=== PATIENT | male | born 1945 | race Caucasian/White ===

== ENCOUNTER 2022-12-30 14:49 | Outpatient (AMB) | payer MEDICARE, SELFPAY ==
[2022-12-30 15:01] VITALS: BP 120/78; PULSE 60; O2SAT 93; BMI 42.0
--- NOTE | 2022-12-30 15:01 | A.OFFPC_ITS ---
Vital Signs 12/30/22 15:01 Height 5 ft 11 in Weight 301 lb 8 oz BMI 42.0 BP 120/78 Pulse 60 Pulse Source Pulse Oximeter Pulse Oximetry (%) 93 Intake Visit Reasons: New patient-High BP Intake Note: Patient is here as a new patient, would like to talk about congestion. He has a history of high blood pressure. Allergies topical bacitricin Allergy (Mild, Uncoded 12/30/22 15:05) rash Tobacco use date assessed: 12/30/22 Fall risk assessment: 1 Fall in past year Last assessed Fall Risk: 12/30/22 Dental Screening Dental Screen Date: 12/30/22 Did you have a dental visit in the last 12 months?: Yes Did you have a dental problem in the last 6 months where you did not have access to dental care?: No Was dental information given to patient?: Patient has dentist HPI New patient-High BP HPI Details New patient Prior PCP:? Dr Weiss in [facility] Last office visit/CPE: Almost a year Acute issue(s): Prostate CA. Neg Bone Scan & CT. Has new local Urologist at [facility].Dr Farr Has oncologist. Radiation. NAsal congestion and discharge PMHx: Prostate CA, HTN, Gout, Arthritis, Renal cell CA, HLD. SurgHx: B/L Knee replacements, B/L Carpal Tn. GB, Ing hernia, R ankle fusion, R kidney partial resection, L kidney ablation FHx: Sister: Brain Tumor, Mom: Leukemia. Brother: DM, Asthma. SocHx: Nonsmoker, EtOH 3 drinks a week., No Drugs PFSH Medical History (Updated 12/30/22 @ 15:59 by Harris Flynn) FH: cholecystectomy Arthritis of right ankle Prostate cancer High blood pressure Surgical History (Updated 12/30/22 @ 15:59 by Harris Flynn) History of bilateral knee replacement History of carpal tunnel surgery History of ankle surgery Family History (Updated 12/30/22 @ 15:31 by Radha Norris CMA) Mother Cardiovascular disease Cancer Father High blood pressure Social History (Updated 12/30/22 @ 15:27 by Radha Norris CMA) Household Members: Spouse Housing Other:: cottage Are you a primary health care aide to a significant other at home: Yes Do you presently have visiting nurse or other home services: No 75 years or older and lives alone: No Alcohol intake: current Patient Tobacco Use Status: Never used Tobacco e-Cigarette/Vaping Use: Never Used Special nikkie needs: Yes Special nikkie accommodation details: [employer] service: No Current occupational status: retired Cognitive needs: No Hearing needs: Yes Vision needs: Yes (patient wears glasses) Questionnaire PHQ-9 Over the last 2 weeks, how often have you been bothered by any of the following problems? 1. Little interest or pleasure in doing things: not at all 2. Feeling down, depressed, or hopeless: several days 3. Trouble falling or staying asleep, or sleeping too much: not at all 4. Feeling tired or having little energy: not at all 5. Poor appetite or overeating: not at all 6. Feeling bad about yourself - or that you are a failure or have let yourself or your family down: not at all 7. Trouble concentrating on things, such as reading the newspaper or watching television: not at all 8. Moving or speaking so slowly that other people could have noticed. Or the opposite - being so fidgety or restless that you have been moving around a lot more than usual: not at all 9. Thoughts that you would be better off or of hurting yourself in some way: not at all Total score: 1 Source: Developed by Drs. Yusuf Perez, Kylah Wright, Tyler Paulson and colleagues, with an educational mamadou from [employer]. Thrive Questionnaire Date Thrive assessed: 12/30/22 I am a: Patient What is your living situation today?: I have a steady place to live Within the past 12 months, did the food you bought not last and you didn't have the money to get more?: Never true Within the past 12 months, did you worry whether your food would run out before you got money to buy more?: Never true Do you have trouble paying for medicines?: No Do you have trouble getting transportation to medical appointments?: No Do you have trouble paying your heating and electricity bill?: No Do you have trouble taking care of your child, family member or friend?: No Do you have trouble with day-to-day activities such as bathing, preparing meals, shopping, managing finances, etc.?: No Are you currently unemployed and looking for a job?: No Are you interested in more education?: No AUDIT C Alcohol Use Questionnaire (AUDIT-C) 1. How often do you have a drink containing alcohol?: 2-3 times a week 2. How many drinks containing alcohol do you have on a typical day when you are drinking?: 1 or 2 3. How often do you have six or more drinks on one occasion?: Never Total Score: 3 TRACE-7 AMB Questionnaire TRACE-7 Date TRACE - 7 assessed: 12/30/22 Feeling nervous, anxious, or on edge: 0 = Not at all Not being able to stop or control worryin = Several days Worrying too much about different things: 1 = Several days Trouble relaxin = Several days Being so restless that it is hard to sit still: 0 = Not at all Becoming easily annoyed or irritable: 0 = Not at all Feeling afraid as if something awful might happen: 0 = Not at all Total TRACE-7 score (0-4 normal; 5-9 mild; 10-14 moderate; 15-21 severe): 3 Source: Developed by Drs. Yusuf Perez, Kylah Wright, Tyler Paulson and colleagues, with an educational mamadou from [employer]. Review of Systems Const Denies chills, Denies fatigue, Denies fever(s), Denies headache(s) and Denies weakness ENT Denies dizziness and Denies headache(s) Card Denies chest pain, Denies lightheadedness, Denies dyspnea and Denies other (Palpitations) Resp Denies cough, Denies dyspnea, Denies wheezing and Denies other ( shortness of breath) Musc Denies numbness and Denies tingling Neuro Denies dizziness, Denies headache(s), Denies numbness, Denies tingling, Denies paresthesias and Denies weakness Psych Denies anxiety and Denies depression Endo Denies fatigue Aller/Immun Denies wheezing Physical exam (Primary Care) Vital Signs: Last Vital Signs Pulse 60 12/30/22 15:01 BP 120/78 12/30/22 15:01 Pulse Ox 93 12/30/22 15:01 BMI result Body Mass Index 42.0 Tobacco/Smoking Status: Tobacco use Status Tobacco use date assessed 12/30/22 12/30/22 15:32 Patient Tobacco Use Status Never used Tobacco 12/30/22 15:32 e-Cigarette/Vaping Use Never Used 12/30/22 15:32 PHQ-9: PHQ-9 Score PHQ-9: Total score 1 12/30/22 15:37 Thrive Assessment: Date of Thrive Assessment Date Thrive assessed 12/30/22 12/30/22 15:38 Const General: no acute distress and well developed Orientation/consciousness: patient oriented x3 HENMT Head: Yes normocephalic and Yes atraumatic Eyes General: appearance normal, both eyes and all related structures Pupils: Equal, round and reactive pupils present EOM: EOMs intact bilaterally Resp Effort & Inspection: normal respiratory effort Auscultation: clear to auscultation bilaterally Cardio Rate: regular rate Rhythm: regular rhythm Heart sounds: S1 normal heart sound present, S2 normal heart sound present, no gallops, no murmurs and no rubs Neuro General: patient oriented x3 and gait normal Cranial nerves: Yes Equal, round and reactive pupils present Psych Affect: normal affect Assessment and Plan Assessment & Plan (1) Abnormal heart rhythm: Code(s): I49.9 - Cardiac arrhythmia, unspecified Plan: EKG: ?Mild?sinus?bradycardia?with?PVCs. ?Inferior?infarct - age?undetermined,?no?ST-T-wave?changes No?symptoms Referred?to?cardiology (2) Gout: Code(s): M10.9 - Gout, unspecified Plan: Stable Continue?colchicine Check?uric?acid?level (3) Hyperlipidemia: Code(s): E78.5 - Hyperlipidemia, unspecified Plan: Check?lab (4) Rhinitis: Code(s): J31.0 - Chronic rhinitis Plan: Unclear?cause; probable?irritant?or?allergy Trial?Flonase Trial?cetirizine Humidified?air Nasal?saline Recommended?hypoallergenic?pillow?case?and?mattress?covers?and?change?bedding?fr equently (5) Arthritis: Code(s): M19.90 - Unspecified osteoarthritis, unspecified site Plan: Reviewed?renal?function?and?this?is?within?normal?limits Could?use?some?NSAIDs?sparingly Topicals?advised. 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 Referred to Cardiology Orders: Orders Complete Blood Count Auto Diff Today Z00.00 - Encounter for general adult medical examination without abnormal findings Microalbumin, Random (w Creat) Today I10 - Essential (primary) hypertension TSH reflex Free T4 Today Z00.00 - Encounter for general adult medical examination without abnormal findings Comprehensive [place]. Panel Fast Today Z00.00 - Encounter for general adult medical examination without abnormal findings Lipid Panel Today Z00.00 - Encounter for general adult medical examination without abnormal findings Prostate Specific Antigen Scr Today Z12.5 - Encounter for screening for malignant neoplasm of prostate UA and rflx microscopic Today Z00.00 - Encounter for general adult medical examination without abnormal findings AMB EKG-In Office Today I49.9 - Cardiac arrhythmia, unspecified Uric Acid Today M10.9 - Gout, unspecified Referrals Cardiology Referral I49.9 - Cardiac arrhythmia, unspecified, R94.31 - Abnormal electrocardiogram [ECG] [EKG] Medications: New fluticasone propionate 50 mcg/actuation (Flonase Allergy Relief) administer into each nostril 1 spray intranasal Q12H 30 days 16 grams 2RF cetirizine (All Day Allergy (cetirizine)) 10 mg PO DAILY 90 days PRN 90 tabs 2RF allergy symptoms Coding Level of Care Code New Pt Level 4 (77058) Diagnoses Abnormal heart rhythm I49.9 Gout M10.9 Hyperlipidemia E78.5 Rhinitis J31.0 Arthritis M19.90 Abnormal EKG R94.31
== END 2022-12-30 16:46 | disposition home or self-care (01) ==
PROVIDERS: PCP Family Medicine; Visit Provider Family Medicine
DX: I49.9 Cardiac arrhythmia, unspecified (principal); M10.9 Gout, unspecified; E78.5 Hyperlipidemia, unspecified; C61 Malignant neoplasm of prostate; J31.0 Chronic rhinitis; M19.90 Unspecified osteoarthritis, unspecified site; R94.31 Abnormal electrocardiogram [ECG] [EKG]; I10 Essential (primary) hypertension
CPT/HCPCS: 93000; 99204

== ENCOUNTER 2023-01-01 08:11 | Outpatient (REF) | payer MEDICARE, SELFPAY ==
[2023-01-01 11:38] LABS: MANUAL DIFF FLAG NO
[2023-01-01 11:50] LABS: Appearance Urine Clear; Color Urine Yellow; Glucose Urine UA Negative (Negative); Leukocyte Esterase Urine Negative (Negative); Nitrite Urine Negative (Negative); PH 5.5 (5.0-9.0); Specific Gravity - Urine 1.015 (1.005-1.025); Urine Blood Negative (Negative); Urine Ketones Negative (Negative); Urine Protein Negative (Neg-Trace)
[2023-01-01 12:07] LABS: Basophils Percent Auto 0.4 % (0-2); Eosinophils Absolute Auto 0.1 X10*3/uL (0.0-0.4); Eosinophils Percent Auto 2.3 % (0-4); Hematocrit 45.4 % (42.0-52.0); Hemoglobin 14.5 g/dl (14.0-18.0); Imm Gran Abs Auto 0.02 X10*3/uL (0.00-0.03); Imm Gran Pct Auto 0.4 % (0.0-0.4); Lymphocytes Absolute Auto 1.1 X10*3/uL (1.2-4.9); Lymphocytes Percent Auto 22.4 % (20-40); Mean Corpuscular HGB Conc 31.9 g/dl (31.0-36.0); Mean Corpuscular Hemoglobin 25.9 pg (27.0-33.0); Mean Corpuscular Volume 81.2 fL (80.0-98.0); Mean Platelet Volume 11.4 fL (9.4-12.4); Monocytes Absolute Auto 0.6 X10*3/uL (0.1-1.2); Monocytes Percent Auto 12.4 % (2-11); Neutrophils Percent Auto 62.1 % (45-73); Platelet Count 181 X10*3/uL (160-400); Red Blood Count 5.59 X10*6/uL (4.60-5.80); Red Cell Distribution Width 17.2 % (11.0-16.0); White Blood Count 4.8 X10*3/uL (4.8-10.8)
[2023-01-01 13:07] LABS: Prostate Specific Antigen Scr 1.21 ng/mL (<0.05-4.0)
[2023-01-01 13:09] LABS: Alanine Aminotransferase < 5 U/L (0-40); Albumin Level 3.8 g/dL (3.5-5.0); Alkaline Phosphatase 52 U/L (39-117); Anion Gap 12 (12-20); Aspartate Amino Transferase 12 U/L (5-37); Bilirubin Total 0.9 mg/dL (0.0-1.0); Blood Urea Nitrogen 32 mg/dL (9-16); Calcium 9.2 mg/dL (8.4-10.2); Carbon Dioxide 29 mmol/L (22-29); Chloride 105 mmol/L (96-108); Cholesterol 155 mg/dL (<200); Estimated Glomerular Filt Rate > 60; Glucose Fasting 96 mg/dL (60-99); HDL Cholesterol 53 mg/dL (>40); LDL Cholesterol Calculated 90 mg/dL (<100); Potassium 4.3 mmol/L (3.3-5.1); Sodium 142 mmol/L (135-145); TSH reflex Free T4 1.45 uIU/mL (0.32-4.0); Total Protein 6.4 g/dL (6.5-8.0); Triglycerides 61 mg/dL (<150); Uric Acid 6.3 mg/dL (3.4-7.0)
[2023-01-01 13:12] LABS: Creatinine Urine 98.84 mg/dL; Microalbum/Creatinine Ratio Ur 53.6 ug/mg cr (<30)
== END 2023-01-01 08:12 | disposition home or self-care (01) ==
LOC: HO.WFDLDS 08:11
PROVIDERS: Visit Provider Family Medicine
DX: Z00.00 Encounter for general adult medical examination without abnormal findings (principal); I10 Essential (primary) hypertension; M10.9 Gout, unspecified; Z12.5 Encounter for screening for malignant neoplasm of prostate
CPT/HCPCS: 36415; 80053; 80061; 81003; 82043; 82570; 84153; 84443; 84550; 85025

== ENCOUNTER 2023-04-13 10:46 | Outpatient (AMB) | payer MEDICARE, SELFPAY ==
[2023-04-13 10:59] VITALS: BP 150/70; PULSE 65; BMI 41.5
--- NOTE | 2023-04-13 10:59 | MHC.OFFVIS ---
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 Intake Note: NPV w/ EKG Last Trimmer Required: No Accompanied by: Self / Same As Patient Allergies topical bacitricin Allergy (Mild, Uncoded 04/13/23 11:00) rash Medication List - Last Reconciled 04/13/23 by Elliot Ambrosio MD abiraterone 1,000 mg PO DAILY amlodipine 5 mg PO DAILY 90 days ascorbic acid (vitamin C) 2 grams PO Q8H aspirin (Adult Aspirin Regimen) 81 mg PO DAILY cetirizine (All Day Allergy (cetirizine)) 10 mg PO DAILY PRN 90 days cholecalciferol (vitamin D3) 50 mcg PO DAILY colchicine 0.6 mg PO DAILY finasteride 5 mg PO DAILY fluticasone propionate 50 mcg/actuation (Flonase Allergy Relief) 1 spray intranasal Q12H 30 days potassium citrate ER 20 mEq PO TID prednisone 5 mg PO DAILY saw palmetto 160 mg PO BID tamsulosin 0.4 mg PO DAILY HPI HPI Comments History of Present Illness Details Karmen is here for consultation regarding an abnormal EKG. Patient himself denies any history of coronary disease or myocardial infarction or cardiomyopathy or in fact any other cardiac issues. He does not walk much because of musculoskeletal issues. Otherwise, he states he is living in [place], but because of his 's health, he moved locally as his daughter lives nearby. Within limits of her activity, he has not noticed any clear-cut anginal-type symptoms. A vague shoulder pain in the left side. The could also be muscular however. Some shortness of breath at times but again he is also overweight. [facility] Medical History FH: cholecystectomy Arthritis of right ankle Prostate cancer High blood pressure Surgical History History of bilateral knee replacement History of carpal tunnel surgery History of ankle surgery Family History Mother Cardiovascular disease Cancer Father High blood pressure Social History Household Members: Spouse Housing Other:: nelda Are you a primary day care center director to a significant other at home: Yes Do you presently have visiting nurse or other home services: No 75 years or older and lives alone: No Alcohol intake: current Patient Tobacco Use Status: Never used Tobacco e-Cigarette/Vaping Use: Never Used Special nikkie needs: Yes Special nikkie accommodation details: [employer] service: No Current occupational status: retired Cognitive needs: No Hearing needs: Yes Vision needs: Yes (patient wears glasses) Review of Systems Const Denies chills, Denies daytime sleepiness, Denies fatigue, Denies fever(s), Denies frequent falls, Denies night sweats, Denies snoring, Denies weakness, Denies weight gain and Denies weight loss Eyes Denies loss of vision ENT Denies dizziness and Denies hearing loss Card Denies chest pain, Denies chest pain with activity, Denies syncope, Denies rapid heart rate, Denies edema, Denies claudication, Denies leg edema, Denies lightheadedness, Denies palpitations, Denies dyspnea on exertion and Denies orthopnea Resp Denies cough, Denies excessive phlegm production, Denies dyspnea on exertion, Denies snoring and Denies wheezing GI Denies abdominal pain, Denies hematochezia, Denies change in bowel habits, Denies change in stool character, Denies heartburn, Denies nausea and Denies vomiting Denies hematuria, Denies dysuria and Denies urinary frequency Musc Denies arthralgias, Denies muscle weakness, Denies numbness and Denies tingling Skin/Breast Denies nail changes and Denies rash Neuro Denies Abnormal speech present, Denies dizziness, Denies syncope, Denies frequent falls, Denies loss of vision, Denies memory loss, Denies numbness, Denies tingling and Denies weakness Psych Denies depression and Denies memory loss Endo Denies fatigue and Denies palpitations Aller/Immun Denies wheezing Physical Exam Vital Signs: Last Vital Signs Pulse 65 04/13/23 10:59 BP 150/70 H 04/13/23 10:59 BMI result Body Mass Index 41.5 Const General: comfortable and no acute distress Orientation/consciousness: patient oriented x3 HEENT Other: Unremarkable Head: Yes normal to inspection Neck Neck: Yes normal visual inspection Chest Chest palpation & inspection: normal inspection of the chest Resp Auscultation: clear to auscultation bilaterally Cardio Palpation: normal PMI Heart sounds: S1 normal heart sound present, S2 normal heart sound present, no gallops, Murmur heart sound present systolic II/ and at the right sternal border and no rubs GI Palpation (GI): Soft to palpation Back/Spine/Pelvis Other: unremarkable Skin General skin exam: no rashes or lesions noted Neuro General: patient oriented x3 Speech: No Abnormal speech present Extrem General: Yes normal to inspection Psych Mental Status: mental status grossly normal Office Procedures EKG Details: EKG with sinus rhythm at 65/Min; borderline PA prolongation to 212 milliseconds; right bundle-branch block; PVCs; [place]. 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 We will get an echocardiogram for cardiac function assessment. If any significant cardiomyopathy/wall motion abnormalities, possibly consider cardiac catheterization. If not, stress testing. He also has aortic stenotic murmur and hence need to ensure there is nothing hemodynamically significant. (2) PVC (premature ventricular contraction): Code(s): I49.3 - Ventricular premature depolarization Plan: Obtain Holter for assessing PVC burden. Plan Follow-up after testing. Orders: Orders CA echo transthoracic complete Today I49.3 - Ventricular premature depolarization, R94.31 - Abnormal electrocardiogram [ECG] [EKG] ECG 3 day holter monitor Today I49.3 - Ventricular premature depolarization Coding Level of Care Code New Pt Level 4 (81670) Diagnoses Abnormal electrocardiography R94.31 PVC (premature ventricular contraction) I49.3 CPT Codes EKG - CPT: [id number], Complete ([id number])
== END 2023-04-13 11:21 | disposition home or self-care (01) ==
PROVIDERS: PCP Family Medicine; Visit Provider Internal Medicine
DX: R94.31 Abnormal electrocardiogram [ECG] [EKG] (principal); I49.3 Ventricular premature depolarization
CPT/HCPCS: 93010; 99204

== ENCOUNTER → 2023-04-13 10:46 | Outpatient (BNVA) | payer MEDICARE, SELFPAY | PROVIDERS: PCP Family Medicine; Visit Provider Internal Medicine | DX: R94.31 Abnormal electrocardiogram [ECG] [EKG] (principal); I49.3 Ventricular premature depolarization | CPT/HCPCS: 93005; 99202 ==

== ENCOUNTER 2023-04-16 10:46 | Outpatient (AMB) | payer MEDICARE, SELFPAY ==
[2023-04-16 11:03] VITALS: BP 124/78; PULSE 61; BMI 38.4
--- NOTE | 2023-04-16 11:03 | A.OFFPC_ITS ---
Vital Signs 04/16/23 11:03 Height 6 ft 2 in Weight 299 lb 4 oz BMI 38.4 BP 124/78 Blood Pressure Location Lt brachial Position Sitting Pulse 61 Pulse Source Pulse Oximeter Intake Visit Reasons: CPE Intake Note: Patient is here for his physical today. Allergies topical bacitricin Allergy (Mild, Uncoded 04/16/23 11:05) rash Tobacco use date assessed: 04/16/23 Fall risk assessment: No Falls in past year Last assessed Fall Risk: 04/16/23 HPI CPE HPI Details Presents?for?extended?exam Reviewed?labs?with?patient. PSA?is?1.21?and?previously?around?0.9,?per?patient.??He?has?a?history? of?prostate?cancer?and?is?followed?by??[facility] Microalbumin/creatinine?ratio?is?high He?notes?that?his?blood?pressures?at?home?have?been?high?and?he?says?that??Aretha chamorro?had?considered?increasing?his?amlodipine. His?other?labs?are?okay He?has?significant?right?ankle?arthritis?and?uses?an?orthotic?brace.??Significan t?pain?and?walking?with?limp?and?uses?cane.??Uses?a?walker?at?home?to?take?p ressure?off?his?ankle. He?would?like?a?referral?to?Orthopedics?to?consider?steroid?injection?therapy. 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 ?Hebert?is?planning?an?echocardiogram?and?Holter?monitor?test?as?well?as ?possible?cardiac?catheterization. No?other?complaints?today [facility] Medical History FH: cholecystectomy Arthritis of right ankle Prostate cancer High blood pressure Surgical History History of bilateral knee replacement History of carpal tunnel surgery History of ankle surgery Family History Mother Cardiovascular disease Cancer Father High blood pressure Social History Household Members: Spouse Housing Other:: nelda Are you a primary residential child care counselor to a significant other at home: Yes Do you presently have visiting nurse or other home services: No 75 years or older and lives alone: No Alcohol intake: current Patient Tobacco Use Status: Never used Tobacco e-Cigarette/Vaping Use: Never Used Special nikkie needs: Yes Special nikkie accommodation details: [employer] service: No Current occupational status: retired Cognitive needs: No Hearing needs: Yes Vision needs: Yes (patient wears glasses) Questionnaire PHQ-9 Over the last 2 weeks, how often have you been bothered by any of the following problems? 1. Little interest or pleasure in doing things: not at all 2. Feeling down, depressed, or hopeless: not at all 3. Trouble falling or staying asleep, or sleeping too much: not at all 4. Feeling tired or having little energy: not at all 5. Poor appetite or overeating: not at all 6. Feeling bad about yourself - or that you are a failure or have let yourself or your family down: not at all 7. Trouble concentrating on things, such as reading the newspaper or watching television: not at all 8. Moving or speaking so slowly that other people could have noticed. Or the opposite - being so fidgety or restless that you have been moving around a lot more than usual: not at all 9. Thoughts that you would be better off or of hurting yourself in some way: not at all Total score: 0 Source: Developed by Drs. Yusuf Perez, Kylah Wright, Tyler Paulson and colleagues, with an educational mamadou from [employer]. Thrive Questionnaire Date Thrive assessed: 04/16/23 I am a: Patient What is your living situation today?: I have a steady place to live Within the past 12 months, did the food you bought not last and you didn't have the money to get more?: Never true Within the past 12 months, did you worry whether your food would run out before you got money to buy more?: Never true Do you have trouble paying for medicines?: No Do you have trouble getting transportation to medical appointments?: No Do you have trouble paying your heating and electricity bill?: No Do you have trouble taking care of your child, family member or friend?: Yes Do you have trouble with day-to-day activities such as bathing, preparing meals, shopping, managing finances, etc.?: No Are you currently unemployed and looking for a job?: No Are you interested in more education?: No THRIVE Score: 0 AUDIT C Alcohol Use Questionnaire (AUDIT-C) 1. How often do you have a drink containing alcohol?: Monthly or less 2. How many drinks containing alcohol do you have on a typical day when you are drinking?: 1 or 2 3. How often do you have six or more drinks on one occasion?: Never Total Score: 1 TRACE-7 AMB Questionnaire TRACE-7 Date TRACE - 7 assessed: 04/16/23 Feeling nervous, anxious, or on edge: 0 = Not at all Not being able to stop or control worryin = Not at all Worrying too much about different things: 0 = Not at all Trouble relaxin = Not at all Being so restless that it is hard to sit still: 0 = Not at all Becoming easily annoyed or irritable: 0 = Not at all Feeling afraid as if something awful might happen: 0 = Not at all Total TRACE-7 score (0-4 normal; 5-9 mild; 10-14 moderate; 15-21 severe): 0 Source: Developed by Drs. Yusuf Perez, Kylah Wright, Tyler Paulson and colleagues, with an educational mamadou from [employer]. Review of Systems Const Denies chills, Denies fatigue, Denies fever(s), Denies headache(s) and Denies weakness Eyes Denies change in vision ENT Denies dizziness, Denies headache(s), Denies hearing loss, Denies nasal congestion, Denies sinus pain, Denies sinus pressure and Denies sore throat Card Denies chest pain, Denies lightheadedness, Denies dyspnea and Denies other (palpitations) Resp Denies cough, Denies dyspnea and Denies wheezing GI Denies abdominal pain, Denies melena, Denies hematochezia, Denies change in bowel habits, Denies dyspepsia and Denies nausea Denies hematuria and Denies dysuria Musc Details: Right?ankle?pain,?stiffness?and?swelling.?? Denies abnormal gait, Denies myalgias, Reports arthralgias, Denies numbness and Denies tingling Skin/Breast Denies rash, Denies unusual bruising and Denies wounds Neuro Denies abnormal gait, Denies dizziness, Denies headache(s), Denies memory loss, Denies numbness, Denies Sensory deficit (Neuro), Denies tingling and Denies weakness Psych Denies anxiety, Denies depression and Denies memory loss Endo Denies cold intolerance, Denies fatigue, Denies heat intolerance, Denies polydipsia and Denies polyuria Dilan/Lymph Denies easy bleeding and Denies easy bruising Aller/Immun Denies wheezing Physical exam (Primary Care) Vital Signs: Last Vital Signs Pulse 61 04/16/23 11:03 BP 124/78 04/16/23 11:03 BMI result Body Mass Index 38.4 Tobacco/Smoking Status: Tobacco use Status Tobacco use date assessed 04/16/23 04/16/23 11:06 Patient Tobacco Use Status Never used Tobacco 04/16/23 11:05 e-Cigarette/Vaping Use Never Used 04/16/23 11:05 PHQ-9: PHQ-9 Score PHQ-9: Total score 0 04/16/23 11:10 Thrive Assessment: Date of Thrive Assessment Date Thrive assessed 04/16/23 04/16/23 11:10 Const General: no acute distress, well developed, alert and awake Nutritional Appearance: well nourished Orientation/consciousness: patient oriented x3 HENMT Head: Yes normocephalic and Yes atraumatic Ears: hearing grossly normal bilaterally and TM's normal bilaterally General nose exam: Normal external nose present and Normal nares present Mouth: Normal oral and palatal mucosa present and moist mucous membranes Teeth and gingiva: dentition normal Throat: Yes posterior oropharynx normal Eyes Pupils: Equal, round and reactive pupils present and Pupil accommodation reflex normal EOM: EOMs intact bilaterally Neck Neck: Yes normal visual inspection, Yes no lymphadenopathy and Yes trachea midline Thyroid: Thyroid normal Carotids: no bruits Lymphatic: no lymphadenopathy noted Chest Chest palpation & inspection: normal inspection of the chest Resp Effort & Inspection: normal respiratory effort Auscultation: clear to auscultation bilaterally Cardio Rate: regular rate Rhythm: regular rhythm Heart sounds: S1 normal heart sound present, S2 normal heart sound present, no gallops, Murmur heart sound present (Faint,?1/6?systolic?murmur?over?aortic?region) and no rubs Bruits: no abdominal aortic bruits and no carotid bruits GI Palpation (GI): No Abdominal aortic bruit present, Soft to palpation, nontender, No hepatosplenomegaly present and No Rebound tenderness present Auscultation: normal bowel sounds General: Yes no CVA tenderness Back/Spine/Pelvis Back: no CVA tenderness Cervical Spine: cervical ROM normal and No Cervical spine tenderness Thoracic/Lumbar Spine: thoraco-lumbar ROM normal, No pain with thoraco-lumbar ROM, No thoracic spinal tenderness and No lumbar spinal tenderness Skin Lesions: no lesions Rashes: no rashes Trauma: no lacerations or abrasions Wounds: no wounds Nails: normal Neuro General: patient oriented x3, gait normal and CN's II-XI intact bilaterally Cranial nerves: Yes Equal, round and reactive pupils present Cognition (Neuro): normal cognition Gait exam (Neuro): Normal gait present Motor exam (neuro): 5/5 motor strength present throughout Sensory Exam: No Sensory deficit (Neuro) Deep tendon reflexes (DTR's): Right patellar reflex intensity grade: 2+ and Left patellar reflex intensity grade: 2+ Extrem Other: Right?ankle?pain,?stiffness?and?swelling.??No?redness?or?warmth. General: Yes normal to inspection and No edema Psych Appearance: grossly normal Affect: normal affect Attitude: cooperative Thought process: Normal thought process present Assessment and Plan Assessment & Plan (1) High blood pressure: Code(s): I10 - Essential (primary) hypertension Plan: Will?increase?his?amlodipine?as?he?notes?his?blood?pressures?have?been?high?at?h ome. 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 Increase?amlodipine?from?5?mg?daily?to?10?mg?daily He?will?keep?a?log?of?his?blood?pressures. He?has?follow-up?appointments?with?cardiology. (2) Arthritis: Code(s): M19.90 - Unspecified osteoarthritis, unspecified site Plan: Significant?right?ankle?arthritis. 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 Now?followed?by?cardiology.??He?has?workup?pending LDL?cholesterol?is?above?70. ?He?will?discuss?cholesterol?control?with?his?toll settlement clerk?at?upcoming?appointme nt. (4) PVC (premature ventricular contraction): Code(s): I49.3 - Ventricular premature depolarization Plan: Has?Holter?monitor?scheduled?and?will?follow-up?with?Cardiology (5) Prostate cancer: Code(s): C61 - Malignant neoplasm of prostate Plan: Followed?by? Follow-up?with?urology?as?recommended (6) Adult general medical exam: Code(s): Z00.00 - Encounter for general adult medical examination without abnormal fin dings Plan: Encouraged?healthy?diet?with?active?lifestyle?and?plenty?of?exercise?as?tolerate d Orders: Referrals Orthopedics Referral M19.90 - Unspecified osteoarthritis, unspecified site, M25.571 - Pain in right ankle and joints of right foot Medications: Changed From amlodipine 5 mg PO DAILY 90 days 90 tabs 3RF To amlodipine 10 mg (2 x 5 mg) PO DAILY 180 tabs 3RF 90 days Coding Level of Care Code Est Pt Level 4 (05877) Diagnoses High blood pressure I10 Arthritis M19.90 Abnormal electrocardiography R94.31 PVC (premature ventricular contraction) I49.3 Prostate cancer C61 Adult general medical exam Z00.00
== END 2023-04-16 11:44 | disposition home or self-care (01) ==
PROVIDERS: PCP Family Medicine; Visit Provider Family Medicine
DX: Z00.00 Encounter for general adult medical examination without abnormal findings (principal); I10 Essential (primary) hypertension; R94.31 Abnormal electrocardiogram [ECG] [EKG]; C61 Malignant neoplasm of prostate; M19.90 Unspecified osteoarthritis, unspecified site; I49.3 Ventricular premature depolarization
CPT/HCPCS: 99214; 99397

== ENCOUNTER → 2023-05-05 12:48 | Outpatient (REF) | payer MEDICARE, SELFPAY ==
--- NOTE | 2023-05-05 12:51 | CA_ITS ---
Transthoracic Echocardiogram Patient (Last, First, Middle): Karmen Jackson V Gender: Male Date of : 1945 Age: 77 Procedure Date: 05/05/2023 Procedure Type: Transthoracic Echocardiogram Location: OP Height: 200.66 cm Weight: 133.36 kg BSA: 2.68 m2 Heart Rate: bpm BP: 159 / 82 mmHg Casting Molder: ERIC Referring MD: Elliot Ambrosio MD Insulator Apprentice: Kishor Snow MD Symptoms: R94.31 - Abnormal electrocardiogram [ECG] [EKG] Study Quality: Fair ECG Rhythm: Sinus with extra beats Conclusions: - 1. Normal LV systolic function with impaired relaxation filling pattern 2. Cardiac valvular Dopplers within normal limits 3. Normal RV systolic pressure 4. Mildly dilated ascending aorta at 4.3 cm 5. No pericardial effusion Findings Left Ventricle Normal left ventricular size, thickness, and systolic function. The visually estimated ejection fraction is between 55-60%. Spectral Doppler is indicative of an impaired relaxation filling pattern. E/E prime ratio is between 8 and 15 consistent with indeterminate filling pressures. Right Ventricle Normal right ventricular cavity size and systolic function. Atria Mild biatrial enlargement. Interatrial shunt cannot be excluded. Aortic Valve There is mild calcification of the aortic valve. There is mild thickening of the aortic valve. There is no aortic valve stenosis. There is no aortic valve regurgitation. Mitral Valve There is mild anterior and posterior mitral leaflet thickening. There is mild mitral annular calcification. There is trace mitral valve regurgitation. There is no mitral valve stenosis. Pulmonic Valve The pulmonic valve is likely normal. Tricuspid Valve Normal tricuspid valve structure. There is trace tricuspid valve regurgitation. The right ventricular systolic pressure is normal. The right ventricular systolic pressure is 21 mmHg. Normal right atrial pressure. There is no evidence of pulmonary hypertension. Great Vessels The pulmonary artery was not well visualized. There is mild dilatation of the ascending aorta measuring 4.30 cm. Small plaque is seen in the sino tubular ridge. Venous The inferior vena cava is normal in size and collapses greater than 50% with inspiration. Pericardium/Pleural There is no evidence of pericardial effusion. Prior Study Comparison No prior study available for comparison. Measurements 2D Linear Measurements IVSd: 0.98 0.6-0.9/0.6-1.0 cm LVIDd: 5.38 3.9-5.3/4.2-5.9 cm LVIDd Index: 2.01 2.4-3.2/2.2-3.1 cm/m2 LVIDs: 4.16 2.0-3.6 cm LVPWd: 1.08 0.7-1.1 cm LA Diam: 4.20 2.7-3.8/3.0-4.0 cm LAIDs Index: 1.57 1.5-2.3 cm/m2 LV Mass: 266.87 67-162/88-224 g LV Mass Index: 99.58 43-95/49-115 g/m2 LVOT Diam: 2.50 3.0+(-)1.3 cm 2D Systolic Function EF 4C: 57.30 >55% EF 2C: 60.00 >55% EF BiP: 58.60 >55% Mitral Valve MV Pk E: 0.65 MV PK A: 0.80 MV Decel Time: 223.00 E/A: 0.80 E'Lateral: 5.77 E'Medial: 3.05 E/E' Med: 21.30 E/E' Lat: 11.20 PHT: 65.00 MVA PHT: 3.38 Decel Attala: 2.92 Aortic Valve AoV Pk Gabe: 1.78 AoV Mn Gabe: 1.28 AoV VTI: 0.38 AoV Pk Grad: 13.00 Aov Mn Grad: 7.00 PATRICIA Cont.VTI: 2.83 LVOT LVOT Pk Gabe: 0.98 LVOT Mn Gabe: 0.67 LVOT VTI: 0.22 LVOT Pk Grad: 4.00 LVOT Mn Grad: 2.00 LVOT Diam: 2.50 LVOT Area: 4.91 Diastolic Function MV Pk E: 0.65 MV Pk A: 0.80 E/A: 0.80 E'Medial: 3.05 E/E' Med: 21.30 E' Laterial: 5.77 E/E' Lat: 11.20 Right Ventricle TAPSE (mm): 26.50 TVS' Gabe: 14.50 Tricuspid Valve TR Pk Gabe: 2.14 TR Pk Grad: 18.00 RA Press: 3.00 RVSP: 21.00 Great Vessels Aorta Sinus of Valsalva: 3.73 2.0-3.[address] Ridge: 2.77 1.7-3.4 cm Ao Asc: 4.30 2.1-3.4 cm Updated in Other Vendor System with Status of Final Kishor Snow MD electronically signed on 05/06/2023 12:22:20 PM with status of Final
--- NOTE | 2023-05-05 12:51 | HM_ITS ---
* Total monitoring time 3 days. * Underlying rhythm is sinus with an average ventricular rate of 65/Min. Range 45 to 91/Min. * Frequent ventricular ectopy with a burden of 29%. Evidence of couplets, triplets, bigeminy, trigeminy. Multiple morphologies. Frequent runs noted. Longest 13 beats. Monomorphic. * No significant pauses or AV blocks. * Shoulder pain in patient diary correlates with PVCs; could be incidental. MTDD
== END ==
LOC: HO.CARD 12:48
PROVIDERS: PCP Family Medicine; Visit Provider Internal Medicine
DX: I49.3 Ventricular premature depolarization (principal); R94.31 Abnormal electrocardiogram [ECG] [EKG]
CPT/HCPCS: 93242; 93306

== ENCOUNTER → 2023-05-05 12:51 | Outpatient (BNV) | payer MEDICARE, SELFPAY | PROVIDERS: PCP Family Medicine; Visit Provider Internal Medicine Cardiovascular Disease | DX: I49.3 Ventricular premature depolarization (principal) | CPT/HCPCS: 93244; 93306 ==

== ENCOUNTER 2023-06-11 10:26 | Outpatient (AMB) | payer MEDICARE, SELFPAY ==
--- NOTE | 2023-06-11 10:53 | A.OFFPC_ITS ---
Vital Signs 06/11/23 10:54 Height 6 ft 2 in Weight 299 lb BMI 38.4 BP 140/80 H Blood Pressure Location Lt brachial Position Sitting Respiration 14 Pulse 60 Pulse Source Pulse Oximeter Temp 97.6 F Temp Source Temporal Artery Scan Pulse Oximetry (%) 99 Oxygen Delivery Method Room Air Intake Visit Reasons: follow up htn Intake Note: Patient wants to make sure that he is taking correct dosage for Amlodipine. Inspector Technician Required: No Accompanied by: Self / Same As Patient Allergies topical bacitricin Allergy (Mild, Uncoded 06/11/23 10:59) rash Tobacco use date assessed: 04/16/23 Fall risk assessment: No Falls in past year Last assessed Fall Risk: 06/11/23 Dental Screening Dental Screen Date: 06/11/23 Did you have a dental visit in the last 12 months?: Yes Did you have a dental problem in the last 6 months where you did not have access to dental care?: No Was dental information given to patient?: Patient has dentist HPI follow up htn HPI Details 77 y/o male presents to f/u hypertension . Hx of inferior infarct and goal less than 130/80. Had increased his amlodipine from 5mg to 10mg daily as he had noted BPs were consistently elevated at home. Blood pressure today controlled upon relaxation today. He notes his systolic pressure at home continues to fluctuate but lowest SBPs still in 120s, not lower and frequently 140s. He denies any swelling of his feet/ankles. HPI Comments History of Present Illness Details Documentation assistance for Richmond Avelar MD, was provided by Harris Flynn,? Electrical Accessories Assembler on 06/11/2023 11:56 AM DONNA. Marni, Dr. Avelar, have read, observed, and verified documentation. [facility] Medical History FH: cholecystectomy Arthritis of right ankle Prostate cancer High blood pressure Surgical History History of bilateral knee replacement History of carpal tunnel surgery History of ankle surgery Family History Mother Cardiovascular disease Cancer Father High blood pressure Social History Household Members: Spouse Housing: Other Housing Other:: nelda Are you a primary medical care evaluation specialist to a significant other at home: Yes Do you presently have visiting nurse or other home services: No 75 years or older and lives alone: No Alcohol intake: current Patient Tobacco Use Status: Never used Tobacco e-Cigarette/Vaping Use: Never Used Special nikkie needs: Yes Special nikkie accommodation details: Orthodox service: No Current occupational status: retired Cognitive needs: No Hearing needs: Yes Vision needs: Yes (patient wears glasses) Questionnaire Thrive Questionnaire Date Thrive assessed: 04/16/23 TRACE-7 AMB Questionnaire TRACE-7 Date TRACE - 7 assessed: 04/16/23 Source: Developed by Drs. Yusuf Perez, Kylah Wright, Tyler Paulson and colleagues, with an educational mamadou from [employer]. Review of Systems Const Denies chills, Denies fatigue, Denies fever(s), Denies headache(s) and Denies weakness ENT Denies dizziness and Denies headache(s) Card Denies dyspnea Resp Denies cough, Denies dyspnea, Denies wheezing and Denies other (shortness of breath) Musc Denies numbness and Denies tingling Neuro Denies dizziness, Denies headache(s), Denies numbness, Denies tingling and Denies weakness Psych Denies anxiety and Denies depression Endo Denies fatigue Aller/Immun Denies wheezing Physical exam (Primary Care) Vital Signs: Last Vital Signs Temp 97.6 F 06/11/23 10:54 Pulse 60 06/11/23 10:54 Resp 14 06/11/23 10:54 BP 140/80 H 06/11/23 10:54 Pulse Ox 99 06/11/23 10:54 Oxygen Delivery Method Room Air 06/11/23 10:54 BMI result Body Mass Index 38.4 Tobacco/Smoking Status: Tobacco use Status Tobacco use date assessed 04/16/23 06/11/23 11:02 Patient Tobacco Use Status Never used Tobacco 06/11/23 11:02 e-Cigarette/Vaping Use Never Used 06/11/23 11:02 Thrive Assessment: Date of Thrive Assessment Date Thrive assessed 04/16/23 06/11/23 11:02 Const General: well developed; No acute distress Nutritional Appearance: well nourished Orientation/consciousness: patient oriented x3 HENMT Head: Yes normocephalic and Yes atraumatic Eyes General: appearance normal, both eyes and all related structures Pupils: Equal, round and reactive pupils present EOM: EOMs intact bilaterally Resp Effort & Inspection: normal respiratory effort Neuro General: patient oriented x3 and gait normal Cranial nerves: Yes Equal, round and reactive pupils present Psych Affect: normal affect Assessment and Plan Assessment & Plan (1) High blood pressure: Code(s): I10 - Essential (primary) hypertension Plan: Blood?pressures?are?still?elevated?at?homeBPs at home are still elevated above goal of < 130/80 add lisinopril and continued?amlodipine. He?has?ongoing?workup?with?Cardiology?and?a?follow-up?appoi ntment?with?cardiology?in?June Coding Level of Care Code Est Pt Level 3 (34324) Diagnoses High blood pressure I10
[2023-06-11 10:54] VITALS: BP 140/80; PULSE 60; RESP 14; TEMP 36.4; O2SAT 99; BMI 38.4
== END 2023-06-11 12:03 | disposition home or self-care (01) ==
PROVIDERS: PCP Family Medicine; Visit Provider Family Medicine
DX: I10 Essential (primary) hypertension (principal)
CPT/HCPCS: 99213

== ENCOUNTER → 2023-06-21 08:34 | Outpatient (REF) | payer MEDICARE, SELFPAY ==
--- NOTE | ~2023-06-21 | NM_ITS ---
Lexiscan Myocardial perfusion study Indication: Abnormal EKG with inferior infarct, PVCs, right bundle branch block, assess for ischemia Technique: The patient was brought in for a Lexiscan perfusion study on 06/21/2023 and was injected 0.4 mg of Lexiscan intravenously. Within a minute of this injection 45 mCi of sestamibi was given intravenously. Images were obtained using the SPECT gamma camera interlaced with the gating device. Images were obtained in supine position. Resting perfusion study was performed on 06/23/2023. Patient was administered 45 mCi of sestamibi intravenously at rest. Images were then obtained in supine position. Images were processed with the software and compared side to side in short axis, horizontal long axis and vertical long axis views. Total DLP 212mGy-cm. Findings: Raw acquisition reviewed. The stress perfusion study showed diminished tracer uptake along the inferior wall. With CT attenuation correction, there is significant improvement suggestive of components of diaphragmatic attenuation artifact. The gated study shows diminished LV systolic function with calculated LVEF of 35%. LV cavity is dilated in size. The gated study shows diminished inferior wall thickening/contractility. Resting study shows diminished tracer uptake along the inferior wall. With CT attenuation correction, there is improvement suggestive of components of diaphragmatic attenuation artifact. Gating at rest shows inferior akinesis. The findings are consistent with fixed inferior perfusion defect. No reversible defects. NM/IL cardiolite stress test Impression: 1. Myocardial perfusion imaging study shows probable prior inferior infarct. Cannot exclude diaphragmatic attenuation artifact components. 2. Gated LVEF is 35% during stress and 41% during rest. Correlate with echocardiogram. 3. Transient ischemic dilatation not present. EKG component of the test reported separately.
--- NOTE | 2023-06-21 08:38 | CA_ITS ---
Acquisition Time: 2023-06-21 08:48:46 Total Exercise Time: 00:02:00 Test Indications: RBBB, PVCS Medications: SEE H Protocol: LEXISCAN Max HR: 084 BPM 59% of Pred: 142 BPM Max BP: 140/060 mmHG Max Work Load: 1.0 METS Pharmacoloigcal stress test with Lexiscan injection while sitting and marching in place, without anginal symptoms, with isolated PVCs and ventricular cuplet, with normtoensive response, with nondiagnoisitic EKGs. Aminophylline 75mg IVP given to reverse Lexiscan. Nuclear images pending.Test reviewed with Dr. Snow. Referred By: Elliot Ambrosio Overread By: Santa Fam
== END ==
LOC: HO.CARD 08:34
PROVIDERS: PCP Family Medicine; Visit Provider Internal Medicine
DX: R07.2 Precordial pain (principal); I49.3 Ventricular premature depolarization; I20.9 Angina pectoris, unspecified
CPT/HCPCS: 78452; 93017; A9500; J0280; J2785

== ENCOUNTER → 2023-06-21 08:38 | Outpatient (BNV) | payer MEDICARE, SELFPAY | PROVIDERS: PCP Family Medicine; Visit Provider Nurse Practitioner | DX: I21.9 Acute myocardial infarction, unspecified (principal) | CPT/HCPCS: 78452; 93016; 93018 ==

== ENCOUNTER → 2023-07-22 23:59 | Outpatient (BNV) | payer MEDICARE, SELFPAY | PROVIDERS: PCP Family Medicine; Visit Provider Internal Medicine Cardiovascular Disease | DX: R93.1 Abnormal findings on diagnostic imaging of heart and coronary circulation (principal) | CPT/HCPCS: 93458; 99152 ==

== ENCOUNTER 2023-08-05 08:52 | Outpatient (AMB) | payer MEDICARE, SELFPAY ==
[2023-08-05 09:29] VITALS: BP 140/62; PULSE 60; BMI 38.5
--- NOTE | 2023-08-05 09:29 | MHC.OFFVIS ---
Vital Signs 08/05/23 09:29 Height 6 ft 2 in Weight 299 lb 13.259 oz BMI 38.5 BP 140/62 H Blood Pressure Location Lt brachial Position Sitting Pulse 60 Pulse Source Pulse Oximeter Intake Visit Reasons: Follow up post cardiac cath Incident Response Manager Required: No Allergies topical bacitricin Allergy (Mild, Uncoded 08/05/23 09:31) rash Medication List - Last Reconciled 08/05/23 by Naida Lockett [employer]LECT[employer]ALE [employer] abiraterone 1,000 mg PO DAILY amlodipine 10 mg (2 x 5 mg) PO DAILY 90 days aspirin (Adult Aspirin Regimen) 81 mg PO DAILY cetirizine (All Day Allergy (cetirizine)) 10 mg PO DAILY PRN 90 days cholecalciferol (vitamin D3) 50 mcg PO DAILY colchicine 0.6 mg PO DAILY PRN doxycycline hyclate 100 mg PO BID finasteride 5 mg PO DAILY fluticasone propionate 50 mcg/actuation (Flonase Allergy Relief) 1 spray intranasal Q12H 30 days potassium citrate ER 20 mEq PO TID prednisone 5 mg PO DAILY rosuvastatin (Crestor) 10 mg PO DAILY tamsulosin 0.4 mg PO DAILY HPI HPI Follow up post cardiac cath: Details: Karmen is a 77-year-old male with past medical history of hypertension, hyperlipidemia, obesity who is undergoing cardiac evaluation for abnormal EKG. He recently underwent a nuclear stress test, echocardiogram, cardiac catheterization and Holter monitor and now presents for follow-up. Today he reports he has been feeling well with no concerning symptoms. Denies any chest discomfort at rest or with activity. No heart palpitations, lightheadedness, presyncope, syncope, falls. Mild shortness of breath with exertion which is not new. No shortness of breath at rest, PND, orthopnea or edema. He ambulates with a cane due to an old fracture of the right ankle. Tolerates normal ADLs without symptoms. Takes all meds as directed. [facility] Medical History FH: cholecystectomy Arthritis of right ankle Prostate cancer High blood pressure Surgical History (Updated 08/06/23 @ 07:47 by CARLOS SouzaC) History of cardiac cath History of bilateral knee replacement History of carpal tunnel surgery History of ankle surgery Family History Mother Cardiovascular disease Cancer Father High blood pressure Social History Household Members: Spouse Housing: Other Housing Other:: nelda Are you a primary director of critical care to a significant other at home: Yes Do you presently have visiting nurse or other home services: No 75 years or older and lives alone: No Alcohol intake: current Patient Tobacco Use Status: Never used Tobacco e-Cigarette/Vaping Use: Never Used Special nikkie needs: Yes Special nikkie accommodation details: [employer] service: No Current occupational status: retired Cognitive needs: No Hearing needs: Yes Vision needs: Yes (patient wears glasses) Review of Systems Const All systems reviewed & are unremarkable except as noted in HPI and below ENT Denies dizziness Card Denies chest pain, Denies chest pain at rest, Denies chest pain with activity, Denies rapid heart rate, Denies pedal edema, Denies edema, Denies leg edema, Denies lightheadedness, Denies palpitations, Denies dyspnea, Reports dyspnea on exertion and Denies orthopnea Resp Denies cough, Denies dyspnea and Reports dyspnea on exertion GI Denies hematochezia and Denies change in stool character Musc Denies abnormal gait, Denies limited range of motion, Denies muscle cramps, Denies muscle weakness, Denies numbness, Denies radiating pain into limb, Denies stiffness and Denies tingling Neuro Denies abnormal gait, Denies dizziness, Denies numbness and Denies tingling Endo Denies palpitations Physical Exam Vital Signs: Last Vital Signs Pulse 60 08/05/23 09:29 BP 140/62 H 08/05/23 09:29 BMI result Body Mass Index 38.5 Const General: cooperative, healthy appearing, comfortable and no acute distress Orientation/consciousness: patient oriented x3 Neck Neck: Yes normal visual inspection Resp Effort & Inspection: normal respiratory effort Auscultation: clear to auscultation bilaterally, no crackles, no rales, no rhonchi and no wheezes Cardio Jugular venous distension: no JVD Rate: regular rate Rhythm: regular rhythm Heart sounds: S1 normal heart sound present, S2 normal heart sound present, no murmurs and no rubs Neuro General: patient oriented x3 Extrem Other: Right radial catheterization site well healed, easily palpable radial pulse, right hand assessment normal General: Yes normal to inspection and No no pedal edema Psych Appearance: grossly normal Mental Status: mental status grossly normal Speech and movement: Normal speech and movement present Assessment & Plan Assessment & Plan (1) Abnormal electrocardiography: Code(s): R94.31 - Abnormal electrocardiogram [ECG] [EKG] Category: Medical Plan: Cardiac evaluation for EKG showing inferior infarct and PVCs. No prior known history of CAD or AR. he underwent an echocardiogram on 05/05/2023 showing EF 55-60%, normal valves, no regional wall motion abnormality. Nuclear stress test was done on 06/23/2023 showing probable inferior infarct, can not exclude diaphragm attenuation artifact. A Holter monitor was done on 05/05/2023 showing sinus rhythm with average heart rate 65, heart rate range 41 to 91, frequent PVCs, 29% with short runs, longest 13 beats. He then underwent cardiac catheterization on 07/22/2023 showing no significant coronary artery disease. At this time he has no anginal symptoms. Denies any heart palpitations. Case reviewed with Dr. Ambrosio. Will order a cardiac MRI to evaluate for scar, abnormal cardiac muscle findings. Instructed on reduction in stimulants, caffeine. Continue activity as tolerated. Continue aspirin and statin. Emergency care if ever needed for concerning symptoms. Cardiology follow-up in 3 months, sooner if needed. (2) Abnormal nuclear stress test: Code(s): R94.39 - Abnormal result of other cardiovascular function study Category: Medical Plan: As above (3) PVC (premature ventricular contraction): Code(s): I49.3 - Ventricular premature depolarization Category: Medical Plan: As above (4) History of cardiac cath: Comment: 07/22/2023, left main normal, lad less than 30% stenosis, left circumflex and RCA minimal luminal irregularities Code(s): Z98.890 - Other specified postprocedural states Category: Surgical Plan: Right radial catheterization site well healed Plan Time spent on chart review, documentation, interview assessment Orders: Orders cardiac morph fnct w con 08/05/23 I49.3 - Ventricular premature depolarization, R94.31 - Abnormal electrocardiogram [ECG] [EKG], R94.39 - Abnormal result of other cardiovascular function study Basic Metabolic Panel 08/05/23 I49.3 - Ventricular premature depolarization Coding Level of Care Code Est Pt Level 4 (45715) Diagnoses Abnormal electrocardiography R94.31 Abnormal nuclear stress test R94.39 PVC (premature ventricular contraction) I49.3 History of cardiac cath Z98.890 Time Spent (min) 36
== END 2023-08-05 10:04 | disposition home or self-care (01) ==
PROVIDERS: PCP Family Medicine; Visit Provider Nurse Practitioner Family
DX: R94.31 Abnormal electrocardiogram [ECG] [EKG] (principal); R94.39 Abnormal result of other cardiovascular function study; I49.3 Ventricular premature depolarization; Z98.890 Other specified postprocedural states
CPT/HCPCS: 99214

== ENCOUNTER → 2023-08-05 08:52 | Outpatient (BNVA) | payer MEDICARE, SELFPAY | PROVIDERS: PCP Family Medicine; Visit Provider Nurse Practitioner Family | DX: R94.31 Abnormal electrocardiogram [ECG] [EKG] (principal); R94.39 Abnormal result of other cardiovascular function study; I49.3 Ventricular premature depolarization; Z98.890 Other specified postprocedural states | CPT/HCPCS: 99212 ==

== ENCOUNTER 2023-09-03 10:34 | Outpatient (AMB) | payer MEDICARE, SELFPAY ==
--- NOTE | 2023-09-03 11:31 | MHC.PC.OV ---
Vital Signs 09/03/23 11:32 Height 6 ft 2 in Weight 296 lb 4 oz BMI 38.0 BP 128/80 Blood Pressure Location Lt brachial Position Sitting Pulse 53 Pulse Source Pulse Oximeter Pulse Oximetry (%) 97 Oxygen Delivery Method Room Air Intake Visit Reasons: follow up htn Intake Note: Patient is following up on hypertension. He would like to talk about hyperflexing his left wrist a couple of weeks ago. Patient states he was supposed to get another blood pressure med, Lisinopril? Allergies topical bacitricin Allergy (Mild, Uncoded 09/03/23 11:34) rash Medication List - Last Reconciled 09/03/23 by Richmond Avelar MD abiraterone 1,000 mg PO DAILY amlodipine 10 mg (2 x 5 mg) PO DAILY 90 days aspirin (Adult Aspirin Regimen) 81 mg PO DAILY cetirizine (All Day Allergy (cetirizine)) 10 mg PO DAILY PRN 90 days cholecalciferol (vitamin D3) 50 mcg PO DAILY colchicine 0.6 mg PO DAILY PRN doxycycline hyclate 100 mg PO BID finasteride 5 mg PO DAILY fluticasone propionate 50 mcg/actuation (Flonase Allergy Relief) 1 spray intranasal Q12H 30 days potassium citrate ER 20 mEq PO TID prednisone 5 mg PO DAILY rosuvastatin (Crestor) 10 mg PO DAILY tamsulosin 0.4 mg PO DAILY Tobacco use date assessed: 09/03/23 Fall risk assessment: No Falls in past year Last assessed Fall Risk: 09/03/23 Dental Screening Dental Screen Date: 06/11/23 HPI follow up htn HPI Details 78 y/o male presents to f/u hypertension. Blood pressure today 128/80. He is on amlodipine 10mg daily. His blood pressure log indicates it has been higher at home. Pt reports L hand pain. He states he felt like he hyperflexed it. [facility] Medical History (Updated 09/03/23 @ 12:20 by Richmond Avelar MD) FH: cholecystectomy Arthritis of right ankle Prostate cancer High blood pressure Surgical History (Updated 08/06/23 @ 07:47 by IZABELLA Souza) History of cardiac cath History of bilateral knee replacement History of carpal tunnel surgery History of ankle surgery Family History Mother Cardiovascular disease Cancer Father High blood pressure Social History Household Members: Spouse Housing: Other Housing Other:: cottage Are you a primary foster care case manager to a significant other at home: Yes Do you presently have visiting nurse or other home services: No 75 years or older and lives alone: No Alcohol intake: current Patient Tobacco Use Status: Never used Tobacco e-Cigarette/Vaping Use: Never Used Special nikkie needs: Yes Special nikkie accommodation details: [employer] service: No Current occupational status: retired Cognitive needs: No Hearing needs: Yes Vision needs: Yes (patient wears glasses) Questionnaire Thrive Questionnaire Date Thrive assessed: 04/16/23 TRACE-7 AMB Questionnaire TRACE-7 Date TRACE - 7 assessed: 04/16/23 Source: Developed by Drs. Yusuf Perez, Kylah Wright, Tyler Paulson and colleagues, with an educational mamadou from [employer]. Review of Systems Const Denies chills, Denies fatigue, Denies fever(s), Denies headache(s) and Denies weakness ENT Denies dizziness and Denies headache(s) Card Denies dyspnea Resp Denies cough, Denies dyspnea, Denies wheezing and Denies other (shortness of breath) Musc Denies numbness and Denies tingling Neuro Denies dizziness, Denies headache(s), Denies numbness, Denies tingling and Denies weakness Psych Denies anxiety and Denies depression Endo Denies fatigue Aller/Immun Denies wheezing Physical exam (Primary Care) Vital Signs: Last Vital Signs Pulse 53 09/03/23 11:32 BP 128/80 09/03/23 11:32 Pulse Ox 97 09/03/23 11:32 Oxygen Delivery Method Room Air 09/03/23 11:32 BMI result Body Mass Index 38.0 Tobacco/Smoking Status: Tobacco use Status Tobacco use date assessed 09/03/23 09/03/23 11:40 Patient Tobacco Use Status Never used Tobacco 09/03/23 11:40 e-Cigarette/Vaping Use Never Used 09/03/23 11:40 Thrive Assessment: Date of Thrive Assessment Date Thrive assessed 04/16/23 09/03/23 11:40 Const General: well developed; No acute distress Nutritional Appearance: well nourished Orientation/consciousness: patient oriented x3 HENMT Head: Yes normocephalic and Yes atraumatic Eyes General: appearance normal, both eyes and all related structures Pupils: Equal, round and reactive pupils present EOM: EOMs intact bilaterally Resp Effort & Inspection: normal respiratory effort Neuro General: patient oriented x3 and gait normal Cranial nerves: Yes Equal, round and reactive pupils present Extrem Other: L hand pain at the first MCP joint Psych Affect: normal affect Assessment and Plan Assessment & Plan (1) High blood pressure: Code(s): I10 - Essential (primary) hypertension Plan: Blood?pressure?today?looks?okay?but?his?blood?pressures?have?been?high?and?his?log?shows?blood?pressures?consistently?high?at?home Start?lisinopril Continue?amlodipine (2) History of cardiac cath: Comment: 07/22/2023, left main normal, lad less than 30% stenosis, left circumflex and RCA minimal luminal irregularities Code(s): Z98.890 - Other specified postprocedural states Plan: Follow-up?with?Cardiology (3) Sprain of MCP joint of hand: Code(s): S63.659A - Sprain of metacarpophalangeal joint of unspecified finger, initial encounter Plan: Likely?strain?of?left?2nd?MCP?joint?but?concern?for?fracture?due?to?hyperextension And?significant?pain?and?swelling Check?x-ray Ice?and?NSAIDs Elevate?hand (4) Left hand pain: Code(s): M79.642 - Pain in left hand Plan: As?above Orders: Orders XR hand LT min 3V Today M79.642 - Pain in left hand Medications: New lisinopril 10 mg PO DAILY 90 days 90 tabs 3RF Coding Level of Care Code Est Pt Level 3 (78937) Diagnoses High blood pressure I10 History of cardiac cath Z98.890 Sprain of MCP joint of hand S63.659A Left hand pain M79.642
[2023-09-03 11:32] VITALS: BP 128/80; PULSE 53; O2SAT 97; BMI 38.0
== END 2023-09-03 12:22 | disposition home or self-care (01) ==
PROVIDERS: PCP Family Medicine; Visit Provider Family Medicine
DX: I10 Essential (primary) hypertension (principal); Z98.890 Other specified postprocedural states; S63.651A Sprain of metacarpophalangeal joint of left index finger, initial encounter; M79.642 Pain in left hand
CPT/HCPCS: 99214

== ENCOUNTER 2023-09-03 13:47 | Outpatient (REF) | payer MEDICARE, SELFPAY ==
--- NOTE | ~2023-09-03 | XR_ITS ---
EXAMINATION: XR HAND, LEFT CLINICAL INFORMATION: Patient states swelling and pain in left hand from hyperextending 2 weeks ago. COMPARISON: None available. TECHNIQUE: PA, lateral, and oblique views of the left hand. FINDINGS: Radiopaque marker placed by technologist to indicate the area of concern as indicated by the patient between the tips of the second and third digits. Abundant amorphous calcifications in the soft tissues along the radial aspect of the second metacarpophalangeal joint. Degenerative changes with hypertrophic change in the IP joint of the thumb with amorphous calcifications in the adjacent soft tissues. Moderate degenerative changes with joint space narrowing and hypertrophic change in multiple IP joints, most notable in the second and third digits. Ulnar-minus variance. Narrowing of the radiocarpal space with degenerative changes and subchondral sclerosis. Faint amorphous calcifications along the radial aspect of the scaphoid. Mild degenerative changes in the first carpometacarpal joint. XR/XR hand LT min 3V IMPRESSION: Degenerative changes in multiple joints with areas of soft tissue calcification as detailed above. This study was presented today September 08, 2023 for interpretation. Stat results provided at this time as requested by referring provider.
== END 2023-09-03 13:48 | disposition home or self-care (01) ==
LOC: HO.XRAY 13:47
PROVIDERS: PCP Family Medicine; Visit Provider Family Medicine
DX: M79.642 Pain in left hand (principal)
CPT/HCPCS: 73130

== ENCOUNTER 2023-11-23 09:27 | Outpatient (AMB) | payer MEDICARE, SELFPAY ==
--- NOTE | 2023-11-23 09:40 | A.OFFPC_ITS ---
Vital Signs 11/23/23 09:45 Height 5 ft 11 in Weight 297 lb 8 oz BMI 41.5 BP 143/68 H Blood Pressure Location Lt brachial Position Sitting Respiration 18 Pulse 54 Pulse Source Pulse Oximeter Temp 96.6 F L Temp Source Temporal Artery Scan Pulse Oximetry (%) 94 Oxygen Delivery Method Room Air Intake Visit Reasons: 3 month F/U hypertension Intake Note: foloow up for HTN Allergies topical bacitricin Allergy (Mild, Uncoded 09/03/23 11:34) rash Tobacco use date assessed: 09/03/23 Dental Screening Dental Screen Date: 06/11/23 HPI 3 month F/U hypertension HPI Details 78 y/o male presents to f/u hypertension . Had sent script for lisinopril. Pt had complaints of L hand pain/swelling last office visit 09/03/23. Blood pressure today 143/68, 54p. He is on lisinopril 10mg, amlodipine 10mg daily. He notes morning blood pressure in the 140s systolic range. Pt states afternoon blood pressures drop down to normal range. He feels he sleeps well. Denies any symptoms of sleep apnea. L hand x-ray showed some arthritis. Has complaints of L buttock pain that radiates down to back of his leg. He notes symptoms when sitting down. Hx of prostate cancer and pt states he is concerned about ? bone cancer. Pt notes post nasal drip. He notes flonase and cetirizine do not help. HPI Comments History of Present Illness Details Documentation assistance for Richmond Avelar MD, was provided by Harris Flynn,? Appliance Painter And Refinisher on 11/23/2023 at 10:10 AM EST. I, Dr. Avelar, have read, observed, and verified documentation. [facility] Medical History (Updated 11/23/23 @ 10:24 by Richmond Avelar MD) FH: cholecystectomy Arthritis of right ankle Prostate cancer High blood pressure Surgical History (Updated 08/06/23 @ 07:47 by Naida Lockett NP-Uday) History of cardiac cath History of bilateral knee replacement History of carpal tunnel surgery History of ankle surgery Family History Mother Cardiovascular disease Cancer Father High blood pressure Social History Household Members: Spouse Housing: Other Housing Other:: cottage Are you a primary resident caregiver to a significant other at home: Yes Do you presently have visiting nurse or other home services: No 75 years or older and lives alone: No Alcohol intake: current Patient Tobacco Use Status: Never used Tobacco e-Cigarette/Vaping Use: Never Used Special nikkie needs: Yes Special nikkie accommodation details: [employer] service: No Current occupational status: retired Cognitive needs: No Hearing needs: Yes Vision needs: Yes (patient wears glasses) Questionnaire Thrive Questionnaire Date Thrive assessed: 04/16/23 TRACE-7 AMB Questionnaire TRACE-7 Date TRACE - 7 assessed: 04/16/23 Source: Developed by Drs. Yusuf Perez, Kylah Wright, Tyler Paulson and colleagues, with an educational mamadou from [employer]. Review of Systems Const Denies chills, Denies fatigue, Denies fever(s), Denies headache(s) and Denies weakness ENT Denies dizziness, Denies headache(s) and Reports post nasal drip Card Denies dyspnea Resp Denies cough, Denies dyspnea, Denies wheezing and Denies other (shortness of breath) Musc Denies numbness and Denies tingling Neuro Denies dizziness, Denies headache(s), Denies numbness, Denies tingling and Denies weakness Psych Denies anxiety and Denies depression Endo Denies fatigue Aller/Immun Denies wheezing Physical exam (Primary Care) Vital Signs: Last Vital Signs Temp 96.6 F L 11/23/23 09:45 Pulse 54 11/23/23 09:45 Resp 18 11/23/23 09:45 BP 143/68 H 11/23/23 09:45 Pulse Ox 94 11/23/23 09:45 Oxygen Delivery Method Room Air 11/23/23 09:45 BMI result Body Mass Index 41.5 Tobacco/Smoking Status: Tobacco use Status Tobacco use date assessed 09/03/23 11/23/23 09:41 Patient Tobacco Use Status Never used Tobacco 11/23/23 09:41 e-Cigarette/Vaping Use Never Used 11/23/23 09:41 Thrive Assessment: Date of Thrive Assessment Date Thrive assessed 04/16/23 11/23/23 09:41 Const General: well developed; No acute distress Nutritional Appearance: well nourished Orientation/consciousness: patient oriented x3 [facility] Head: Yes normocephalic and Yes atraumatic Eyes General: appearance normal, both eyes and all related structures Pupils: Equal, round and reactive pupils present EOM: EOMs intact bilaterally Resp Effort & Inspection: normal respiratory effort Auscultation: clear to auscultation bilaterally Cardio Rate: regular rate Rhythm: regular rhythm Heart sounds: S1 normal heart sound present, S2 normal heart sound present, no gallops, no murmurs and no rubs Neuro General: patient oriented x3 and gait normal Cranial nerves: Yes Equal, round and reactive pupils present Psych Affect: normal affect Assessment and Plan Assessment & Plan (1) High blood pressure: Code(s): I10 - Essential (primary) hypertension Plan: Patient?says?his?blood?pressures?are?still?high?in?the?mornings?and?then?come?do w n?in?the?afternoon.??He?takes?both?of?his?blood?pressure?medications?in?the?morn ing. Will?have?him?try?taking?lisinopril?at?night?and?continue?amlodipine?in?the?morn ing He?will?let?me?know?if?blood?pressures?are?still?too?high (2) Left hand pain: Code(s): M79.642 - Pain in left hand Plan: This?has?resolved X-ray?shows?arthritic?changes (3) Pelvic pain: Code(s): R10.2 - Pelvic and perineal pain Plan: Pain?at?left?buttock?and?over?ischial?tuberosity?region History?of?prostate?cancer Will?rule?out?any?bony?neoplasm Region?of?pain?extends?down?left?hamstring?however?and?more? likely?this?is?a?recurrent?muscle?strain Start?physical?therapy Will?follow-up?in?a?month. Will?call?patient?if?action?is?required?based?on?x-ray?results. (4) Post-nasal drip: Code(s): R09.82 - Postnasal drip Plan: Trial?Azelastine He?has?already?tried?a?nasal?steroid Referred?to?ENT?and? if?not?improving?with?the?above?medication?he?will?keep?this?appointment Orders: Orders PT Evaluation and Treatment Today M79.18 - Myalgia, other site, S76.312A - Strain of muscle, fascia and tendon of the posterior muscle group at thigh level, left thigh, initial encounter XR pelvis min 3V Today R10.2 - Pelvic and perineal pain Referrals Ear/Nose/Throat Referral R09.82 - Postnasal drip Medications: New azelastine administer into each nostril 1 spray intranasal BID 30 days 30 mL 2RF Coding Level of Care Code Est Pt Level 4 (01052) Diagnoses High blood pressure I10 Left hand pain M79.642 Pelvic pain R10.2 Post-nasal drip R09.82
[2023-11-23 09:45] VITALS: BP 143/68; PULSE 54; RESP 18; TEMP 35.9; O2SAT 94; BMI 41.5
== END 2023-11-23 10:23 | disposition home or self-care (01) ==
PROVIDERS: PCP Family Medicine; Visit Provider Family Medicine
DX: I10 Essential (primary) hypertension (principal); M79.642 Pain in left hand; R10.2 Pelvic and perineal pain; R09.82 Postnasal drip
CPT/HCPCS: 99214

== ENCOUNTER 2023-12-21 09:27 | Outpatient (AMB) | payer MEDICARE, SELFPAY ==
--- NOTE | 2023-12-21 09:30 | A.OFFPC_ITS ---
Vital Signs 12/21/23 09:33 12/21/23 10:27 Height 5 ft 11 in Weight 299 lb 2 oz BMI 41.7 BP 132/76 138/72 Blood Pressure Location Lt brachial Lt brachial Position Sitting Sitting Pulse 43 L Pulse Source Pulse Oximeter Pulse Oximetry (%) 97 Oxygen Delivery Method Room Air Intake Visit Reasons: f/u buttock pain Intake Note: Patient is here to follow up on Buttock pain and Hamstring pain. Public Address Systems Mechanic Required: No Radio Division Officer: Not Required per policy Accompanied by: Self / Same As Patient Allergies topical bacitricin Allergy (Mild, Uncoded 12/21/23 09:32) rash Tobacco use date assessed: 12/21/23 Fall risk assessment: No Falls in past year Last assessed Fall Risk: 12/21/23 Dental Screening Dental Screen Date: 06/11/23 HPI f/u buttock pain HPI Details 78 y/o male presents to f/u L buttock an d hamstring pain. Checking x-ray. Does have hx of prostate cancer. Started him on PT as it seemed most consistent with recurrent buttock and hamstring pain. Had an x-ray at [facility]. I do not see results yet. Pt notes they had called him and told him they had seen degenerative changes of the hips. Pt notes L buttock pain has been improving. Pain worsens when he sits. Has an appt. with physical therapy today. Blood pressure today 132/76, 43p. [facility] Medical History (Updated 12/21/23 @ 10:08 by Harris Flynn) FH: cholecystectomy Arthritis of right ankle Prostate cancer High blood pressure Surgical History History of cardiac cath History of bilateral knee replacement History of carpal tunnel surgery History of ankle surgery Family History Mother Cardiovascular disease Cancer Father High blood pressure Social History Household Members: Spouse Housing: Other Housing Other:: cottage Are you a primary pet care attendant to a significant other at home: Yes Do you presently have visiting nurse or other home services: No 75 years or older and lives alone: No Alcohol intake: current Patient Tobacco Use Status: Never used Tobacco e-Cigarette/Vaping Use: Never Used Second Hand Smoke Exposure: No Special nikkie needs: Yes Special nikkie accommodation details: [facility] service: No Current occupational status: retired Cognitive needs: No Hearing needs: Yes Vision needs: Yes (patient wears glasses) Questionnaire Thrive Questionnaire Date Thrive assessed: 04/16/23 TRACE-7 AMB Questionnaire TRACE-7 Date TRACE - 7 assessed: 04/16/23 Source: Developed by Drs. Yusuf Perez, Kylah Wright, Tyler Paulson and colleagues, with an educational mamadou from [employer]. Review of Systems Const Denies chills, Denies fatigue, Denies fever(s), Denies headache(s) and Denies weakness ENT Denies dizziness and Denies headache(s) Card Denies dyspnea Resp Denies cough, Denies dyspnea, Denies wheezing and Denies other (shortness of breath) Musc Denies numbness and Denies tingling Neuro Denies dizziness, Denies headache(s), Denies numbness, Denies tingling and Denies weakness Psych Denies anxiety and Denies depression Endo Denies fatigue Aller/Immun Denies wheezing Physical exam (Primary Care) Vital Signs: Last Vital Signs Pulse 43 L 12/21/23 09:33 BP 132/76 12/21/23 09:33 Pulse Ox 97 12/21/23 09:33 Oxygen Delivery Method Room Air 12/21/23 09:33 BMI result Body Mass Index 41.7 Tobacco/Smoking Status: Tobacco use Status Tobacco use date assessed 12/21/23 12/21/23 09:40 Patient Tobacco Use Status Never used Tobacco 12/21/23 09:31 e-Cigarette/Vaping Use Never Used 12/21/23 09:31 Thrive Assessment: Date of Thrive Assessment Date Thrive assessed 04/16/23 12/21/23 09:31 Const General: well developed; No acute distress Nutritional Appearance: well nourished Orientation/consciousness: patient oriented x3 HENMT Head: Yes normocephalic and Yes atraumatic Eyes General: appearance normal, both eyes and all related structures Pupils: Equal, round and reactive pupils present EOM: EOMs intact bilaterally Resp Effort & Inspection: normal respiratory effort Auscultation: clear to auscultation bilaterally Cardio Rate: bradycardic Rhythm: regular rhythm Heart sounds: S1 normal heart sound present, S2 normal heart sound present, no gallops, no murmurs and no rubs Neuro General: patient oriented x3 and gait normal Cranial nerves: Yes Equal, round and reactive pupils present Psych Affect: normal affect Coding Level of Care Code Est Pt Level 3 (80086) Diagnoses High blood pressure I10 Bradycardia R00.1 Pain in left buttock M79.18 Strain of left hamstring S76.312A Parotid swelling R60.9 Assessment & Plan Assessment & Plan (1) High blood pressure: Code(s): I10 - Essential (primary) hypertension Category: Medical Plan: Blood?pressure?in?office?is?okay?but?patient?says?blood?pressures?at?home?are?ge tting?quite?high?at?times. Notes?systolic?blood?pressure?up?to?170?today. Will?increase?lisinopril (2) Bradycardia: Code(s): R00.1 - Bradycardia, unspecified Category: Medical Plan: History?of?abnormal?EKG?with?1st?AV?block?and?PVCs.??History?of?abnormal?nuclear ?stress?test?but?cardia c?catheterization?did?not?show?magda?coronary?artery?disease. He?has?an?upcoming?cardiac?MRI. 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 (3) Pain in left buttock: Code(s): M79.18 - Myalgia, other site Category: Medical Plan: X-ray?o f?pelvis?from?[facility]?shows?no?focal?lytic?lesions?but?degenerative?changes?melissa ateral?SI?joints?and?lumbar?spine?with?osteophytes.??Bilateral?hips?are?unremark able. Pain?seems?to?be?improving.??He?barnes s?upcoming?physical?therapy?and?I?encouraged?him?to?follow?through?on?this. Can?also?use?ice/heat (4) Strain of left hamstring: Code(s): S76.312A - Strain of muscle, fascia and tendon of the posterior muscle group at thigh level, left thigh, initial encounter Category: Medical Plan: As?above (5) Parotid swelling: Code(s): R60.9 - Edema, unspecified Category: Medical Plan: Likely?sialolith?but?can?not?rule?out?abnormal?lymph?node. Advised?warm?compresses,?increased?hydration?and?sour?candies. If?not?improving?or?worsens,?will?check?ultrasound. Orders: Orders AMB EKG-In Office Today R00.1 - Bradycardia, unspecified Medications: Changed From lisinopril 10 mg PO DAILY 90 days 90 tabs 3RF To lisinopril 20 mg PO DAILY 90 days 90 tabs 3RF
[2023-12-21 09:33] VITALS: BP 132/76; PULSE 43; O2SAT 97; BMI 41.7
[2023-12-21 10:27] VITALS: BP 138/72
== END 2023-12-21 10:32 | disposition home or self-care (01) ==
PROVIDERS: PCP Family Medicine; Visit Provider Family Medicine
DX: I10 Essential (primary) hypertension (principal); R00.1 Bradycardia, unspecified; M79.18 Myalgia, other site; S76.312A Strain of muscle, fascia and tendon of the posterior muscle group at thigh level, left thigh, initial encounter; R60.9 Edema, unspecified

== ENCOUNTER → 2023-12-21 09:27 | Outpatient (BNVA) | payer MEDICARE, SELFPAY | PROVIDERS: PCP Family Medicine; Visit Provider Family Medicine | DX: I10 Essential (primary) hypertension (principal); R00.1 Bradycardia, unspecified; M79.18 Myalgia, other site; R60.9 Edema, unspecified; S76.312A Strain of muscle, fascia and tendon of the posterior muscle group at thigh level, left thigh, initial encounter | CPT/HCPCS: 99212 ==

== ENCOUNTER 2024-02-03 09:38 | Outpatient (AMB) | payer MEDICARE, SELFPAY ==
--- NOTE | 2024-02-03 10:12 | A.OFFPC_ITS ---
Vital Signs 02/03/24 10:15 Height 5 ft 11 in Weight 303 lb 8 oz BMI 42.3 BP 130/60 Blood Pressure Location Rt brachial Position Sitting Respiration 16 Pulse 37 L Pulse Source Pulse Oximeter Temp 98.3 F Temp Source Oral Pulse Oximetry (%) 96 Oxygen Delivery Method Room Air Intake Visit Reasons: f/u bradycardia, htn, chronic conditions Intake Note: f/u HTN and bradycardia,chronic conditions Allergies topical bacitricin Allergy (Mild, Uncoded 02/03/24 10:12) rash Medication List - Last Reconciled 02/03/24 by Richmond Avelar MD abiraterone 1,000 mg PO DAILY amlodipine 10 mg (2 x 5 mg) PO DAILY 90 days aspirin (Adult Aspirin Regimen) 81 mg PO DAILY cetirizine 10 mg PO DAILY PRN cholecalciferol (vitamin D3) 50 mcg PO DAILY colchicine 0.6 mg PO DAILY PRN finasteride 5 mg PO DAILY fluticasone propionate 50 mcg/actuation (Flonase Allergy Relief) 1 spray intranasal Q12H 30 days lisinopril 20 mg PO DAILY 90 days potassium citrate ER 20 mEq PO TID prednisone 5 mg PO DAILY rosuvastatin 10 mg PO DAILY 90 days tamsulosin 0.4 mg PO DAILY Tobacco use date assessed: 12/21/23 Dental Screening Dental Screen Date: 06/11/23 HPI f/u bradycardia, htn, chronic conditions HPI Details 78 y/o male presents to f/u bradycardia, HTN, chronic conditions. Had increased lisinopril from 10mg daily to 20mg daily and continued amlodipine in evening. Had a cardiac MRI in late december for mild bradycardia. Cardiac MRI 01/12/24 shows LVEF 46%. LV size within normal limits. Wall thickness normal. RVEF 44%. Has an appt. with Cardiology today. Blood pressure today 130/60, 37p. He is on amlodipine 10mg, lisinopril 20mg daily. Denies any dizziness. Notes some dyspnea in the morning. Notes ongoing parotid gland swelling. X-ray [facility] pelvis from [facility] showed no focal lytic lesions but degenerative changes bilateral SI joints and lumbar spine with osteophytes. Notes pelvic pain seems to be improving with physical therapy. HPI Comments History of Present Illness Details Documentation assistance for Richmond Avelar MD, was provided by Harris Flynn, Scrubber Operator on 02/03/2024 at 10:46 AM EST. Grider, Dr. Avelar, have read, observed, and verified documentation. [facility] Medical History (Updated 02/03/24 @ 10:49 by Harris Flynn) FH: cholecystectomy Arthritis of right ankle Prostate cancer High blood pressure Surgical History History of cardiac cath History of bilateral knee replacement History of carpal tunnel surgery History of ankle surgery Family History Mother Cardiovascular disease Cancer Father High blood pressure Social History Household Members: Spouse Housing: Other Housing Other:: nelda Are you a primary child care provider to a significant other at home: Yes Do you presently have visiting nurse or other home services: No 75 years or older and lives alone: No Alcohol intake: current Patient Tobacco Use Status: Never used Tobacco e-Cigarette/Vaping Use: Never Used Second Hand Smoke Exposure: No Special nikkie needs: Yes Special nikkie accommodation details: [employer] service: No Current occupational status: retired Cognitive needs: No Hearing needs: Yes Vision needs: Yes (patient wears glasses) Questionnaire PHQ-9 Over the last 2 weeks, how often have you been bothered by any of the following problems? 1. Little interest or pleasure in doing things: not at all 2. Feeling down, depressed, or hopeless: not at all 3. Trouble falling or staying asleep, or sleeping too much: not at all 4. Feeling tired or having little energy: not at all 5. Poor appetite or overeating: not at all 6. Feeling bad about yourself - or that you are a failure or have let yourself or your family down: not at all 7. Trouble concentrating on things, such as reading the newspaper or watching television: not at all 8. Moving or speaking so slowly that other people could have noticed. Or the opposite - being so fidgety or restless that you have been moving around a lot more than usual: not at all 9. Thoughts that you would be better off or of hurting yourself in some way: not at all Total score: 0 Source: Developed by Drs. Yusuf Perez, Kylah Wright, Tyler Paulson and colleagues, with an educational mamadou from [employer]. Thrive Questionnaire Date Thrive assessed: 01/28/24 I am a: Patient What is your living situation today?: I have a steady place to live Within the past 12 months, did the food you bought not last and you didn't have the money to get more?: Never true Within the past 12 months, did you worry whether your food would run out before you got money to buy more?: Never true Do you have trouble paying for medicines?: No Do you have trouble getting transportation to medical appointments?: No Do you have trouble paying your heating and electricity bill?: No Do you have trouble taking care of your child, family member or friend?: I choose not to answer this question Do you have trouble with day-to-day activities such as bathing, preparing meals, shopping, managing finances, etc.?: No Are you currently unemployed and looking for a job?: No Are you interested in more education?: No Please select the resources that you would like help with: None Currently or been in a relationship where the following occur: No concerns reported THRIVE Score: 0 AUDIT C Alcohol Use Questionnaire (AUDIT-C) 1. How often do you have a drink containing alcohol?: 2-4 times a month 2. How many drinks containing alcohol do you have on a typical day when you are drinking?: 1 or 2 3. How often do you have six or more drinks on one occasion?: Never Total Score: 2 TRACE-7 AMB Questionnaire TRACE-7 Date TRACE - 7 assessed: 04/16/23 Feeling nervous, anxious, or on edge: 1 = Several days Not being able to stop or control worryin = Several days Worrying too much about different things: 1 = Several days Trouble relaxin = Several days Being so restless that it is hard to sit still: 0 = Not at all Becoming easily annoyed or irritable: 1 = Several days Feeling afraid as if something awful might happen: 0 = Not at all Total TRACE-7 score (0-4 normal; 5-9 mild; 10-14 moderate; 15-21 severe): 5 Source: Developed by Kylah Quispe Kurt Kroenke and colleagues, with an educational mamadou from [employer]. Review of Systems Const Denies chills, Denies fatigue, Denies fever(s), Denies headache(s) and Denies weakness ENT Denies dizziness and Denies headache(s) Card Denies dyspnea Resp Denies cough, Denies dyspnea, Denies wheezing and Denies other (shortness of breath) Musc Denies numbness and Denies tingling Neuro Denies dizziness, Denies headache(s), Denies numbness, Denies tingling and Denies weakness Psych Denies anxiety and Denies depression Endo Denies fatigue Aller/Immun Denies wheezing Physical exam (Primary Care) Vital Signs: Last Vital Signs Temp 98.3 F 02/03/24 10:15 Pulse 37 L 02/03/24 10:15 Resp 16 02/03/24 10:15 BP 130/60 02/03/24 10:15 Pulse Ox 96 02/03/24 10:15 Oxygen Delivery Method Room Air 02/03/24 10:15 BMI result Body Mass Index 42.3 Tobacco/Smoking Status: Tobacco use Status Tobacco use date assessed 12/21/23 02/03/24 10:18 Patient Tobacco Use Status Never used Tobacco 02/03/24 10:18 e-Cigarette/Vaping Use Never Used 02/03/24 10:18 PHQ-9: PHQ-9 Score PHQ-9: Total score 0 02/03/24 10:36 Thrive Assessment: Date of Thrive Assessment Date Thrive assessed 01/28/24 02/03/24 10:18 Currently or been in a relationship where the following occur: No concerns reported Const General: well developed; No acute distress Nutritional Appearance: well nourished and obese morbidly obese Orientation/consciousness: patient oriented x3 [facility] Head: Yes normocephalic and Yes atraumatic Eyes General: appearance normal, both eyes and all related structures Pupils: Equal, round and reactive pupils present EOM: EOMs intact bilaterally Resp Effort & Inspection: normal respiratory effort Auscultation: clear to auscultation bilaterally Cardio Rate: bradycardic Rhythm: regular rhythm Heart sounds: S1 normal heart sound present, S2 normal heart sound present, no gallops, no murmurs and no rubs Neuro General: patient oriented x3 and gait normal Cranial nerves: Yes Equal, round and reactive pupils present Psych Affect: normal affect Coding Level of Care Code Est Pt Level 4 (34028) Diagnoses Bradycardia R00.1 High blood pressure I10 Hyperlipidemia E78.5 Abnormal electrocardiography R94.31 Parotid swelling R60.9 Sleep apnea G47.30 Pelvic pain R10.2 Assessment & Plan Assessment & Plan (1) Bradycardia: Code(s): R00.1 - Bradycardia, unspecified Category: Medical Plan: Significant?bradycardia?and?mildly?symptomatic?as?patient?notes?that?he?is?fatig ued,?particularly?in?the?morning. His?cardiac?MRI?showed?a?decreased?EF?(46%) but?otherwise?unremarkable. His?Lexiscan showed?a?lower?EF?which?may?represent?that?he?has?improved?since?then?or?may?be? due?to?large?body?habitus?decreasing?the?accuracy?of?this?test Blood?pressure?currently?is?about?at?his?goal?of?less?than?130/80?however?he?not es?high?blood?pressure?in?the?mornings-see?below Encouraged?good?blood?pressure?control Encouraged?lipid?and?blood?sugar?control He?has?an?upcoming?appointment?with?cardiology?and?I?will?follow?along?regarding ?plan. (2) High blood pressure: Code(s): I10 - Essential (primary) hypertension Category: Medical Plan: Blood?pressure?appears?fairly?w ell?controlled?in?the?office?today?however?he?has?very?high?blood?pressures?in?t he?morning Also?large?body?habitus?and?likely?sleep?apnea I?am?referring?him?to?sleep?medicine?as?this?may?be?a?contribu ting?factor?to?his?above?cardiac?issues. (3) Hyperlipidemia: Code(s): E78.5 - Hyperlipidemia, unspecified Category: Medical Plan: Patient?was?started?on?rosuvastatin.??His?last?LDL?cholesterol?was?90.??Recommen ding?goal?of?less?than?70. Rechecking?this?and?hopefully?he?is?already?at?goal (4) Abnormal electrocardiography: Code(s): R94.31 - Abnormal electrocardiogram [ECG] [EKG] Category: Medical Plan: As?above (5) Parotid swelling: Code(s): R60.9 - Edema, unspecified Category: Medical Plan: Ongoing?parotid?swelling?at?right?parotid?gland Checking?ultrasound CBC?was?negative?recently?at?outside?lab.??Rechecking?this?as?well (6) Sleep apnea: Code(s): G47.30 - Sleep apnea, unspecified Category: Medical Plan: Referred?to?Sleep?Medicine (7) Pelvic pain: Code(s): R10.2 - Pelvic and perineal pain Category: Medical Plan: Right?buttock?and?pelvic?pain?and?this?has?improved?with?physical?therapy X- ray?was?unremarkable?except?for?some?degenerative?changes?particularly?at?bilate ral?SI?joints. Continue?exercises?learned?in?physical?therapy Orders: Orders Lipid Panel Today E78.5 - Hyperlipidemia, unspecified, Z00.00 - Encounter for general adult medical examination without abnormal findings US soft tiss head and/or neck Today R60.9 - Edema, unspecified Comprehensive [place]. Panel Fast Today E78.5 - Hyperlipidemia, unspecified, Z00.00 - Encounter for general adult medical examination without abnormal findings Complete Blood Count Auto Diff Today R60.9 - Edema, unspecified, Z00.00 - Encounter for general adult medical examination without abnormal findings Referrals Sleep Medicine Referral G47.30 - Sleep apnea, unspecified, I10 - Essential (primary) hypertension, R00.1 - Bradycardia, unspecified, R94.31 - Abnormal electrocardiogram [ECG] [EKG], R94.39 - Abnormal result of other cardiovascular function study
[2024-02-03 10:15] VITALS: BP 130/60; PULSE 37; RESP 16; TEMP 36.8; O2SAT 96; BMI 42.3
== END 2024-02-03 11:14 | disposition home or self-care (01) ==
PROVIDERS: PCP Family Medicine; Visit Provider Family Medicine
DX: R00.1 Bradycardia, unspecified (principal); I10 Essential (primary) hypertension; E78.5 Hyperlipidemia, unspecified; R94.31 Abnormal electrocardiogram [ECG] [EKG]; R60.9 Edema, unspecified; G47.30 Sleep apnea, unspecified; R10.2 Pelvic and perineal pain

== ENCOUNTER → 2024-02-03 09:38 | Outpatient (BNVA) | payer MEDICARE, SELFPAY | PROVIDERS: PCP Family Medicine; Visit Provider Family Medicine | DX: R94.31 Abnormal electrocardiogram [ECG] [EKG] (principal); I49.3 Ventricular premature depolarization; Z98.890 Other specified postprocedural states; R00.1 Bradycardia, unspecified; E78.5 Hyperlipidemia, unspecified; R60.9 Edema, unspecified; G47.30 Sleep apnea, unspecified; R10.2 Pelvic and perineal pain | CPT/HCPCS: 93005; 99212 ==

== ENCOUNTER 2024-02-03 14:23 | Outpatient (AMB) | payer MEDICARE, SELFPAY ==
[2024-02-03 15:06] VITALS: BP 134/52; PULSE 63; BMI 42.4
--- NOTE | 2024-02-03 15:06 | MHC.OFFVIS ---
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 Allergies topical bacitricin Allergy (Mild, Uncoded 02/03/24 15:08) rash Medication List - Last Reconciled 02/03/24 by Naida Lockett, SHABNAM-C abiraterone 1,000 mg PO DAILY amlodipine 10 mg (2 x 5 mg) PO DAILY 90 days aspirin (Adult Aspirin Regimen) 81 mg PO DAILY cetirizine 10 mg PO DAILY PRN cholecalciferol (vitamin D3) 50 mcg PO DAILY colchicine 0.6 mg PO DAILY PRN finasteride 5 mg PO DAILY fluticasone propionate 50 mcg/actuation (Flonase Allergy Relief) 1 spray intranasal Q12H 30 days lisinopril 20 mg PO DAILY 90 days potassium citrate ER 20 mEq PO TID prednisone 5 mg PO DAILY rosuvastatin 10 mg PO DAILY 90 days tamsulosin 0.4 mg PO DAILY HPI HPI F?U after testing: Details: Karmen is a 78-year-old male with past medical history of hypertension, hyperlipidemia, obesity with newer finding of frequent PVCs, nonobstructive coronary artery disease who recently had a cardiac MRI and now presents for follow-up. Today he reports he continues to feel well with no concerning symptoms. Denies any chest discomfort at rest or with activity. No heart palpitations, lightheadedness, presyncope, syncope, falls. Mild shortness of breath with exertion which is not new. No shortness of breath at rest, PND, orthopnea or edema. He ambulates with a cane due to an old fracture of the right ankle. Tolerates normal ADLs without symptoms. Takes all meds as directed. [facility] Medical History FH: cholecystectomy Arthritis of right ankle Prostate cancer High blood pressure Surgical History History of cardiac cath History of bilateral knee replacement History of carpal tunnel surgery History of ankle surgery Family History Mother Cardiovascular disease Cancer Father High blood pressure Social History Household Members: Spouse Housing: Other Housing Other:: nelda Are you a primary respiratory care practitioner to a significant other at home: Yes Do you presently have visiting nurse or other home services: No 75 years or older and lives alone: No Alcohol intake: current Patient Tobacco Use Status: Never used Tobacco e-Cigarette/Vaping Use: Never Used Second Hand Smoke Exposure: No Special nikkie needs: Yes Special nikkie accommodation details: [employer] service: No Current occupational status: retired Cognitive needs: No Hearing needs: Yes Vision needs: Yes (patient wears glasses) Review of Systems Const All systems reviewed & are unremarkable except as noted in HPI and below ENT Denies dizziness Card Denies chest pain, Denies chest pain at rest, Denies chest pain with activity, Denies rapid heart rate, Denies pedal edema, Denies edema, Denies leg edema, Denies lightheadedness, Denies palpitations, Denies dyspnea, Denies dyspnea on exertion and Denies orthopnea Resp Denies cough, Denies dyspnea and Denies dyspnea on exertion GI Denies hematochezia and Denies change in stool character Musc Denies abnormal gait, Denies limited range of motion, Denies muscle cramps, Denies muscle weakness, Denies numbness, Denies radiating pain into limb, Denies stiffness and Denies tingling Neuro Denies abnormal gait, Denies dizziness, Denies numbness and Denies tingling Endo Denies palpitations Physical Exam Vital Signs: Last Vital Signs Pulse 63 02/03/24 15:06 BP 134/52 L 02/03/24 15:06 BMI result Body Mass Index 42.4 Const General: cooperative, healthy appearing, comfortable and no acute distress Orientation/consciousness: patient oriented x3 Neck Neck: Yes normal visual inspection Resp Effort & Inspection: normal respiratory effort Auscultation: clear to auscultation bilaterally, no crackles, no rales, no rhonchi and no wheezes Cardio Jugular venous distension: no JVD Rate: regular rate Rhythm: regular rhythm Heart sounds: S1 normal heart sound present, S2 normal heart sound present, no murmurs and no rubs Neuro General: patient oriented x3 Extrem Other: Right radial catheterization site well healed, easily palpable radial pulse, right hand assessment normal General: Yes normal to inspection and No no pedal edema Psych Appearance: grossly normal Mental Status: mental status grossly normal Speech and movement: Normal speech and movement present Office Procedures EKG Details: Today, read by me, sinus rhythm with first-degree AV block, right bundle branch block, frequent PVCs in bigeminy pattern, inferior infarct, rate 63, QTC 446 milliseconds [id number], Complete Assessment & Plan Assessment & Plan (1) Abnormal electrocardiography: Code(s): R94.31 - Abnormal electrocardiogram [ECG] [EKG] Category: Medical Plan: Recent Cardiac evaluation for EKG showing inferior infarct and PVCs. No prior known history of CAD or [place]. he underwent an echocardiogram on 05/05/2023 showing EF 55-60%, normal valves, no regional wall motion abnormality. Nuclear stress test was done on 06/23/2023 showing probable inferior infarct, can not exclude diaphragm attenuation artifact. A Holter monitor was done on 05/05/2023 showing sinus rhythm with average heart rate 65, heart rate range 41 to 91, frequent PVCs, 29% with short runs, longest 13 beats. He then underwent cardiac catheterization on 07/22/2023 showing mild nonobstructive LAD stenosis. Due to his very frequent PVCs he underwent a cardiac MRI at [facility] which showed EF 46%, left atrial dilation, no definite late gadolinium enhancement, ascending aorta 44 mm in diameter. Test results reviewed with him in detail. His frequent PVCs may now be starting to drop his ejection fraction. Will update an echocardiogram and compare to the last done in April. EKG done today shows sinus rhythm with first-degree AV block, ventricular bigeminy, rate 63. When using a sat monitor his pulse only shows the sinus beats and gives a heart rate in the 30s which is a false reading. Case discussed with Dr. Ambrosio. Will start him on metoprolol to help suppress PVCs. Will send metoprolol tartrate 25 mg b.i.d. to his pharmacy. Reason for this medication discussed with him. Will arrange for an office EKG in 1 week. Plan to call him with echo results. Reviewed the ongoing reduction in caffeinated beverages, stimulants. Cardiology follow-up 3 months, sooner if needed. Emergency care if ever needed for concerning symptoms. (2) PVC (premature ventricular contraction): Code(s): I49.3 - Ventricular premature depolarization Category: Medical Plan: Frequent PVCs as above. Not related to his coronary artery disease or cardiac scar or abnormal muscle tissue. Unknown if he has sleep apnea. Based on PCP note he has been referred to sleep medicine already. (3) History of cardiac cath: Comment: 07/22/2023, left main normal, lad less than 30% stenosis, left circumflex and RCA minimal luminal irregularities Code(s): Z98.890 - Other specified postprocedural states Category: Surgical Plan: As above Plan Time spent on chart review, documentation, interview assessment Orders: Orders CA echo transthoracic complete 02/03/24 I49.3 - Ventricular premature depolarization, R94.31 - Abnormal electrocardiogram [ECG] [EKG] Medications: New metoprolol tartrate 25 mg PO BID 60 tabs 3RF Coding Level of Care Code Est Pt Level 4 (08369) Complex EM visit Add On G2211 Diagnoses Abnormal electrocardiography R94.31 PVC (premature ventricular contraction) I49.3 History of cardiac cath Z98.890 CPT Codes EKG - CPT: [id number], Complete ([id number]) Time Spent (min) 32
== END 2024-02-03 15:49 | disposition home or self-care (01) ==
PROVIDERS: PCP Family Medicine; Visit Provider Nurse Practitioner Family
DX: R94.31 Abnormal electrocardiogram [ECG] [EKG] (principal); I49.3 Ventricular premature depolarization; Z98.890 Other specified postprocedural states
CPT/HCPCS: 93010; 99214; G2211

== ENCOUNTER 2024-02-07 09:43 | Outpatient (REF) | payer MEDICARE, SELFPAY ==
[2024-02-07 11:28] LABS: MANUAL DIFF FLAG NO
[2024-02-07 11:57] LABS: Basophils Percent Auto 0.3 % (0-2); Eosinophils Absolute Auto 0.2 X10*3/uL (0.0-0.4); Eosinophils Percent Auto 3.4 % (0-4); Hematocrit 41.2 % (42.0-52.0); Hemoglobin 12.9 g/dl (14.0-18.0); Imm Gran Abs Auto 0.02 X10*3/uL (0.00-0.03); Imm Gran Pct Auto 0.3 % (0.0-0.4); Lymphocytes Absolute Auto 1.1 X10*3/uL (1.2-4.9); Lymphocytes Percent Auto 18.1 % (20-40); Mean Corpuscular HGB Conc 31.3 g/dl (31.0-36.0); Mean Corpuscular Hemoglobin 26.7 pg (27.0-33.0); Mean Corpuscular Volume 85.1 fL (80.0-98.0); Monocytes Absolute Auto 0.8 X10*3/uL (0.1-1.2); Monocytes Percent Auto 13.3 % (2-11); Neutrophils Absolute Auto 3.8 x10*3/uL (2.0-8.3); Neutrophils Percent Auto 64.6 % (45-73); Platelet Count 175 X10*3/uL (160-400); Red Blood Count 4.84 X10*6/uL (4.60-5.80); Red Cell Distribution Width 16.2 % (11.0-16.0); White Blood Count 5.9 X10*3/uL (4.8-10.8)
[2024-02-07 12:28] LABS: Alanine Aminotransferase < 6 U/L (0-40); Albumin Level 3.5 g/dL (3.5-5.0); Alkaline Phosphatase 48 U/L (39-117); Anion Gap 12 (12-20); Aspartate Amino Transferase 17 U/L (5-37); Bilirubin Total 0.7 mg/dL (0.0-1.0); Blood Urea Nitrogen 28 mg/dL (9-16); Calcium 8.9 mg/dL (8.4-10.2); Carbon Dioxide 30 mmol/L (22-29); Chloride 108 mmol/L (96-108); Cholesterol 117 mg/dL (<200); Estimated Glomerular Filt Rate 54; Glucose Fasting 96 mg/dL (60-99); HDL Cholesterol 51 mg/dL (>40); LDL Cholesterol Calculated 54 mg/dL (<100); Potassium 4.5 mmol/L (3.3-5.1); Sodium 145 mmol/L (135-145); Triglycerides 64 mg/dL (<150)
== END 2024-02-07 09:44 | disposition home or self-care (01) ==
LOC: HO.WFDLDS 09:43
PROVIDERS: Visit Provider Family Medicine
DX: Z00.00 Encounter for general adult medical examination without abnormal findings (principal); E78.5 Hyperlipidemia, unspecified; R60.9 Edema, unspecified
CPT/HCPCS: 36415; 80053; 80061; 85025

== ENCOUNTER 2024-02-09 08:46 | Outpatient (AMB) | payer MEDICARE, SELFPAY ==
[2024-02-09 08:54] VITALS: BP 142/80; PULSE 54; O2SAT 97; BMI 42.3
--- NOTE | 2024-02-09 08:54 | A.OFFVIS_ITS ---
Vital Signs 02/09/24 08:54 Height 5 ft 11 in Weight 303 lb BMI 42.3 BP 142/80 H Blood Pressure Location Rt brachial Position Sitting Pulse 54 Pulse Source Pulse Oximeter Pulse Oximetry (%) 97 Oxygen Delivery Method Room Air Intake Visit Reasons: INP-GONZALEZ Waiter/Waitress First Class Required: No Accompanied by: Self / Same As Patient Allergies topical bacitricin Allergy (Mild, Uncoded 02/03/24 15:08) rash Medication List - Last Reconciled 02/09/24 by DASH Rodriguez abiraterone 1,000 mg PO DAILY amlodipine 10 mg (2 x 5 mg) PO DAILY 90 days aspirin (Adult Aspirin Regimen) 81 mg PO DAILY cetirizine 10 mg PO DAILY PRN cholecalciferol (vitamin D3) 50 mcg PO DAILY colchicine 0.6 mg PO DAILY PRN finasteride 5 mg PO DAILY fluticasone propionate 50 mcg/actuation (Flonase Allergy Relief) 1 spray intranasal Q12H 30 days lisinopril 20 mg PO DAILY 90 days metoprolol tartrate 25 mg PO BID potassium citrate ER 20 mEq PO TID prednisone 5 mg PO DAILY rosuvastatin 10 mg PO DAILY 90 days tamsulosin 0.4 mg PO DAILY Do you need a note to return to daycare/school/sports/work: No HPI Comments Details: 78-yr-old male presents for new in-person patient visit for sleep consultation to [facility] for possible sleep apnea in setting of fatigue, morning fatigue, bradycardia, hypertension, reduced LV EF 46% on cardiac MRI. Pt notes he was recently started on metoprolol in hopes of improving his EF. He has noticed decreased BP, lower HR, but denies lightheadedness. He notes h/o sleep issues, gasping arousals at times, nocturia, and that when he had his knee replacement, he was tried on PAP tx but did not tolerate it. Sleep history questionnaire: Have you ever been diagnosed with a sleep disorder? No Have you ever had a sleep study in the past? No Have you ever been treated for a sleep disorder? states when he had his knee replacement, he was tried on PAP tx but did not tolerate it. Do you take medications/supplements for a sleep disorder? No Current sleep symptom questionnaire: Pt reports daytime sleepiness, fatigue, falls asleep within 30 seconds when he goes to bed- he attributes to his joints and life issues- is in rehab. Pt reports snoring, nocturnal gasping. Patient reports he has been having episo mackenzie of waking up gasping every few days. Pt reports nocturnal dry mouth. Pt reports nocturia- 3-5 x's per night and easily goes back to sleep. Pt reports nocturnal leg cramps- in the ankles, restless leg symptoms of urge to move, restlessness which starts around evening time. Pt reports ruminating thoughts at times- r/t his 's care at rehab. Pt denies family h/o similar sleep s/s. Sleep hygiene questionnaire: Occupation status: Retired Usual bedtime is at 8:30-9pm Usual time to fall asleep w/in 30 seconds Usual wake-up time 5am Usual out of bed time is at 7:30am Naps: Does not take naps Sleep environment: comfortable, quiet Electronic use in bedroom: TV Exercise: walking, housework Caffeine or other stimulants: drinking more tea than coffee- Usually 1 cup of tea or coffee per day. But sttaes can drink a pepsi later w/o difficulty sleeping. [facility] Medical History (Updated 02/09/24 @ 09:54 by DASH Rodriguez) FH: cholecystectomy Arthritis of right ankle Prostate cancer High blood pressure Surgical History History of cardiac cath History of bilateral knee replacement History of carpal tunnel surgery History of ankle surgery Family History Mother Cardiovascular disease Cancer Father High blood pressure Social History Household Members: Spouse Housing: Other Housing Other:: nelda Are you a primary home care liaison to a significant other at home: Yes Do you presently have visiting nurse or other home services: No 75 years or older and lives alone: No Alcohol intake: current Patient Tobacco Use Status: Never used Tobacco e-Cigarette/Vaping Use: Never Used Second Hand Smoke Exposure: No Special nikkie needs: Yes Special nikkie accommodation details: [facility] service: No Current occupational status: retired Cognitive needs: No Hearing needs: Yes Vision needs: Yes (patient wears glasses) Physical Exam Vital Signs: Last Vital Signs Pulse 54 02/09/24 08:54 BP 142/80 H 02/09/24 08:54 Pulse Ox 97 02/09/24 08:54 Oxygen Delivery Method Room Air 02/09/24 08:54 BMI result Body Mass Index 42.3 Const General: no acute distress Nutritional Appearance: obese Orientation/consciousness: patient oriented x3 Limitations: ambulation with walker HEENT Other: Mallampati stage 4 Resp Effort & Inspection: normal respiratory effort and able to speak in complete sentences Cardio Rate: bradycardic Rhythm: regular rhythm Neuro General: patient oriented x3 and moves all extremities Psych Mental Status: mental status grossly normal Speech and movement: Clear speech present Attitude: cooperative Assessment & Plan Assessment & Plan (1) Snoring: Code(s): R06.83 - Snoring Category: Medical (2) Hypersomnia: Code(s): G47.10 - Hypersomnia, unspecified Category: Medical (3) Abnormal electrocardiography: Code(s): R94.31 - Abnormal electrocardiogram [ECG] [EKG] Category: Medical (4) Abnormal nuclear stress test: Code(s): R94.39 - Abnormal result of other cardiovascular function study Category: Medical (5) Nocturia: Code(s): R35.1 - Nocturia Category: Medical Plan Pt is advised to undergo in-lab PSG sleep study to assess for sleep apnea and PLMS however pt cannot commit to this at this time d/t his 's health status, thus pt advised to undergo HST to assess for sleep apnea. Upon review of sleep study results, will f/u with pt to discuss results and appropriate treatment options. Reviewed that Metoprolol may induce bradycardia, HR today is 54. Pt does monitor BP at home. Monitor for HR low HR < 50, lightheadeness. Monitor RLS clinically for now, as s/s are not overly bothersome. Though did reviewed simple strategies to improve RLS s/s- weighted blanket, OTC topical tx's, movement. Pt seen in c/w Dr Bambi Main Will follow-up upon review of above and patient to follow-up in clinic in 6 months or sooner prn. Orders: Orders RT home sleep study Today G47.10 - Hypersomnia, unspecified, R06.83 - Snoring, R35.1 - Nocturia, R94.31 - Abnormal electrocardiogram [ECG] [EKG], R94.39 - Abnormal result of other cardiovascular function study Coding Level of Care Code New Pt Level 4 (09690) Diagnoses Snoring R06.83 Hypersomnia G47.10 Abnormal electrocardiography R94.31 Abnormal nuclear stress test R94.39 Nocturia R35.1
== END 2024-02-09 09:45 | disposition home or self-care (01) ==
PROVIDERS: PCP Family Medicine; Visit Provider Nurse Practitioner Family
DX: R06.83 Snoring (principal); G47.10 Hypersomnia, unspecified; R94.31 Abnormal electrocardiogram [ECG] [EKG]; R94.39 Abnormal result of other cardiovascular function study; R35.1 Nocturia
CPT/HCPCS: 99204

== ENCOUNTER → 2024-02-09 08:46 | Outpatient (BNVA) | payer MEDICARE, SELFPAY | PROVIDERS: PCP Family Medicine; Visit Provider Nurse Practitioner Family | DX: R06.83 Snoring (principal); G47.10 Hypersomnia, unspecified; R94.31 Abnormal electrocardiogram [ECG] [EKG]; R94.39 Abnormal result of other cardiovascular function study; R35.1 Nocturia | CPT/HCPCS: 99202 ==

== ENCOUNTER 2024-02-11 09:00 | Outpatient (RCR) | payer MEDICARE, SELFPAY ==
[2023-12-21 12:59] VITALS: BP 132/64; PULSE 60; O2SAT 95
--- NOTE | 2023-12-21 15:37 | MHC.PT.EP ---
[facility] [place] Office [place] Office [place] Office [address] Josue Talbert [address] [phone] F: [phone] F: [phone] F: [phone] F: [phone] Physical Therapy Plan of Care Date of Evaluation: 12/21/23 Date of Surgery: Diagnosis: M79.18 Myalgia other site, S76. 312A S76. 312A Strain of muscle, fascia, and tendon of the posterior muscle group, at thigh level, left thigh, initial encounter, pain in left buttock, strain of left hamstring signed by Richmond Avelar date of script 11/23/23 Assessment: Pt is a RHD 78 y/o male with PMH significant for R fused ankle, hx bradycardia, hx HTN, current active prostate CA (on oral medication and injection every 4 weeks ) and obesity. Pt exhibits tightness of the L>R hamstring, obesity, global deconditioning and report of radiating pain down the L glute/HS region (+) TTP ischial tuberosity. Pt expresses L>R sided back pain at height L3-L5. Pt would benefit from a gentle lumbar/hip stabilization program with monitoring vital signs *hx bradycardia awaiting cardaic open MRI in January. Pt ambulating with std cane (wearing hinged ankle brace due to history of fusion). Pt will benefit from PT, pt agreeable to booking PT once a week x 4-6 weeks to address impairments, implement HEP, and patient education/selfcare. He was educated re: goal of centralization, stopping any activity which causes worsening or radiating pain. He was educated re: body mechanics for bending and reaching (golfer's lift, extending one leg behind the other to ease back pain). Pt Pt reports stressors at home impacting mental health- became tearful telling story of ill who is in a shelter has Parkinson>bone infection, was previously living home with him in October 2023 (was previously assisting her in personal care/movement). Pt attributes potential onset of back pain/LE sx with helping her prior to her hospitalization>rehab transition. Post initial evaluation he was educated re: gentle HS stretching, use of MHP to ease back pain with appropriate layering, LBTR for gentle mobility, posterior pelvic tilts, encouragement to DC use of wallet when sitting, and education to ease transition into standing. Pt expressed positive response post education/evaluation intake. Frequency and Duration: The patient will be seen 1-2x/week x 4 weeks Short Term Goals: 1. Sit for greater than five minutes without radiating sx in the proximal L hip. 2. Pt will demonstrate core/pelvic tilt strength to neutral to 4/5. 3. Pt will demonstrate L HS length by 25%. V Belt Curer Goals: 1. Pt will demonstrate strength hip abductors to L 4/5 completed bilaterally. 2. Pt will demonstrate strength hip extensors to L 4+/5 completed bilaterally. 3. Pt will demonstrate bridge with good symmetry. 4. Ascend/descend 6 inch step with good dynamic balance. 5. Drive/sit >20 minutes without presence of radiating L gluteal sx. 6. I HEP/self care/body mechanics. Treatment Plan: Modalities to reduce pain, spasms and effusion. Manual therapy to restore motion and function. Therapeutic exercise to improve strength and flexibility. Neuromuscular re-education for posture and balance. Therapeutic activities to return to functional activities of daily living. Electronically signed by: Kennedi Fong, PT, DPT Please sign and return to therapist. Thank you for your referral.
== END 2024-04-18 08:27 | disposition home or self-care (01) ==
LOC: HO.PTWFD 09:00
PROVIDERS: PCP Family Medicine; Visit Provider Family Medicine
DX: M79.18 Myalgia, other site (principal); S76.312D Strain of muscle, fascia and tendon of the posterior muscle group at thigh level, left thigh, subsequent encounter
CPT/HCPCS: 97110; 97140; 97163; 97535

== ENCOUNTER → 2024-02-14 14:18 | Outpatient (BNVA) | payer MEDICARE, SELFPAY | PROVIDERS: PCP Family Medicine; Visit Provider Nurse Practitioner Family ==

== ENCOUNTER → 2024-02-29 13:30 | Outpatient (REF) | payer MEDICARE, SELFPAY ==
--- NOTE | 2024-02-29 13:33 | CA_ITS ---
Transthoracic Echocardiogram Patient (Last, First, Middle): Karmen Jackson V Gender: Male Date of : 1945 Age: 78 Procedure Date: 02/29/2024 Procedure Type: Transthoracic Echocardiogram Location: OP Height: 180. cm Weight: 135.63 kg BSA: 2.50 m2 Heart Rate: 39 bpm BP: 130 / 65 mmHg Orthotic Practitioner: MELANIE Chow MD: Naida Lockett SEAL DELIVERY VEHICLE TEAM TECHNICIAN-C Geophysical Engineer: Kishor Snow MD Symptoms: I49.3 - Ventricular premature depolarization Study Quality: Fair ECG Rhythm: Sinus with extra beats Conclusions: - 1. Normal LV ejection fraction 55-60% with mild LVH with impaired relaxation filling pattern 2. At least mildly dilated left atrium 3. Calcific aortic valve changes noted with increased gradient suggestive of early mild aortic stenosis 4. Moderately dilated ascending aorta at 4.6 cm 5. Normal RV systolic pressure 6. No gross pericardial effusion Findings Left Ventricle Normal left ventricular size and systolic function. There is mildly increased left ventricular wall thickness. The visually estimated ejection fraction is between 55-60%. Spectral Doppler is indicative of an impaired relaxation filling pattern. E/E prime ratio is between 8 and 15 consistent with indeterminate filling pressures. Right Ventricle Normal right ventricular cavity size and systolic function. Atria The left atrium is mildly dilated. Interatrial shunt cannot be excluded. The right atrium is likely dilated. Aortic Valve There is mild calcification of the aortic valve. There is moderate thickening of the aortic valve. There is no aortic valve stenosis. The peak aortic velocity is 1.81 m/s with a calculated peak gradient of 13 mmHg. The mean gradient is 8 mmHg. There is no aortic valve regurgitation. Mitral Valve There is mild anterior and posterior mitral leaflet thickening. There is trace mitral valve regurgitation. There is no mitral valve stenosis. Tricuspid Valve Likely normal tricuspid valve structure and function. There is trace tricuspid valve regurgitation. The right ventricular systolic pressure is normal. The right ventricular systolic pressure is 21 mmHg. Normal right atrial pressure. There is no evidence of pulmonary hypertension. Great Vessels The pulmonary artery was not well visualized. There is moderate dilatation of the ascending aorta measuring 4.60 cm. Small plaque is seen in the sino tubular ridge. Venous The inferior vena cava is normal in size and collapses greater than 50% with inspiration. Pericardium/Pleural There is no evidence of pericardial effusion. Prior Study Comparison Changes noted compared to prior study dated: 05/05/2023. ascending aorta as further dilated at 4.6 cm. Consider chest CTA Measurements 2D Linear Measurements IVSd: 1.42 0.6-0.9/0.6-1.0 cm LVIDd: 5.25 3.9-5.3/4.2-5.9 cm LVIDd Index: 2.10 2.4-3.2/2.2-3.1 cm/m2 LVIDs: 4.01 2.0-3.6 cm LVPWd: 1.29 0.7-1.1 cm LA Diam: 5.20 2.7-3.8/3.0-4.0 cm LAIDs Index: 2.08 1.5-2.3 cm/m2 LV Mass: 374.04 67-162/88-224 g LV Mass Index: 149.62 43-95/49-115 g/m2 LVOT Diam: 2.40 3.0+(-)1.3 cm 2D Systolic Function EF 4C: 54.60 >55% EF 2C: 55.60 >55% EF BiP: 55.00 >55% Mitral Valve MV Pk E: 0.80 MV PK A: 0.74 MV Decel Time: 222.00 E/A: 1.10 E'Lateral: 6.20 E'Medial: 4.14 E/E' Med: 19.30 E/E' Lat: 12.90 PHT: 65.00 MVA PHT: 3.38 Decel Vermillion: 3.60 Aortic Valve AoV Pk Gabe: 1.81 AoV Mn Gabe: 1.32 AoV VTI: 0.47 AoV Pk Grad: 13.00 Aov Mn Grad: 8.00 PATRICIA Cont.VTI: 2.61 LVOT LVOT Pk Gabe: 1.07 LVOT Mn Gabe: 0.77 LVOT VTI: 0.27 LVOT Pk Grad: 5.00 LVOT Mn Grad: 3.00 LVOT Diam: 2.40 LVOT Area: 4.52 Diastolic Function MV Pk E: 0.80 MV Pk A: 0.74 E/A: 1.10 E'Medial: 4.14 E/E' Med: 19.30 E' Laterial: 6.20 E/E' Lat: 12.90 Right Ventricle TAPSE (mm): 25.30 Tricuspid Valve TR Pk Gabe: 2.15 TR Pk Grad: 18.00 RA Press: 3.00 RVSP: 21.00 Great Vessels Aorta Sinus of Valsalva: 3.70 2.0-3.5 cm Ao Asc: 4.60 2.1-3.4 cm Ao Arch: 3.40 Pulmonary Valve PV Pk Gabe: 1.38 Peak PV Grad: 8.00 Updated in Other Vendor System with Status of Final Kishor Snow MD electronically signed on 03/01/2024 5:29:01 PM with status of Final
--- OUTSIDE RECORDS SUMMARY | 2024-03-01 21:40 | XMS_ITS ---
Author Name [facility] Organization [facility] Results Test Name/Text Value Interpretation Date Range Source eGFR 56mL/min Below low normal [id number] - [facility] eGFR Afri-Amer 60mL/min Normal [id number] - [facility] Creatinine 1.24mg/dL Normal [id number] 0.7 - 1.3 [facility] H BUN 30mg/dL Above high normal [id number] 7 - 21 [facility]
== END ==
LOC: HO.CARD 13:30
PROVIDERS: Absent Provider Family Medicine; PCP Family Medicine; Visit Provider Nurse Practitioner Family
DX: R00.1 Bradycardia, unspecified (principal); I49.3 Ventricular premature depolarization; R94.31 Abnormal electrocardiogram [ECG] [EKG]; R60.9 Edema, unspecified
CPT/HCPCS: 76536; 93242; 93306

== ENCOUNTER → 2024-02-29 13:33 | Outpatient (BNV) | payer MEDICARE, SELFPAY | PROVIDERS: Absent Provider Family Medicine; PCP Family Medicine; Visit Provider Internal Medicine Cardiovascular Disease | DX: I35.0 Nonrheumatic aortic (valve) stenosis (principal) | CPT/HCPCS: 93306 ==

== ENCOUNTER → 2024-04-20 15:18 | Outpatient (REF) | payer MEDICARE, SELFPAY ==
--- OUTSIDE RECORDS SUMMARY | 2024-04-20 19:06 | XMS_ITS | Encounter Summary ---
Author Organization [facility] Address [address] [place] [address] Care Team Providers Care Mining Engineering Technologist Name Role Phone Bill Weiss MD Primary Care Provider [phone] Encounter Details Date Type Department Care Team (Late st Contact Info) Description 03/12/2020 Lab Requisition [place] COVID-[address] [id number] Yusuf Carson MD [address] [place], [place] [id number] Encounter for laboratory testing for COVID-19 virus Social History Tobacco Use Types Packs/Day Years Used Date Smoking Tobacco: Never Assessed Sex and Gender Information Value Date Recorded Sex Assigned at Not on file Gender Identity Not on file Sexual Orientation Not on file COVID-19 Exposure Response Date Recorded In the last month, have you been in contact with someone who was confirmed or suspected to have Coronavirus / COVID-19? No / Unsure 03/11/2020 3:19 PM EST documented as of this encounter Plan of Treatment Not on file documented as of this encounter Procedures Procedure Name Priority Date/Time Associated Diagnosis Comments COVID-19 RT-PCR ([facility]) Routine 03/12/2020 10:04 AM EST Encounter for laboratory testing for COVID-19 virus [ICD-10-CM] documented in this encounter Results * COVID-19 RT-PCR ([facility]) (03/12/2020 10:04 AM EST) COVID-19 RT-PCR SARS-COV-2 NOT DETECTED Not Detected 03/13/2020 9:22 AM EST [facility] Comment: ADDITIONAL INFORMATION The [facility] COVID-19 RT-PCR Assay is Real-Time Reverse Maintenance Of Way Foreman Polymerase Chain Reaction (tank charger-PCR) for the in vitro qualitative detection of three SARS-Cov-2 target sequences unique to the coronavirus disease 2019 (COVID-19). This is an Emergency Use Authorization (EUA) in vitro diagnostic (IVD) test that has been modified to include the [employer] automated liquid handler. Its analytical performance characteristics have been determined by the paper twister tender and verified by [facility] in a manner consistent with CLIA requirements. This test may be used for clinical purposes and should not be regarded as purely investigational or for research use only. This laboratory is certified under the Clinical Laboratory Improvement Amendments of 1988 (CLIA) as qualified to perform high complexity clinical testing. Reference interval for this testing is SARS-CoV-2 Not Detected. Fact sheets for this Emergency Use Authorization assay can be found at the following links: For Healthcare Providers: https://www.fda.gov/media/303904/download For Patients: https://www.fda.gov/media/854861/download TEST LIMITATIONS Positive results are indicative of the presence of SARS-CoV-2 RNA; clinical correlation with patient history and other diagnostic information is necessary to determine patient infection status. Positive results do not rule out bacterial infection or co-infection with other viruses. The agent detected may not be the definite cause of disease. Negative results do not exclude SARS-CoV-2 infection and should not be used as the sole basis for patient management decisions. Negative results must be combined with clinical observations, patient history, and epidemiological information. Improper sample collection, transport or storage may impede the ability of the assay to detect target sequences. Inconclusive specimens are not repeated, and recollection and submission of a new sample is recommended. The performance of the TaqPath COVID-19 Combo Kit was established using nasopharyngeal swab, nasopharyngeal aspirate, and bronchoalveolar lavage (BAL) specimens. The limit of detection for the assay was determined to be 0.75copies/uL in the specimens of nasopharyngeal swab. Other specimen types may be need for further validation before testing on this system. For further details refer to the Secret TaqPath COVID-19 Combo Kit EUA submission (https://www.[employer].gov/media/254383/download). ----- Test performed by [facility], [address] [place] [address] CLIA# [id number] ? Robert Butterfield M.D., Ph.D., [facility], Clinical Residential Life Director Microbiology Nasopharyngeal swab / Unknown 03/12/2020 10:04 AM EST 03/12/2020 10:04 AM EST Narrative [facility] - 03/13/2020 9:22 AM EST Performed at [facility], [address] [place] [address], [place] Lic [id number], CLIA [id number] Yusuf Carson MD MICROBIOLOGY - GENER AL ORDERABLES [address] [address] documented in this encounter Visit Diagnoses Diagnosis Encounter for laboratory testing for COVID-19 virus documented in this encounter Care Teams Mining Engineering Technologist Relationship Specialty Start Date End Date Bill Weiss MD [address] [place] [address] PCP - General Internal Medicine 02/28/20 documented as of this encounter
--- OUTSIDE RECORDS SUMMARY | 2024-04-20 19:06 | XMS_ITS | Continuity of Care Document ---
Author Organization [facility] Address [address] [place] [address]- [facility] Name Relationship Address Phone AUSTYN JAROCHO child Unknown Unavailable Care Team Providers Care Boat Loader Name Role Phone Richmond Avelar MD Primary Care Physician Encounter [facility] R [id number] Date(s): 03/16/24 - 04/15/24 [facility] [address] [place] [address]- us Attending Physician: Jaciel Bauer Admitting Physician: Jaciel Bauer Referring Physician: AdmtrJaciel Encounter Type: Triage Allergies, Adverse Reactions, Alerts Substance Criticality Severity Reaction Reaction Severity Status bacitracin Active Medications abiraterone 250 mg oral tablet 4 tablet = 1,000 mg, By Mouth, Daily, # 120 tablet, 0 Refills, Maintenance, 07/22/23 11:25:00 AM EDT,Tablet, Partial fill upon patient request if the prescription is for a schedule II opioid drug. Start Date: 07/22/23 Status: Ordered Quantity: 120.0 Unit: tablet Repeat number: 1 Problem List Condition Confirmation Course Effective Dates Status Health St atus Informant Severe obesity Confirmed Active Social History Social History Type Response Smoking Status Never (less than 100 in lifetime) entered on: 03/16/24 Sex Sex Representation Male (finding) Patient Care team information Care Team Personnel Name: Richmond Avelar MD Position: [facility] Outreach Member Role: PCP Address: [address] [place] [address]- Telecom: Care Team Related Persons Name: JAROCHO ZMAAN Insurance Providers Guarantor name: MORRO ESPINOZA Health Plan Information #: 1 Payer: NA Member Number: NA Policy Number: NA Group Number: [id number]
--- OUTSIDE RECORDS SUMMARY | 2024-04-20 19:06 | XMS_ITS | Encounter Summary ---
Author Organization [facility] Address [address] [place] [address] Care Team Providers Care Industrial Hygienist Name Role Phone Bill Weiss MD Primary Care Provider Encounter Details Date Type Department Care Team (Late st Contact Info) Description 02/27/2020 Lab Requisition [place] COVID-[address] [address] Yusuf Carson MD [address] [place], [place] [id number] Encounter for laboratory testing for COVID-19 virus [...] have Coronavirus / COVID-19? No / Unsure 02/28/2020 4:45 PM EST documented as of this encounter Plan of Treatment Not on file documented as of this encounter Procedures Procedure Name Priority Date/Time Associated Diagnosis Comments COVID-19 RT-PCR ([facility]) Routine 02/27/2020 9:18 AM EST Encounter for laboratory testing for COVID-19 virus [ICD-10-CM] documented in this encounter Results * COVID-19 RT-PCR ([facility]) (02/27/2020 9:18 AM EST) COVID-19 RT-PCR SARS-COV-2 NOT DETECTED Not Detected 02/28/2020 6:05 AM [facility] Comment: ADDITIONAL INFORMATION The CAMILLA COVID-19 RT-PCR Assay is Real-Time Reverse Digital Marketing Apprentice Polymerase Chain Reaction (material stress tester-PCR) for the in vitro qualitative detection of three SARS-Cov-2 target sequences unique to the coronavirus disease 2019 (COVID-19). This is an Emergency Use Authorization (EUA) in vitro diagnostic (IVD) test that has been modified to include the PerfectServe automated liquid handler. Its analytical performance characteristics have been determined by the drupal architect and verified by [facility] in a manner consistent with CLIA [...] at the following links: For Healthcare Providers: https://www.fda.gov/media/712490/download For Patients: https://www.fda.gov/media/817995/download TEST LIMITATIONS Positive results are indicative of [...] system. For further details refer to the SparCode TaqPath COVID-19 Combo Kit EUA submission (https://www.Above Security.gov/media/790659/download). ----- Test performed by [facility], [address] [place] [address] CLIA# [id number] ?[id number] ? Robert Butterfield M.D., Ph.D., [facility], Clinical Gin Clerk Microbiology Nasopharyngeal swab / Unknown 02/27/2020 9:18 AM EST 02/27/2020 9:18 AM EST Narrative [facility] - 02/28/2020 6:05 AM EST Performed at [facility], [address] [place] [address], [place] Lic 0695, CLIA [id number] Yusuf Carson MD MICROBIOLOGY - GENER AL ORDERABLES [address] [address] documented in this encounter Visit Diagnoses Diagnosis Encounter for laboratory testing for COVID-19 virus documented in this encounter Care Teams Industrial Hygienist Relationship Specialty Start Date End Date Bill Weiss MD [address] [place] [address] PCP - General Internal Medicine 02/28/20 documented as of this encounter
--- OUTSIDE RECORDS SUMMARY | 2024-04-20 19:06 | XMS_ITS | Encounter Summary ---
Author Organization [facility] Address [address] [place] [address] Care Team Providers Care Tightener Name Role Phone Bill Weiss MD Primary Care Provider [phone] Encounter Details Date Type Department Care Team (Late st Contact Info) Description 10/16/2020 Erroneous Encounter [facility] CONVERSION DEPT [address] [place] [address] Provider, MD Kristin Social History Tobacco Use Types Packs/Day Years Used Date Smoking Tobacco: Never Assessed Sex and Gender Information Value Date Recorded Sex Assigned at Not on file Gender Identity Not on file Sexual Orientation Not on file documented as of this encounter Plan of Treatment Not on file documented as of this encounter Visit Diagnoses Not on filedocumented in this encounter Care Teams Tightener Relationship Specialty Start Date End Date Bill Weiss MD [address] [place] [address] PCP - General Internal Medicine 02/28/20 documented as of this encounter
--- OUTSIDE RECORDS SUMMARY | 2024-04-20 19:06 | XMS_ITS | Clinical Summary ---
Author Organization [facility] Address [address] [place] [address] Care Team Providers Care Telemetry Monitor Name Role Phone Bill Weiss MD Primary Care Provider [phone] Social History Tobacco Use Types Packs/Day Years Used Date Smoking Tobacco: Never Assessed Sex and Gender Information Value Date Recorded Sex Assigned at Not on file Gender Identity Not on file Sexual Orientation Not on file Plan of Treatment Health Maintenance Due Date Last Done Comments Hepatitis C Virus Screening 1945 DTaP/Tdap/Td Vaccines (1 - Tdap) 08/22/1963 Pneumococcal Vaccines 50+ (1 of 1 - PCV) 1994 Zoster (Shingles) Vaccine (1 of 2) 1994 RSV Vaccine 60 years and old er and Patients (1 - 1-dose 75+ series) 08/22/2019 Influenza Vaccine 10/21/2023 COVID-19 Vaccine ( - 2023-2 5 season) 2023 Hepatitis B Vaccines Aged Out No long er eligible based on patient's age to complete this topic Medical Devices Implanted Type Area Instructional Coach Device Identifier Shelf Expiration Date Model / Serial / Lot [id number] Lens Iol +20 Cezar Mod C Bcnvx 13mm 6mm Posterior Chamber 1 - [id number] Implanted:Qty: 1 on 03/04/2020 by Yusuf Carson MD at [facility] [place] Lens [employer] [id number] / [id number] / Description:DCB00 [id number] Lens Iol +18.5 Cezar Mod C Bcnvx 13mm 6mm Posterior Chamber 1 - [id number] Implanted:Qty: 1 on 03/18/2020 by Yusuf Carson MD at [facility] [place] [employer] [id number] / Care Teams Telemetry Monitor Relationship Specialty Start Date End Date Bill Weiss MD [address] [place] [address] PCP - General Internal Medicine 02/28/20
--- OUTSIDE RECORDS SUMMARY | 2024-04-20 19:06 | XMS_ITS | Clinical Summary ---
Author Organization [facility] Address [address] [place] [address] Care Team Providers Care Insurance Risk Analyst Name Role Phone Bill Weiss MD Primary Care Provider [phone] Allergies Active Allergy Reactions Criticality Noted Date Comments Bacitracin Rash Low 01/27/2020 Medications cephalexin (KEFLEX) 500 mg capsule TAKE 4 CAPSULES ONE HOUR PRIOR TO DENTAL APPOINTMENT 0 Active amLODIPine (NORVASC) 5 mg tablet Take 5 mg by mouth 1 (one) time each day. 0 Active cyclobenzaprine (FLEXERIL) 10 mg tablet Take 1 tablet (10 mg total) by mouth 3 (three) times a day if needed for muscle spasms for up to 5 days. 10 tablet 1 Active Active Problems No known active problems Immunizations Immunization Administration Dates Next Due Moderna SARS-CoV-2 Vaccination 05/24/2020,2020 Social History Tobacco Use Types Packs/Day Years Used Date Smoking Tobacco: Never Smokeless Tobacco: Never Sex and Gender Information Value Date Recorded Sex Assigned at Not on file Legal Sex Male 10:14 AM EST Gender Identity Not on file Sexual Orientation Not on file Last Filed Vital Signs Vital Sign Reading Time Taken Comments Blood Pressure 136/70 01/09/2021 2:45 PM EDT Pulse 57 01/09/2021 3:12 PM EDT Temperature 36.4 ??C (97.5 ??F) 01/09/2021 1 1:53 AM EDT Respiratory Rate 20 01/09/2021 3:12 PM EDT Oxygen Saturation 95% 01/09/2021 3:12 PM EDT Inhaled Oxygen Concentration - - Weight 142.2 kg (313 lb 7.9 oz) 021 11:53 AM EDT Height 180.3 cm (5' 11 ) 01/09/2021 11: 53 AM EDT Body Mass Index 43.72 01/09/2021 11:53 AM EDT Plan of Treatment Health Maintenance Due Date Last Done Comments Medicare Annual Wellness Visit 1963 Tdap and Td Vaccines Adult 08/22/1963 Pneumococcal Vaccine: 50+ Years (1 of 1 - PCV) 1994 Zoster Vaccines (1 of 2) 1994 Fall Risk Screening 2009 RSV 60+ (1 - 1-dose 75+ series) 08/22/2019 COVID-19 Vaccine (3 2023-2 5 season) 2023 05/24/2020, 04/26/2020 Influenza Vaccine (#1) 2023 HIB Vaccines Aged Out No longer eligi ble based on patient's age to complete this topic HPV Vaccines Aged Out No longer eligi ble based on patient's age to complete this topic Hepatitis A Vaccines Aged Out No long er eligible based on patient's age to complete this topic IPV Vaccines Aged Out No longer eligi ble based on patient's age to complete this topic Meningococcal Vaccine Aged Out No tawny mendel eligible based on patient's age to complete this topic RSV <20 Months Aged Out No longer julián gible based on patient's age to complete this topic Insurance BELEM TATE Care Teams Insurance Risk Analyst Relationship Specialty Start Date End Date Bill Weiss MD [address] [place] [address] PCP - General 01/09/21
--- OUTSIDE RECORDS SUMMARY | 2024-04-20 19:06 | XMS_ITS | Encounter Summary ---
Author Organization [facility] Address [address] [place] [address] Care Team Providers Care Wood Boring Machine Operator Name Role Phone Bill Weiss MD Primary Care Provider [phone] Encounter Details Date Type Department Care Team (Late st Contact Info) Description 09/12/2020 Erroneous Encounter [facility] CONVERSION DEPT [address] [place] [address] Provider, MD Kristin Social History Tobacco Use [...] on filedocumented in this encounter Care Teams Wood Boring Machine Operator Relationship Specialty Start Date End Date Bill Weiss MD [address] [place] [address] PCP - General Internal Medicine 02/28/20 documented as of this encounter
--- OUTSIDE RECORDS SUMMARY | 2024-04-20 19:06 | XMS_ITS | Encounter Summary ---
Author Organization [facility] Address [address] [place] [address] Care Team Providers Care Indian Blanket Weaver Name Role Phone Bill Weiss MD Primary Care Provider Encounter Details Date Type Department Care Team (Late st Contact Info) Description 12/23/2020 Erroneous Encounter [facility] CONVERSION DEPT [address] [place] [address] Richmond Carrington III, MD [address] [place] [address] Social History Tobacco Use Types Packs/Day Years Used Date Smoking Tobacco: Never Assessed Sex and Gender Information Value Date Recorded Sex Assigned at Not on file Gender Identity Not on file Sexual Orientation Not on file documented as of this encounter Plan of Treatment Not on file documented as of this encounter Visit Diagnoses Not on filedocumented in this encounter Care Teams Indian Blanket Weaver Relationship Specialty Start Date End Date Bill Weiss MD [address] [place] [address] PCP - General Internal Medicine 02/28/20 documented as of this encounter
--- OUTSIDE RECORDS SUMMARY | 2024-04-20 19:06 | XMS_ITS | Encounter Summary ---
Author Organization [facility] Address [address] [place] [address] Care Team Providers Care Hydrator Name Role Phone Bill Weiss MD Primary Care Provider [phone] Encounter Details Date Type Department Care Team ([facility] st Contact Info) Description 01/09/2021 Procedure Pass [facility], Radiology (CT Scan) [address] [place] [address] Social History Tobacco Use Types Packs/Day Years [...] have Coronavirus / COVID-19? No / Unsure 01/09/2021 11:55 AM EDT documented as of this encounter Plan of Treatment Not on file documented as of this encounter Visit Diagnoses Not on filedocumented in this encounter Care Teams Hydrator Relationship Specialty Start Date End Date Bill Weiss MD [address] [place] [address] PCP - General 01/09/21 documented as of this encounter
== END ==
LOC: HO.SL 15:18
PROVIDERS: PCP Family Medicine; Visit Provider Nurse Practitioner Family
DX: R06.83 Snoring (principal); G47.10 Hypersomnia, unspecified; R35.1 Nocturia; R94.39 Abnormal result of other cardiovascular function study; R94.31 Abnormal electrocardiogram [ECG] [EKG]
CPT/HCPCS: 95806

== ENCOUNTER → 2024-04-20 15:29 | Outpatient (BNV) | payer MEDICARE, SELFPAY | PROVIDERS: PCP Family Medicine; Visit Provider Psychiatry & Neurology Neurology | DX: G47.33 Obstructive sleep apnea (adult) (pediatric) (principal) | CPT/HCPCS: 95806 ==

== ENCOUNTER → 2024-04-28 09:23 | Outpatient (BNVA) | payer MEDICARE, SELFPAY | PROVIDERS: PCP Family Medicine; Visit Provider Family Medicine | DX: I10 Essential (primary) hypertension (principal); I49.3 Ventricular premature depolarization; G47.30 Sleep apnea, unspecified; R60.9 Edema, unspecified; D64.9 Anemia, unspecified | CPT/HCPCS: 99212 ==

== ENCOUNTER → 2024-04-28 09:23 | Outpatient (AMB) | payer MEDICARE, SELFPAY | END | disposition home or self-care (01) | PROVIDERS: PCP Family Medicine; Visit Provider Family Medicine ==

== ENCOUNTER 2024-06-15 15:01 | Outpatient (REF) | payer MEDICARE, SELFPAY ==
--- NOTE | ~2024-06-15 | CT_ITS ---
CLINICAL HISTORY: I77.810 - Thoracic aortic ectasia Exam: CT angiogram of the chest with intravenous contrast. Comparison: None. Findings: Thoracic aorta is of normal caliber. No dissection or aneurysmal dilatation is seen. There is mild vascular calcification of the thoracic aorta. There is ectasia of the thoracic aorta which courses to the right of midline just proximal to the aortic hiatus. Abdominal aorta is patent. Appropriate contrast seen within the celiac artery and superior mesenteric artery. There is mild vascular calcification of the origin of the renal arteries without occlusive phenomenon. Central pulmonary arteries are patent. Dense coronary artery calcification. No enlarged lymph nodes. No focal areas of consolidation are identified within the lungs. No pleural effusion. No pneumothorax. Low attenuation throughout the liver is indicative of fatty infiltration. Gallbladder is surgically absent. Incomplete visualization of a peripherally calcified exophytic nodule off the left kidney measuring 5.0 x 4.3 cm in size. This has Hounsfield units between 35 and 55. Multilevel anterior syndesmophyte formation throughout the thoracic spine. Impression: 1. Ectasia without dissection or aneurysmal dilatation of the thoracic aorta. 2. No focal infiltrates. 3. Peripherally calcified exophytic mass lesion off the left kidney. This is indeterminate in etiology on single phase study. Suggest beginning with a renal ultrasound to determine if this is a cystic or solid lesion. Further evaluation may be indicated pending the results of the ultrasound. This document has been electronically signed by: Michael Phillips MD on 06/16/2024 11:05:15
[2024-06-15] MEDS: iohexoL 350 MG/ML 100 ML INFUS..BTL IV (16:14)
--- OUTSIDE RECORDS SUMMARY | 2024-06-15 18:41 | XMS_ITS | Encounter Summary ---
Author Organization [facility] Address [address] [place] [address] Care Team Providers Care Wash Crew Person Name Role Phone Bill Weiss MD Primary Care Provider [phone] Encounter Details Date Type Department Care Team (Late st Contact Info) Description 02/27/2020 Lab Requisition [place] COVID-[address] [address] Yusuf Carson MD [address] [place], [place] [phone] Encounter for laboratory testing for COVID-19 virus [...] encounter Results * COVID-19 RT-PCR ([facility]) (02/27/2020 9:18 AM EST) COVID-19 RT-PCR SARS-COV-2 NOT DETECTED Not Detected 02/28/2020 6:05 AM [facility] Comment: ADDITIONAL INFORMATION The CAMILLA COVID-19 RT-PCR Assay is Real-Time Reverse Die Trouble Shooter Polymerase Chain Reaction (special investigator-PCR) for the in vitro qualitative detection of three SARS-Cov-2 target sequences unique to the coronavirus disease 2019 (COVID-19). This is an Emergency Use Authorization (EUA) in vitro diagnostic (IVD) test that has been modified to include the Campus Bubble automated liquid handler. Its analytical performance characteristics have been determined by the soft water mechanic and verified by [facility] in a manner consistent with CLIA [...] at the following links: For Healthcare Providers: https://www.fda.gov/media/600555/download For Patients: https://www.fda.gov/media/062481/download TEST LIMITATIONS Positive results are indicative of [...] system. For further details refer to the Metara TaqPath COVID-19 Combo Kit EUA submission (https://www.Octovis[employer] Inc[employer]gov/media/088141/download). ----- Test performed by [facility], [address] [place] [address] CLIA# [id number] ?[id number] ? Robert Butterfield M.D., Ph.D., [facility], Clinical Shaper Set Up Operator Microbiology Nasopharyngeal swab / Unknown 02/27/2020 9:18 AM EST 02/27/2020 9:18 AM EST Narrative [facility] - 02/28/2020 6:05 AM EST Performed at [facility], [address] [place] [address], [place] Lic [address], CLIA [id number] Yusuf Carson MD MICROBIOLOGY - GENER AL ORDERABLES [address] [address] documented in this encounter Visit Diagnoses Diagnosis Encounter for laboratory testing for COVID-19 virus documented in this encounter Care Teams Wash Crew Person Relationship Specialty Start Date End Date Bill Weiss MD [address] [place] [address] PCP - General Internal Medicine 02/28/20 documented as of this encounter
--- OUTSIDE RECORDS SUMMARY | 2024-06-15 18:41 | XMS_ITS | Encounter Summary ---
Author Organization [facility] Address [address] [place] [address] Care Team Providers Care Intelligence Operations Specialist Name Role Phone Bill Weiss MD Primary Care Provider [phone] Encounter Details Date Type Department Care Team ([facility] st Contact Info) Description 01/09/2021 Procedure Pass [place], Radiology (CT Scan) [address] [place] [address] Social History Tobacco Use Types Packs/Day Years [...] on filedocumented in this encounter Care Teams Intelligence Operations Specialist Relationship Specialty Start Date End Date Bill Weiss MD [address] [place] [address] PCP - General 01/09/21 documented as of this encounter
--- OUTSIDE RECORDS SUMMARY | 2024-06-15 18:41 | XMS_ITS | Encounter Summary ---
Author Organization [facility] Address [address] [place] [address] Care Team Providers Care Hosiery Bagger Name Role Phone Bill Weiss MD Primary Care Provider [phone] Encounter Details Date Type Department Care Team (Late st Contact Info) Description 03/12/2020 Lab Requisition [place] COVID-[address] [address] Yusuf Carson MD [address] [place], [place] [id number] Encounter for laboratory testing for COVID-19 virus [...] DETECTED Not Detected 03/13/2020 9:22 AM EST [facility] Comment: ADDITIONAL INFORMATION The [facility] COVID-19 RT-PCR Assay is Real-Time Reverse Edge Burnisher Uppers Polymerase Chain Reaction (bryologist-PCR) for the in vitro qualitative detection of three SARS-Cov-2 target sequences unique to the coronavirus disease 2019 (COVID-19). This is an Emergency Use Authorization (EUA) in vitro diagnostic (IVD) test that has been modified to include the TxCell automated liquid handler. Its analytical performance characteristics have been determined by the bun machine operator and verified by [facility] in a manner consistent with CLIA [...] at the following links: For Healthcare Providers: https://www.fda.gov/media/096448/download For Patients: https://www.fda.gov/media/481201/download TEST LIMITATIONS Positive results are indicative of [...] system. For further details refer to the Seniorlink TaqPath COVID-19 Combo Kit EUA submission (https://www.Itineris.gov/media/685663/download). ----- Test performed by [facility], [address] [place] [address] CLIA# [id number] ?CL-[id number] ? Robert Butterfield M.D., Ph.D., [facility], Clinical Creative Art Director Microbiology Nasopharyngeal swab / Unknown 03/12/2020 10:04 AM EST 03/12/2020 10:04 AM EST Narrative [facility] - 03/13/2020 9:22 AM EST Performed at [facility], [address] [place] [address], [place] Lic [address], CLIA [id number] Yusuf Carson MD MICROBIOLOGY - GENER AL ORDERABLES [address] [address] documented in this encounter Visit Diagnoses Diagnosis Encounter for laboratory testing for COVID-19 virus documented in this encounter Care Teams Hosiery Bagger Relationship Specialty Start Date End Date Bill Weiss MD [address] [place] [address] PCP - General Internal Medicine 02/28/20 documented as of this encounter
--- OUTSIDE RECORDS SUMMARY | 2024-06-15 18:41 | XMS_ITS | Encounter Summary ---
Author Organization [facility] Address [address] [place] [address] Care Team Providers Care Carbon Cutter Name Role Phone Bill Weiss MD Primary Care Provider [phone] Encounter Details Date Type Department Care Team (Late st Contact Info) Description 12/23/2020 Erroneous Encounter [facility] CONVERSION DEPT [address] [place] [address] Richmond Carrington III, MD [address] [place] [address] Social History Tobacco Use Types Packs/Day Years Used Date Smoking Tobacco: Never Assessed Sex and Gender Information Value Date Recorded Sex Assigned at Not on file Gender Identity Not on file Sexual Orientation Not on file documented as of this encounter Plan of Treatment Not on file documented as of this encounter Visit Diagnoses Not on filedocumented in this encounter Care Teams Carbon Cutter Relationship Specialty Start Date End Date Bill Weiss MD [address] [place] [address] PCP - General Internal Medicine 02/28/20 documented as of this encounter
--- OUTSIDE RECORDS SUMMARY | 2024-06-15 18:41 | XMS_ITS | Encounter Summary ---
Author Organization [facility] Address [address] [place] [address] Care Team Providers Care Numerical Control Lathe Operator Name Role Phone Bill Weiss MD Primary Care Provider [phone] Encounter Details Date Type Department Care Team (Late st Contact Info) Description 10/16/2020 Erroneous Encounter [facility] CONVERSION DEPT [address] [place] [address] Provider, MD Kristin Social History Tobacco Use [...] on filedocumented in this encounter Care Teams Numerical Control Lathe Operator Relationship Specialty Start Date End Date Bill Weiss MD [address] [place] [address] PCP - General Internal Medicine 02/28/20 documented as of this encounter
--- OUTSIDE RECORDS SUMMARY | 2024-06-15 18:41 | XMS_ITS | Clinical Summary ---
Author Organization [facility] Address [address] [place] [address] Care Team Providers Care District Attorney Name Role Phone Bill Weiss MD Primary Care Provider [phone] Allergies Active Allergy Reactions Criticality Noted Date [...] this topic Insurance BELEM TATE Care Teams District Attorney Relationship Specialty Start Date End Date Bill Weiss MD [address] [place] [address] PCP - General 01/09/21
--- OUTSIDE RECORDS SUMMARY | 2024-06-15 18:41 | XMS_ITS | Clinical Summary ---
Author Organization [facility] Address [address] [place] [address] Care Team Providers Care Promotion Specialist Name Role Phone Bill Weiss MD Primary Care Provider [phone] Social History Tobacco Use Types Packs/Day Years [...] this topic Medical Devices Implanted Type Area Director Product Safety Device Identifier Shelf Expiration Date Model / Serial / Lot [id number] Lens Iol +20 Cezar Mod C Bcnvx 13mm 6mm Posterior Chamber 1 - [id number] Implanted:Qty: 1 on 03/04/2020 by Yusuf Carson MD at [facility] [place] [employer]ens [employer] [id number] / [id number] / Description:DCB00 [id number] Lens Iol +18.5 Cezar Mod C Bcnvx 13mm 6mm Posterior Chamber 1 - [id number] Implanted:Qty: 1 on 03/18/2020 by Yusuf Carson MD at [facility] [place] [employer] [id number] / [id number] / Care Teams Promotion Specialist Relationship Specialty Start Date End Date Bill Weiss MD [address] [place] [address] PCP - General Internal Medicine 02/28/20
--- OUTSIDE RECORDS SUMMARY | 2024-06-15 18:41 | XMS_ITS | Encounter Summary ---
Author Organization [facility] Address [address] [place] [address] Care Team Providers Care Occupational Health Manager Name Role Phone Bill Weiss MD Primary Care Provider [phone] Encounter Details Date Type Department Care Team (Late st Contact Info) Description 09/12/2020 Erroneous Encounter [facility] CONVERSION DEPT [address] [place] [address] Provider, MD Kristin Social History Tobacco Use [...] on filedocumented in this encounter Care Teams Occupational Health Manager Relationship Specialty Start Date End Date Bill Weiss MD [address] [place] [address] PCP - General Internal Medicine 02/28/20 documented as of this encounter
[2024-06-16 12:42] LABS: Creatinine POC 0.9 mg/dL (0.5-1.4); GFR POC > 60
== END 2024-06-15 15:02 | disposition home or self-care (01) ==
LOC: HO.CT 15:01
PROVIDERS: PCP Family Medicine; Visit Provider Nurse Practitioner Family
DX: I77.810 Thoracic aortic ectasia (principal)
CPT/HCPCS: 71275; 82565; Q9967

== ENCOUNTER → 2024-06-15 15:05 | Outpatient (BNV) | payer MEDICARE, SELFPAY | PROVIDERS: PCP Family Medicine; Visit Provider Radiology Diagnostic Radiology | DX: I77.810 Thoracic aortic ectasia (principal) | CPT/HCPCS: 71275 ==

== ENCOUNTER 2024-06-26 07:45 | Outpatient (AMB) | payer MEDICARE, SELFPAY ==
--- OUTSIDE RECORDS SUMMARY | 2024-06-26 07:48 | XMS_ITS | Encounter Summary ---
Author Organization [facility] Address [address] [place] [address] Care Team Providers Care Synthetic Filament Spinner Name Role Phone Bill Weiss MD Primary Care Provider [phone] Encounter Details Date Type Department Care Team ([facility] st Contact Info) Description 01/09/2021 Procedure Pass [facility], Radiology (CT Scan) [address] [place] [address] Social History Tobacco Use Types Packs/Day Years [...] on filedocumented in this encounter Care Teams Synthetic Filament Spinner Relationship Specialty Start Date End Date Bill Weiss MD [address] [place] [address] PCP - General 01/09/21 documented as of this encounter
--- OUTSIDE RECORDS SUMMARY | 2024-06-26 07:48 | XMS_ITS | Clinical Summary ---
Author Organization [facility] Address [address] [place] [address] Care Team Providers Care Physician Aide Name Role Phone Bill Weiss MD Primary Care Provider [phone] Social History Tobacco Use Types Packs/Day Years [...] this topic Medical Devices Implanted Type Area Pneumatic Systems Operator Device Identifier Shelf Expiration Date Model / Serial / Lot [id number] Lens Iol +20 Cezar Mod C Bcnvx 13mm 6mm Posterior Chamber 1 - [id number] Implanted:Qty: 1 on 03/04/2020 by Yusuf Carson MD at [facility] [place] [employer] [id number] / [id number] / Description:DCB00 [id number] Lens Iol +18.5 Cezar Mod C Bcnvx 13mm 6mm Posterior Chamber 1 - [id number] Implanted:Qty: 1 on 03/18/2020 by Yusuf Carson MD at [facility] [place] [employer] [id number] / [id number] / Care Teams Physician Aide Relationship Specialty Start Date End Date Bill Weiss MD [address] [place] [address] PCP - General Internal Medicine 02/28/20
--- OUTSIDE RECORDS SUMMARY | 2024-06-26 07:48 | XMS_ITS | Encounter Summary ---
Author Organization [facility] Address [address] [place] [address] Care Team Providers Care Woodwinds Teacher Name Role Phone Bill Weiss MD Primary Care Provider [phone] Encounter Details Date Type Department Care Team (Late st Contact Info) Description 10/16/2020 Erroneous Encounter OAH CONVERSION DEPT [address] [place] [id number] Provider, MD Kristin Social History Tobacco Use [...] on filedocumented in this encounter Care Teams Woodwinds Teacher Relationship Specialty Start Date End Date Bill Weiss MD [address] [place] [address] PCP - General Internal Medicine 02/28/20 documented as of this encounter
--- OUTSIDE RECORDS SUMMARY | 2024-06-26 07:48 | XMS_ITS | Encounter Summary ---
Author Organization [facility] Address [address] [place] [address] Care Team Providers Care Admissions Specialist Name Role Phone Bill Weiss MD Primary Care Provider [phone] Encounter Details Date Type Department Care Team (Late st Contact Info) Description 03/12/2020 Lab Requisition [place] COVID-[address] [address] Yusuf Carson MD [address] [place], [place] [id number] Encounter for laboratory testing for COVID-19 virus [...] DETECTED Not Detected 03/13/2020 9:22 AM EST [facility] Comment: ADDITIONAL INFORMATION The CAMILLA COVID-19 RT-PCR Assay is Real-Time Reverse Hi Lift Operator Polymerase Chain Reaction (field application engineer-PCR) for the in vitro qualitative detection of three SARS-Cov-2 target sequences unique to the coronavirus disease 2019 (COVID-19). This is an Emergency Use Authorization (EUA) in vitro diagnostic (IVD) test that has been modified to include the Jaw[employer]ive [employer] automated liquid handler. Its analytical performance characteristics have been determined by the food service agent and verified by [facility] in a manner consistent with CLIA [...] at the following links: For Healthcare Providers: https://www.fda.gov/media/096648/download For Patients: https://www.fda.gov/media/175657/download TEST LIMITATIONS Positive results are indicative of [...] system. For further details refer to the Guardi[employer] TaqPath COVID-19 Combo Kit EUA submission (https://www.Divide.gov/media/487012/download). ----- Test performed by [facility], [address] [place] [address] CLIA# [id number] ?[id number] ? Robert Butterfield M.D., Ph.D., [facility] [place], Clinical Repairer Wood Furniture Microbiology Nasopharyngeal swab / Unknown 03/12/2020 10:04 AM EST 03/12/2020 10:04 AM EST Narrative [facility] - 03/13/2020 9:22 AM EST Performed at [facility], [address] [place] [address], [place] Lic 0695, CLIA [id number] Yusuf Carson MD MICROBIOLOGY - GENER AL ORDERABLES [address] [address] documented in this encounter Visit Diagnoses Diagnosis Encounter for laboratory testing for COVID-19 virus documented in this encounter Care Teams Admissions Specialist Relationship Specialty Start Date End Date Bill Weiss MD [address] [place] [address] PCP - General Internal Medicine 02/28/20 documented as of this encounter
--- OUTSIDE RECORDS SUMMARY | 2024-06-26 07:48 | XMS_ITS | Encounter Summary ---
Author Organization [facility] Address [address] [place] [address] Care Team Providers Care Party Bus Driver Name Role Phone Bill Weiss MD Primary Care Provider [phone] Encounter Details Date Type Department Care Team (Late st Contact Info) Description 02/27/2020 Lab Requisition [place] COVID-[address] [address] Yusuf Carson MD [address] [place], [place] [phone] Encounter for laboratory testing for COVID-19 virus [...] NOT DETECTED Not Detected 02/28/2020 6:05 AM [facility] Comment: ADDITIONAL INFORMATION The CAMILLA COVID-19 RT-PCR Assay is Real-Time Reverse Audit Spec Polymerase Chain Reaction (special officer-PCR) for the in vitro qualitative detection of three SARS-Cov-2 target sequences unique to the coronavirus disease 2019 (COVID-19). This is an Emergency Use Authorization (EUA) in vitro diagnostic (IVD) test that has been modified to include the Omedix automated liquid handler. Its analytical performance characteristics have been determined by the instructor knitting and verified by [facility] in a manner consistent with CLIA [...] at the following links: For Healthcare Providers: https://www.fda.gov/media/024433/download For Patients: https://www.fda.gov/media/444797/download TEST LIMITATIONS Positive results are indicative of [...] system. For further details refer to the [employer] TaqPath COVID-19 Combo Kit EUA submission (https://www.Bokecc.gov/media/542380/download). ----- Test performed by [facility], [address] [place] [address] CLIA# [id number] ?[id number] ? Robert Butterfield M.D., Ph.D., [facility], Clinical Universal Grinder Tool Microbiology Nasopharyngeal swab / Unknown 02/27/2020 9:18 AM EST 02/27/2020 9:18 AM EST Narrative [facility] - 02/28/2020 6:05 AM EST Performed at [facility], [address] [place] [address], [place] Lic [address], CLIA [id number] Yusuf Carson MD MICROBIOLOGY - GENER AL ORDERABLES [address] [address] documented in this encounter Visit Diagnoses Diagnosis Encounter for laboratory testing for COVID-19 virus documented in this encounter Care Teams Party Bus Driver Relationship Specialty Start Date End Date Bill Weiss MD [address] [place] [address] PCP - General Internal Medicine 02/28/20 documented as of this encounter
--- OUTSIDE RECORDS SUMMARY | 2024-06-26 07:48 | XMS_ITS | Clinical Summary ---
Author Organization [facility] Address [address] [place] [address] Care Team Providers Care Clinical Project Leader Name Role Phone Bill Weiss MD Primary Care Provider [phone] Allergies Active Allergy Reactions Criticality Noted Date [...] 5 season) 2023 05/24/2020, 04/26/2020 Influenza Vaccine (Season Ended) 2024 HIB Vaccines Aged Out No longer eligi [...] this topic Insurance [employer]LEM TATE Care Teams Clinical Project Leader Relationship Specialty Start Date End Date Bill Weiss MD [address] [place] [address] PCP - General 01/09/21
--- OUTSIDE RECORDS SUMMARY | 2024-06-26 07:48 | XMS_ITS | Encounter Summary ---
Author Organization [facility] Address [address] [place] [address] Care Team Providers Care Magnetic Observer Name Role Phone Bill Weiss MD Primary Care Provider Encounter Details Date Type Department Care Team (Late st Contact Info) Description 12/23/2020 Erroneous Encounter OAH CONVERSION DEPT [address] [place] [address] Richmond Carrington III, MD [address] [place] [address] Social History Tobacco Use Types Packs/Day Years Used Date Smoking Tobacco: Never Assessed Sex and Gender Information Value Date Recorded Sex Assigned at Not on file Gender Identity Not on file Sexual Orientation Not on file documented as of this encounter Plan of Treatment Not on file documented as of this encounter Visit Diagnoses Not on filedocumented in this encounter Care Teams Magnetic Observer Relationship Specialty Start Date End Date Bill Weiss MD [address] [place] [address] PCP - General Internal Medicine 02/28/20 documented as of this encounter
--- OUTSIDE RECORDS SUMMARY | 2024-06-26 07:48 | XMS_ITS | Encounter Summary ---
Author Organization [facility] Address [address] [place] [address] Care Team Providers Care Cytogeneticist Name Role Phone Bill Weiss MD Primary Care Provider [phone] Encounter Details Date Type Department Care Team (Late st Contact Info) Description 09/12/2020 Erroneous Encounter OAH CONVERSION DEPT [address] [place] [phone] Provider, MD Kristin Social History Tobacco Use [...] on filedocumented in this encounter Care Teams Cytogeneticist Relationship Specialty Start Date End Date Bill Weiss MD [address] [place] [address] PCP - General Internal Medicine 02/28/20 documented as of this encounter
[2024-06-26 08:24] VITALS: BP 130/80; PULSE 58; BMI 41.0
--- NOTE | 2024-06-26 08:24 | MHC.OFFVIS ---
Vital Signs 06/26/24 08:24 Height 5 ft 11 in Weight 293 lb 10.491 oz BMI 41.0 BP 130/80 Blood Pressure Location Rt brachial Position Sitting Pulse 58 Pulse Source Pulse Oximeter Intake Visit Reasons: r/s 05/03/24 3 mos followup /echo Juice Scaleman Required: No Accompanied by: Self / Same As Patient Allergies topical bacitricin Allergy (Mild, Uncoded 02/03/24 15:08) rash HPI Comments Details: Karmen returns for follow-up regarding PVCs. Overall, he states he feels well. Main complaint is rather aches and pains but nothing specifically cardiac related. He has undergone an extensive cardiac workup including cardiac catheterization and has also seen EP. Remains on beta-blockers. [facility] Medical History FH: cholecystectomy Arthritis of right ankle Prostate cancer High blood pressure Surgical History History of cardiac cath History of bilateral knee replacement History of carpal tunnel surgery History of ankle surgery Family History Mother Cardiovascular disease Cancer Father High blood pressure Social History (Updated 06/26/24 @ 08:27 by Sharon Galdamez CMA) Household Members: Spouse Housing: Other Housing Other:: nelda Are you a primary toddler caregiver to a significant other at home: Yes Do you presently have visiting nurse or other home services: No 75 years or older and lives alone: No Alcohol intake: current Alcohol intake frequency: holidays/special occasions only Patient Tobacco Use Status: Never used Tobacco e-Cigarette/Vaping Use: Never Used Second Hand Smoke Exposure: No Special nikkie needs: Yes Special nikkie accommodation details: Oriental Orthodox service: No Current occupational status: retired Cognitive needs: No Hearing needs: Yes Vision needs: Yes (patient wears glasses) Review of Systems Const Denies chills, Denies fatigue, Denies fever(s), Denies weight gain and Denies weight loss ENT Denies dizziness Card Denies chest pain, Denies leg edema, Denies lightheadedness, Denies palpitations, Denies dyspnea on exertion, Denies orthopnea and Denies other Resp Denies cough and Denies dyspnea on exertion GI Denies hematochezia and Denies change in stool character Musc Denies abnormal gait, Denies muscle weakness, Denies numbness, Denies radiating pain into limb and Denies tingling Neuro Denies abnormal gait, Denies dizziness, Denies numbness and Denies tingling Endo Denies fatigue and Denies palpitations Physical Exam Vital Signs: Last Vital Signs Pulse 58 06/26/24 08:24 BP 130/80 06/26/24 08:24 BMI result Body Mass Index 41.0 Const General: comfortable and no acute distress Orientation/consciousness: patient oriented x3 HEENT Other: Unremarkable Head: Yes normal to inspection Neck Neck: Yes normal visual inspection Chest Chest palpation & inspection: normal inspection of the chest Resp Auscultation: clear to auscultation bilaterally Cardio Palpation: normal PMI Heart sounds: S1 normal heart sound present, S2 normal heart sound present, no gallops, no murmurs and no rubs GI Palpation (GI): Soft to palpation Back/Spine/Pelvis Other: unremarkable Skin General skin exam: no rashes or lesions noted Neuro General: patient oriented x3 Extrem General: Yes normal to inspection Psych Mental Status: mental status grossly normal Assessment & Plan Assessment & Plan (1) PVC (premature ventricular contraction): Code(s): I49.3 - Ventricular premature depolarization Category: Medical Plan: Cardiac studies reviewed. Echocardiogram with LVEF of 55-60%. Cardiac catheterization shows mild irregularities in the LAD. Minimal irregularities in the circumflex/RCA. Normal left main. Holter with underlying sinus rhythm with an average rate of 59/Min. Frequent ventricular ectopy with a burden of 27%. Thought to be unifocal. Cardiac MRI reported have LVEF of 46%. No significant late gadolinium enhancement. RVEF 44%. (2) Ascending aorta dilatation: Code(s): I77.810 - Thoracic aortic ectasia Category: Medical Plan: In the MRI, ascending aortic size described to be 4.4 cm. In the CTA, described to be ectatic without dissection or aneurysmal dilatation. In the echocardiogram, size thought to be 4.6 cm. Overall, probably slightly dilated but there is some discrepancy between the studies. We will check this in one year. (3) Obstructive sleep apnea: Code(s): G47.33 - Obstructive sleep apnea (adult) (pediatric) Category: Medical Plan: Sleep study reported have severe degree of sleep apnea. Discussed with the patient about need for CPAP but he states he will not be able tolerate it. This may be the reason why he is getting PVCs. Advised follow-up with sleep medicine. Orders: Orders CA echo transthoracic complete 1 Year I49.3 - Ventricular premature depolarization, I77.810 - Thoracic aortic ectasia ECG 3 day holter monitor 1 Year I49.3 - Ventricular premature depolarization Coding Level of Care Code Est Pt Level 4 (46292) Complex EM visit Add On G2211 Diagnoses PVC (premature ventricular contraction) I49.3 Ascending aorta dilatation I77.810 Obstructive sleep apnea G47.33
== END 2024-06-26 08:40 | disposition home or self-care (01) ==
LOC: HO.HCS 07:45
PROVIDERS: PCP Family Medicine; Visit Provider Internal Medicine
DX: I49.3 Ventricular premature depolarization (principal); I77.810 Thoracic aortic ectasia; G47.33 Obstructive sleep apnea (adult) (pediatric)
CPT/HCPCS: 99214; G2211

== ENCOUNTER → 2024-06-26 07:45 | Outpatient (BNVA) | payer MEDICARE, SELFPAY | PROVIDERS: PCP Family Medicine; Visit Provider Internal Medicine | DX: I49.3 Ventricular premature depolarization (principal); I77.810 Thoracic aortic ectasia; G47.33 Obstructive sleep apnea (adult) (pediatric) | CPT/HCPCS: 99212 ==

== ENCOUNTER 2024-07-20 09:01 | Outpatient (REF) | payer MEDICARE, SELFPAY ==
--- OUTSIDE RECORDS SUMMARY | 2024-07-20 09:40 | XMS_ITS | Clinical Summary ---
Author Organization [facility] Address [address] [place] [address] Care Team Providers Care Barker Peeler Name Role Phone Bill Weiss MD Primary Care Provider [phone] Social History Tobacco Use Types Packs/Day Years Used Date Smoking Tobacco: Never Assessed Sex and Gender Information Value Date Recorded Sex Assigned at Not on file Legal Sex Male 7:37 PM EDT Gender Identity Not on file Sexual Orientation [...] this topic Medical Devices Implanted Type Area Epidemiology Investigator Device Identifier Shelf Expiration Date Model / Serial / Lot [id number] Lens Iol +20 Cezar Mod C Bcnvx 13mm 6mm Posterior Chamber 1 - [id number] Implanted:Qty: 1 on 03/04/2020 [facility] [employer] [employer] [id number] / [id number] / Description:DCB00 [id number] Lens Iol +18.5 Cezar Mod C Bcnvx 13mm 6mm Posterior Chamber 1 - [id number] Implanted:Qty: 1 on 03/18/2020 by Yusuf Carson MD at [facility] [place] [employer] [id number] / [id number] / Insurance [employer] MGD MEDICARE Care Teams Barker Peeler Relationship Specialty Start Date End Date Bill Weiss MD [address] [place] [address] PCP - General Internal Medicine 02/28/20
--- OUTSIDE RECORDS SUMMARY | 2024-07-20 09:40 | XMS_ITS | Encounter Summary ---
Author Organization [facility] Address [address] [place] [address] Care Team Providers Care Supplier Diversity Director Name Role Phone Bill Weiss MD Primary Care Provider [phone] Encounter Details Date Type Department Care Team (Late st Contact Info) Description 02/27/2020 Lab Requisition [place] COVID-[address] [address] Yusuf Carson MD [address] [place], [place] [id number] Encounter for laboratory testing for COVID-19 virus [...] NOT DETECTED Not Detected 02/28/2020 6:05 AM EST [facility] Comment: ADDITIONAL INFORMATION The CAMILLA COVID-19 RT-PCR Assay is Real-Time Reverse Bankruptcy Attorney Polymerase Chain Reaction (record center specialist-PCR) for the in vitro qualitative detection of three SARS-Cov-2 target sequences unique to the coronavirus disease 2019 (COVID-19). This is an Emergency Use Authorization (EUA) in vitro diagnostic (IVD) test that has been modified to include the Anexon automated liquid handler. Its analytical performance characteristics have been determined by the supervisor phosphorus processing and verified by [facility] in a manner consistent with CLIA [...] at the following links: For Healthcare Providers: https://www.fda.gov/media/269424/download For Patients: https://www.fda.gov/media/956881/download TEST LIMITATIONS Positive results are indicative of [...] system. For further details refer to the Remind TechnologiesPath COVID-19 Combo Kit EUA submission (https://www.[employer] Berhad.gov/media/577979/download). ----- Test performed by [facility], [address] [place] [address] CLIA# [id number] ?[id number] ? Robert Butterfield M.D., Ph.D., [facility] [place], Clinical Unit Assembler Microbiology Nasopharyngeal swab / Unknown 02/27/2020 9:18 AM EST 02/27/2020 9:18 AM EST Narrative [facility] - 02/28/2020 6:05 AM EST Performed at [facility], [address] [place] [address], [place] Lic 0695, CLIA [id number] Yusuf Carson MD MICROBIOLOGY - GENERAL ORDERAB LES Final Result [address] [address] documented in this encounter Visit Diagnoses Diagnosis Encounter for laboratory testing for COVID-19 virus documented in this encounter Care Teams Supplier Diversity Director Relationship Specialty Start Date End Date Bill Weiss MD [address] [place] [address] PCP - General Internal Medicine 02/28/20 documented as of this encounter
--- OUTSIDE RECORDS SUMMARY | 2024-07-20 09:40 | XMS_ITS | Clinical Summary ---
Author Organization [facility] Address [address] [place] [address] Care Team Providers Care Milk Processing Worker Name Role Phone Bill Weiss MD Primary Care Provider [phone] Allergies Active Allergy Reactions Criticality Noted Date [...] this topic Insurance [employer] T[employer] Care Teams Milk Processing Worker Relationship Specialty Start Date End Date Bill Weiss MD [address] [place] [address] PCP - General 01/09/21
--- OUTSIDE RECORDS SUMMARY | 2024-07-20 09:40 | XMS_ITS | Encounter Summary ---
Author Organization [facility] Address [address] [place] [address] Care Team Providers Care Mine Engineering Superintendent Name Role Phone Bill Weiss MD Primary Care Provider [phone] Encounter Details Date Type Department Care Team ([facility] st Contact Info) Description 01/09/2021 Procedure Pass [facility], Radiology (CT Scan) [address] [place] [address] Social History Tobacco Use Types Packs/Day Years [...] on filedocumented in this encounter Care Teams Mine Engineering Superintendent Relationship Specialty Start Date End Date Bill Weiss MD [address] [place] [address] PCP - General 01/09/21 documented as of this encounter
--- OUTSIDE RECORDS SUMMARY | 2024-07-20 09:40 | XMS_ITS | Encounter Summary ---
Author Organization [facility] Address [address] [place] [address] Care Team Providers Care Dining Chair Seat Cushion Trimmer Name Role Phone Bill Weiss MD Primary Care Provider [phone] Encounter Details Date Type Department Care Team (Late st Contact Info) Description 03/12/2020 Lab Requisition [place] COVID-[address] [address] Yusuf Carson MD [address] [place], [place] [phone] Encounter for laboratory testing for COVID-19 virus [...] DETECTED Not Detected 03/13/2020 9:22 AM EST [facility] Comment: ADDITIONAL INFORMATION The CAMILLA COVID-19 RT-PCR Assay is Real-Time Reverse Power Switchboard Operator Polymerase Chain Reaction (slot router-PCR) for the in vitro qualitative detection of three SARS-Cov-2 target sequences unique to the coronavirus disease 2019 (COVID-19). This is an Emergency Use Authorization (EUA) in vitro diagnostic (IVD) test that has been modified to include the 3G Multimedia automated liquid handler. Its analytical performance characteristics have been determined by the sonar watchstander and verified by [facility] in a manner consistent with CLIA [...] at the following links: For Healthcare Providers: https://www.fda.gov/media/101654/download For Patients: https://www.fda.gov/media/992963/download TEST LIMITATIONS Positive results are indicative of [...] system. For further details refer to the AirCellPath COVID-19 Combo Kit EUA submission (https://www.PostRank.gov/media/476413/download). ----- Test performed by The [facility], [address] [place] [address] CLIA# [id number] ?[id number] ? Robert Butterfield M.D., Ph.D., [facility] [place], Clinical Photovoltaic Power Systems Engineer Microbiology Nasopharyngeal swab / Unknown 03/12/2020 10:04 AM EST 03/12/2020 10:04 AM EST Narrative [facility] - 03/13/2020 9:22 AM EST Performed at [facility], [address] [place] [address], [place] Lic 0695, CLIA [id number] Yusuf Carson MD MICROBIOLOGY - GENERAL ORDERAB LES Final Result [address] [address] documented in this encounter Visit Diagnoses Diagnosis Encounter for laboratory testing for COVID-19 virus documented in this encounter Care Teams Dining Chair Seat Cushion Trimmer Relationship Specialty Start Date End Date Bill Weiss MD [address] [place] [address] PCP - General Internal Medicine 02/28/20 documented as of this encounter
--- OUTSIDE RECORDS SUMMARY | 2024-07-20 09:40 | XMS_ITS | Encounter Summary ---
Author Organization [facility] Address [address] [place] [address] Care Team Providers Care Substance Abuse Therapist Name Role Phone Bill Weiss MD Primary Care Provider [phone] Encounter Details Date Type Department Care Team (Late st Contact Info) Description 10/16/2020 Erroneous Encounter [facility] CONVERSION DEPT [address] [place] [address] Provider, MD Kristin Social History Tobacco Use [...] on filedocumented in this encounter Care Teams Substance Abuse Therapist Relationship Specialty Start Date End Date Bill Weiss MD [address] [place] [address] PCP - General Internal Medicine 02/28/20 documented as of this encounter
--- OUTSIDE RECORDS SUMMARY | 2024-07-20 09:40 | XMS_ITS | Encounter Summary ---
Author Organization [facility] Address [address] [place] [address] Care Team Providers Care Impress Associate Name Role Phone iBll Weiss MD Primary Care Provider [phone] Encounter Details Date Type Department Care Team (Late st Contact Info) Description 12/23/2020 Erroneous Encounter OAH CONVERSION DEPT [address] [place] [address] Richmond Carrington III, MD [address] [place] [address] Social History Tobacco Use Types Packs/Day Years [...] on filedocumented in this encounter Care Teams Impress Associate Relationship Specialty Start Date End Date Bill Weiss MD [address] [place] [address] PCP - General Internal Medicine 02/28/20 documented as of this encounter
--- OUTSIDE RECORDS SUMMARY | 2024-07-20 09:40 | XMS_ITS | Encounter Summary ---
Author Organization [facility] Address [address] [place] [address] Care Team Providers Care Motor Transport Inspector Name Role Phone Bill Weiss MD Primary Care Provider [phone] Encounter Details Date Type Department Care Team (Late st Contact Info) Description 09/12/2020 Erroneous Encounter OAH CONVERSION DEPT [address] [place] [address] Provider, MD Kristin Social History Tobacco Use [...] on filedocumented in this encounter Care Teams Motor Transport Inspector Relationship Specialty Start Date End Date Bill Weiss MD [address] [place] [address] PCP - General Internal Medicine 02/28/20 documented as of this encounter
[2024-07-20 11:23] LABS: MANUAL DIFF FLAG NO
[2024-07-20 11:34] LABS: Basophils Percent Auto 0.3 % (0-2); Eosinophils Absolute Auto 0.1 X10*3/uL (0.0-0.4); Eosinophils Percent Auto 1.5 % (0-4); Hematocrit 44.1 % (42.0-52.0); Hemoglobin 13.6 g/dl (14.0-18.0); Imm Gran Abs Auto 0.04 X10*3/uL (0.00-0.03); Imm Gran Pct Auto 0.6 % (0.0-0.4); Immature Retic Fraction 15.2 % (2.3-13.4); Lymphocytes Absolute Auto 1.2 X10*3/uL (1.2-4.9); Lymphocytes Percent Auto 18.2 % (20-40); Mean Corpuscular HGB Conc 30.8 g/dl (31.0-36.0); Mean Corpuscular Hemoglobin 26.2 pg (27.0-33.0); Mean Platelet Volume 11.1 fL (9.4-12.4); Monocytes Absolute Auto 0.8 X10*3/uL (0.1-1.2); Monocytes Percent Auto 11.1 % (2-11); Neutrophils Absolute Auto 4.6 x10*3/uL (2.0-8.3); Neutrophils Percent Auto 68.3 % (45-73); Platelet Count 170 X10*3/uL (160-400); Red Blood Count 5.19 X10*6/uL (4.60-5.80); Red Cell Distribution Width 17.4 % (11.0-16.0); Retic HGB Equivalent 29.8 pg (30.0-35.0); Reticulocyte Percent 1.1 % (0.5-1.8); Reticulocytes Absolute 0.055 X10*6/uL (0.026-0.095); White Blood Count 6.8 X10*3/uL (4.8-10.8)
[2024-07-20 11:53] LABS: Anion Gap 13 (12-20); Blood Urea Nitrogen 30 mg/dL (9-16); Calcium 9.1 mg/dL (8.4-10.2); Carbon Dioxide 31 mmol/L (22-29); Chloride 106 mmol/L (96-108); Estimated Glomerular Filt Rate > 60; Glucose Random 98 mg/dL (60-115); Iron 89 mcg/dL (45-160); Percent Iron Saturation 33 % (15-50); Potassium 4.4 mmol/L (3.3-5.1); Sodium 146 mmol/L (135-145); Total Iron Binding Capacity 269 mcg/dL (228-428); Unsaturated Iron Binding 180 ug/dL
[2024-07-20 12:22] LABS: Folate 4.7 ng/mL (> or = 4.0); Vitamin B12 292 pg/mL (200-900)
== END 2024-07-20 09:02 | disposition home or self-care (01) ==
LOC: HO.WFDLDS 09:01
PROVIDERS: Visit Provider Family Medicine
DX: Z00.00 Encounter for general adult medical examination without abnormal findings (principal); D64.9 Anemia, unspecified; E53.8 Deficiency of other specified B group vitamins
CPT/HCPCS: 36415; 80048; 82607; 82746; 83540; 85025; 85045

== ENCOUNTER 2024-08-01 13:44 | Outpatient (AMB) | payer MEDICARE, SELFPAY ==
--- NOTE | 2024-08-01 13:50 | MHC.PC.OV ---
Vital Signs 08/01/24 14:01 Height 5 ft 11 in Weight 303 lb 8 oz BMI 42.3 BP 116/78 Blood Pressure Location Lt brachial Position Sitting Respiration 16 Pulse 62 Pulse Source Pulse Oximeter Temp 97.9 F Temp Source Temporal Artery Scan Pulse Oximetry (%) 95 Oxygen Delivery Method Room Air Intake Visit Reasons: f/u htn, mild anemia, chronic conditions Intake Note: Karmen presents in the office today forf a follow up to hypertension, mild anemia etc. Allergies topical bacitricin Allergy (Mild, Uncoded 08/01/24 13:56) rash Tobacco use date assessed: 08/01/24 Fall risk assessment: No Falls in past year Last assessed Fall Risk: 08/01/24 Dental Screening Dental Screen Date: 08/01/24 Did you have a dental visit in the last 12 months?: Yes Did you have a dental problem in the last 6 months where you did not have access to dental care?: No Was dental information given to patient?: Patient has dentist HPI f/u htn, mild anemia, chronic conditions HPI Details 78 y/o male presents to f/u hypertension, frequent PVCs and also parotid mass/cysts. Also f/u on mild anemia. Referred to ENT regarding complex cysts. Recent CT shows incidental 5 x 4 exophytic mass of left kidney. I have ordered an renal ultrasound BP today 116/78, 62p. Mild anemia has been improving. [facility] Medical History FH: cholecystectomy Arthritis of right ankle Prostate cancer High blood pressure Surgical History History of cardiac cath History of bilateral knee replacement History of carpal tunnel surgery History of ankle surgery Family History Mother Cardiovascular disease Cancer Father High blood pressure Social History (Updated 08/01/24 @ 13:59 by Jodie Cabrera MA) Household Members: Spouse Housing: Other Housing Other:: cottage Are you a primary director day care center to a significant other at home: Yes Do you presently have visiting nurse or other home services: No 75 years or older and lives alone: No Alcohol intake: current Alcohol intake frequency: holidays/special occasions only Patient Tobacco Use Status: Never used Tobacco e-Cigarette/Vaping Use: Never Used Second Hand Smoke Exposure: No Special nikkie needs: Yes Special nikkie accommodation details: [facility] service: No Current occupational status: retired Cognitive needs: No Hearing needs: Yes Vision needs: Yes (patient wears glasses) Questionnaire PHQ-9 Over the last 2 weeks, how often have you been bothered by any of the following problems? 1. Little interest or pleasure in doing things: not at all 2. Feeling down, depressed, or hopeless: not at all 3. Trouble falling or staying asleep, or sleeping too much: not at all 4. Feeling tired or having little energy: not at all 5. Poor appetite or overeating: not at all 6. Feeling bad about yourself - or that you are a failure or have let yourself or your family down: not at all 7. Trouble concentrating on things, such as reading the newspaper or watching television: not at all 8. Moving or speaking so slowly that other people could have noticed. Or the opposite - being so fidgety or restless that you have been moving around a lot more than usual: not at all 9. Thoughts that you would be better off or of hurting yourself in some way: not at all Total score: 0 Depression Screening Interpretation: Negative Depression Screening Done: Yes [address]15[address] - PHQ-9 Billing: Patient declined-do not bill Source: Developed by Drs. Yusuf Perez, Kylah Wright, Tyler Paulson and colleagues, with an educational mamadou from [employer]. Thrive Questionnaire Date Thrive assessed: 08/01/24 I am a: Patient What is your living situation today?: I have a steady place to live Within the past 12 months, did the food you bought not last and you didn't have the money to get more?: Never true Within the past 12 months, did you worry whether your food would run out before you got money to buy more?: Never true Do you have trouble paying for medicines?: No Do you have trouble getting transportation to medical appointments?: No Do you have trouble paying your heating and electricity bill?: No Do you have trouble taking care of your child, family member or friend?: No Do you have trouble with day-to-day activities such as bathing, preparing meals, shopping, managing finances, etc.?: No Are you currently unemployed and looking for a job?: No Are you interested in more education?: No Please select the resources that you would like help with: None Currently or been in a relationship where the following occur: No concerns reported THRIVE Score: 0 AUDIT C Alcohol Use Questionnaire (AUDIT-C) 1. How often do you have a drink containing alcohol?: Monthly or less 2. How many drinks containing alcohol do you have on a typical day when you are drinking?: 1 or 2 3. How often do you have six or more drinks on one occasion?: Never Total Score: 1 Score Reviewed/Action Taken: No TRACE-7 AMB Questionnaire TRACE-7 Date TRACE - 7 assessed: 08/01/24 Feeling nervous, anxious, or on edge: 0 = Not at all Not being able to stop or control worryin = Not at all Worrying too much about different things: 0 = Not at all Trouble relaxin = Not at all Being so restless that it is hard to sit still: 0 = Not at all Becoming easily annoyed or irritable: 0 = Not at all Feeling afraid as if something awful might happen: 0 = Not at all Total TRACE-7 score (0-4 normal; 5-9 mild; 10-14 moderate; 15-21 severe): 0 Source: Developed by Drs. Yusuf Perez, Kylah Wright, Tyler Paulson and colleagues, with an educational mamadou from [employer]. TRACE-7 Assessment Billing TRACE-7 Assessment Tool: TRACE-7 Assessment 04370 Review of Systems Const Denies chills, Denies fatigue, Denies fever(s), Denies headache(s) and Denies weakness ENT Denies dizziness and Denies headache(s) Card Denies dyspnea Resp Denies cough, Denies dyspnea, Denies wheezing and Denies other (shortness of breath) Musc Denies numbness and Denies tingling Neuro Denies dizziness, Denies headache(s), Denies numbness, Denies tingling and Denies weakness Psych Denies anxiety and Denies depression Endo Denies fatigue Aller/Immun Denies wheezing Physical exam (Primary Care) Vital Signs: Last Vital Signs Temp 97.9 F 08/01/24 14:01 Pulse 62 08/01/24 14:01 Resp 16 08/01/24 14:01 BP 116/78 08/01/24 14:01 Pulse Ox 95 08/01/24 14:01 Oxygen Delivery Method Room Air 08/01/24 14:01 BMI result Body Mass Index 42.3 Tobacco/Smoking Status: Tobacco use Status Tobacco use date assessed 08/01/24 08/01/24 14:03 Patient Tobacco Use Status Never used Tobacco 08/01/24 13:59 e-Cigarette/Vaping Use Never Used 08/01/24 13:59 PHQ-9: PHQ-9 Score PHQ-9: Total score 0 08/01/24 14:03 Depression Screening Interpretation: Negative Thrive Assessment: Date of Thrive Assessment Date Thrive assessed 08/01/24 08/01/24 14:03 Currently or been in a relationship where the following occur: No concerns reported Const General: well developed; No acute distress Nutritional Appearance: well nourished Orientation/consciousness: patient oriented x3 HENMT Head: Yes normocephalic and Yes atraumatic Eyes General: appearance normal, both eyes and all related structures Pupils: Equal, round and reactive pupils present EOM: EOMs intact bilaterally Resp Effort & Inspection: normal respiratory effort Auscultation: clear to auscultation bilaterally Cardio Rate: regular rate Rhythm: regular rhythm Heart sounds: S1 normal heart sound present, S2 normal heart sound present, no gallops, no murmurs and no rubs Neuro General: patient oriented x3 and gait normal Cranial nerves: Yes Equal, round and reactive pupils present Psych Affect: normal affect Coding Level of Care Code Est Pt Level 4 (39964) Diagnoses High blood pressure I10 Mild anemia D64.9 Parotid cyst K11.6 Left renal mass N28.89 PVC (premature ventricular contraction) I49.3 Obstructive sleep apnea G47.33 Additional Codes TRACE-7 Assessment Billing - TRACE-7 Assessment Tool: TRACE-7 Assessment 30034 ([id number]) Assessment & Plan Assessment & Plan (1) High blood pressure: Code(s): I10 - Essential (primary) hypertension Category: Medical Plan: Blood?pressure?is?well?controlled.??Goal?is?less?than?140/90 Continue?current?medication (2) Mild anemia: Code(s): D64.9 - Anemia, unspecified Category: Medical Plan: Improving Will?recheck?prior?to?next?visit?and?review?with?patient (3) Parotid cyst: Code(s): 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 He?is?calling?ENT?to?see?if?he?gets?sooner?appointment Mass?seems?to?get?larger?and?smaller?but?does?not?continue?to?enlarge. 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 (5) PVC (premature ventricular contraction): Code(s): I49.3 - Ventricular premature depolarization Category: Medical Plan: Followed?by?cardiology ?Hebert?suspects?that?his?frequent?PVCs?may?be?due?to?untreated?GONZALEZ He?has?an?appointment?coming?up?with?sleep?medicine Also?has?mild?anemia?which?may?contribute - this?seems?to?be?resolving Follow-up?with?sleep?medicine Follow-up?with?Cardiology (6) Obstructive sleep apnea: Code(s): G47.33 - Obstructive sleep apnea (adult) (pediatric) Category: Medical Plan: As?above,?patient?has?an?upcoming?appointment
[2024-08-01 14:01] VITALS: BP 116/78; PULSE 62; RESP 16; TEMP 36.6; O2SAT 95; BMI 42.3
--- OUTSIDE RECORDS SUMMARY | 2024-08-01 14:54 | XMS_ITS | Encounter Summary ---
Author Organization [facility] Address [address] [place] [address] Care Team Providers Care Healthcare Account Manager Name Role Phone Bill Weiss MD Primary Care Provider Encounter Details Date Type Department Care Team (Late st Contact Info) Description 12/23/2020 Erroneous Encounter OAH CONVERSION DEPT [address] [place] [address] Richmond Carrington III, MD [address] [place] [address] Social History Tobacco Use Types Packs/Day Years [...] on filedocumented in this encounter Care Teams Healthcare Account Manager Relationship Specialty Start Date End Date Bill Weiss MD [address] [place] [address] PCP - General Internal Medicine 02/28/20 documented as of this encounter
--- OUTSIDE RECORDS SUMMARY | 2024-08-01 14:54 | XMS_ITS | Encounter Summary ---
Author Organization [facility] Address [address] [place] [address] Care Team Providers Care Rhia Name Role Phone Bill Weiss MD Primary Care Provider [phone] Encounter Details Date Type Department Care Team ([facility] st Contact Info) Description 01/09/2021 Procedure Pass [facility], Radiology (CT Scan) [address] [place] [address] Social History Tobacco Use Types Packs/Day Years [...] on filedocumented in this encounter Care Teams Rhia Relationship Specialty Start Date End Date Bill Weiss MD [address] [place] [address] PCP - General 01/09/21 documented as of this encounter
--- OUTSIDE RECORDS SUMMARY | 2024-08-01 14:54 | XMS_ITS | Clinical Summary ---
Author Organization [facility] Address [address] [place] [address] Care Team Providers Care Nightclub Manager Name Role Phone Bill Weiss MD Primary Care Provider [phone] Allergies Active Allergy Reactions Criticality Noted Date [...] this topic Insurance BELEM TATE Care Teams Nightclub Manager Relationship Specialty Start Date End Date Bill Weiss MD [address] [place] [address] PCP - General 01/09/21
--- OUTSIDE RECORDS SUMMARY | 2024-08-01 14:54 | XMS_ITS | Encounter Summary ---
Author Organization [facility] Address [address] [place] [address] Care Team Providers Care Grinding Wheel Inspector Name Role Phone Bill Weiss MD Primary Care Provider [phone] Encounter Details Date Type Department Care Team (Late st Contact Info) Description 02/27/2020 Lab Requisition [place] COVID-[address] [address] Yusuf Carson MD [address] [place], [place] [phone] Encounter for laboratory testing for COVID-19 virus [...] DETECTED Not Detected 02/28/2020 6:05 AM EST [facility] Comment: ADDITIONAL INFORMATION The CAM[facility]A COVID-19 RT-PCR Assay is Real-Time Reverse Linen Room Worker Polymerase Chain Reaction (tube heater-PCR) for the in vitro qualitative detection of three SARS-Cov-2 target sequences unique to the coronavirus disease 2019 (COVID-19). This is an Emergency Use Authorization (EUA) in vitro diagnostic (IVD) test that has been modified to include the Ooolala automated liquid handler. Its analytical performance characteristics have been determined by the real estate assistant and verified by [facility] in a manner consistent with CLIA [...] at the following links: For Healthcare Providers: https://www.fda.gov/media/922575/download For Patients: https://www.fda.gov/media/056406/download TEST LIMITATIONS Positive results are indicative of [...] system. For further details refer to the SelSaharaPath COVID-19 Combo Kit EUA submission (https://www.Crowd Sense.gov/media/685251/download). ----- Test performed by The [facility], [address] [place] [address] CLIA# [id number] ?[id number] ? Robert Butterfield M.D., Ph.D., [facility] [place], Clinical Container Finishing Inspector Microbiology Nasopharyngeal swab / Unknown 02/27/2020 9:18 AM EST 02/27/2020 9:18 AM EST Narrative [facility] - 02/28/2020 6:05 AM EST Performed at [facility], [address] [place] [address], [place] Lic 0695, CLIA [id number] Yusuf Carson MD MICROBIOLOGY - GENERAL ORDERAB LES Final Result [address] [address] documented in this encounter Visit Diagnoses Diagnosis Encounter for laboratory testing for COVID-19 virus documented in this encounter Care Teams Grinding Wheel Inspector Relationship Specialty Start Date End Date Bill Weiss MD [address] [place] [address] PCP - General Internal Medicine 02/28/20 documented as of this encounter
--- OUTSIDE RECORDS SUMMARY | 2024-08-01 14:54 | XMS_ITS | Encounter Summary ---
Author Organization [facility] Address [address] [place] [address] Care Team Providers Care Road Packer Operator Name Role Phone Bill Weiss MD Primary Care Provider [phone] Encounter Details Date Type Department Care Team (Late st Contact Info) Description 09/12/2020 Erroneous Encounter OAH CONVERSION DEPT [address] [place] [address] Provider, MD Kristin Social History Tobacco Use [...] on filedocumented in this encounter Care Teams Road Packer Operator Relationship Specialty Start Date End Date Bill Weiss MD [address] [place] [address] PCP - General Internal Medicine 02/28/20 documented as of this encounter
--- OUTSIDE RECORDS SUMMARY | 2024-08-01 14:54 | XMS_ITS | Encounter Summary ---
Author Organization [facility] Address [address] [place] [address] Care Team Providers Care Facilities Management Executive Name Role Phone Bill Weiss MD Primary Care Provider [phone] Encounter Details Date Type Department Care Team (Late st Contact Info) Description 03/12/2020 Lab Requisition [place] COVID-[address] [address] Yusuf Carson MD [address] [place], [place] [id number] Encounter for laboratory testing for COVID-19 virus [...] DETECTED Not Detected 03/13/2020 9:22 AM EST [facility] Comment: ADDITIONAL INFORMATION The [facility] COVID-19 RT-PCR Assay is Real-Time Reverse Aoc Aadc Operations Staff Officer Polymerase Chain Reaction (media production support manager-PCR) for the in vitro qualitative detection of three SARS-Cov-2 target sequences unique to the coronavirus disease 2019 (COVID-19). This is an Emergency Use Authorization (EUA) in vitro diagnostic (IVD) test that has been modified to include the [employer] automated liquid handler. Its analytical performance characteristics have been determined by the avionics mechanic and verified by [facility] in a manner consistent with CLIA [...] at the following links: For Healthcare Providers: https://www.fda.gov/media/433271/download For Patients: https://www.fda.gov/media/801644/download TEST LIMITATIONS Positive results are indicative of [...] system. For further details refer to the [employer] Collection SystemsPath COVID-19 Combo Kit EUA submission (https://www.Quest Online.gov/media/870471/download). ----- Test performed by [facility], [address] [place] [address] CLIA# [id number] ?[id number] ? Robert Butterfield M.D., Ph.D., [facility] [place], Clinical Clerical Production Worker Microbiology Nasopharyngeal swab / Unknown 03/12/2020 10:04 AM EST 03/12/2020 10:04 AM EST Narrative [facility] - 03/13/2020 9:22 AM EST Performed at [facility], [address] [place] [address], [place] Lic 0695, CLIA [id number] Yusuf Carson MD MICROBIOLOGY - GENERAL ORDERAB LES Final Result [address] [address] documented in this encounter Visit Diagnoses Diagnosis Encounter for laboratory testing for COVID-19 virus documented in this encounter Care Teams Facilities Management Executive Relationship Specialty Start Date End Date Bill Weiss MD [address] [place] [address] PCP - General Internal Medicine 02/28/20 documented as of this encounter
--- OUTSIDE RECORDS SUMMARY | 2024-08-01 14:54 | XMS_ITS | Encounter Summary ---
Author Organization [facility] Address [address] [place] [address] Care Team Providers Care Gas Burner Operator Name Role Phone Bill Weiss MD Primary Care Provider [phone] Encounter Details Date Type Department Care Team (Late st Contact Info) Description 10/16/2020 Erroneous Encounter OAH CONVERSION DEPT [address] [place] [address] Provider, MD Kristin Social History Tobacco Use [...] on filedocumented in this encounter Care Teams Gas Burner Operator Relationship Specialty Start Date End Date Bill Weiss MD [address] [place] [address] PCP - General Internal Medicine 02/28/20 documented as of this encounter
--- OUTSIDE RECORDS SUMMARY | 2024-08-01 14:54 | XMS_ITS | Clinical Summary ---
Author Organization [facility] Address [address] [place] [address] Care Team Providers Care Cut Pressman Name Role Phone Bill Weiss MD Primary Care Provider [phone] Social History Tobacco Use Types Packs/Day Years [...] Patients (1 - 1-dose 75+ series) 08/22/2019 COVID-19 Vaccine ( - 2023-2 5 season) 2023 Influenza Vaccine 10/20/2024 Hepatitis B Vaccines Aged Out No long er eligible based on patient's age to complete this topic Medical Devices Implanted Type Area Freight Inspector Device Identifier Shelf Expiration Date Model / Serial / Lot [id number] Lens Iol +20 Cezar Mod C Bcnvx 13mm 6mm Posterior Chamber 1 - [id number] Implanted:Qty: 1 on 03/04/2020 by [facility] [employer] [id number] / [id number] / Description:DCB00 [id number] Lens Iol +18.5 Cezar Mod C Bcnvx 13mm 6mm Posterior Chamber 1 - [id number] Implanted:Qty: 1 on 03/18/2020 by Yusuf Carson MD at [facility] [place] Lens [employer] [id number] / [id number] / Insurance AET[employer] MGD MEDICARE Care Teams Cut Pressman Relationship Specialty Start Date End Date Bill Weiss MD [address] [place] [address] PCP - General Internal Medicine 02/28/20
== END 2024-08-01 14:37 | disposition home or self-care (01) ==
LOC: HO.HMCFM 13:45
PROVIDERS: PCP Family Medicine; Visit Provider Family Medicine
DX: I10 Essential (primary) hypertension (principal); D64.9 Anemia, unspecified; K11.6 Mucocele of salivary gland; N28.89 Other specified disorders of kidney and ureter; I49.3 Ventricular premature depolarization; G47.33 Obstructive sleep apnea (adult) (pediatric)

== ENCOUNTER → 2024-08-01 13:44 | Outpatient (BNVA) | payer MEDICARE, SELFPAY | PROVIDERS: PCP Family Medicine; Visit Provider Family Medicine | DX: I10 Essential (primary) hypertension (principal); D64.9 Anemia, unspecified; K11.6 Mucocele of salivary gland; N28.89 Other specified disorders of kidney and ureter; I49.3 Ventricular premature depolarization; G47.33 Obstructive sleep apnea (adult) (pediatric) | CPT/HCPCS: 96127; 99212 ==

== ENCOUNTER 2024-08-08 14:28 | Outpatient (AMB) | payer MEDICARE, SELFPAY ==
--- NOTE | 2024-08-08 14:52 | A.OFFVIS_ITS ---
Vital Signs 08/08/24 14:54 Height 5 ft 11 in Weight 302 lb BMI 42.1 BP 110/70 Blood Pressure Location Rt brachial Position Sitting Pulse 71 Pulse Source Pulse Oximeter Pulse Oximetry (%) 96 Oxygen Delivery Method Room Air Intake Visit Reasons: Follow Up 6mo Intake Note: Patient presents 6 month follow up for sleep difficulties- sleep study in chart done on 04/20/24. Fertilizer Applicator Required: No Allergies topical bacitricin Allergy (Mild, Uncoded 08/10/24 11:37) rash Medication List - Last Reconciled 08/09/24 by DASH Rodriguez abiraterone 1,000 mg PO DAILY amlodipine 10 mg (2 x 5 mg) PO DAILY 90 days aspirin (Adult Aspirin Regimen) 81 mg PO DAILY cetirizine 10 mg PO DAILY PRN colchicine 0.6 mg PO DAILY PRN finasteride 5 mg PO DAILY fluticasone propionate 50 mcg/actuation (Flonase Allergy Relief) 1 spray intranasal Q12H 30 days lisinopril 20 mg PO DAILY 90 days metoprolol tartrate 25 mg PO BID Oxygen Home Use O2 at 2lpm via n/c while sleeping potassium citrate ER 20 mEq PO TID prednisone 5 mg PO DAILY rosuvastatin 10 mg PO DAILY tamsulosin 0.4 mg PO DAILY HPI Comments Details: 78-year old male presents for follow-up of home sleep study results showing severe obstructive sleep apnea and nocturnal hypoxemia. 04/20/2024, HST showed AHI 30.9 per hour, w/ O2 cinthia 54%, average SpO2 87% with SpO2 < 88% x's 224 minutes of 503.5 minute study). 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 Pt does not believe that he would be able to tolerate PAP therapy, as he previously did not tolerate it when in the hospital. He wonders if he could use O2 instead. He denies h/o asthma, COPD, or tobacco use. He endorses sleeping with his mouth open, and waking up with nasal congestion. He endorses SOB on exertion, such as when caring for his . He endorses chronic PVCs. He deneis orthopnea, but does sleep with his head slightly elevated. He had an interval ENT consult to evaluate the morning nasal congestion, and underwent XR barium swallow, which showed esophageal dismotility and mild esophageal compression which reports suggests is due to an aberrant right subclavian artery. Also underwent maxillary facial CT, results of which were unremarkable. 02/09/2024, Initial HPI: 78-yr-old male presents for new in-person patient visit for sleep consultation to eval for possible sleep apnea in setting of fatigue, morning fatigue, bradycardia, hypertension, reduced LV EF 46% on cardiac MRI. Pt notes he was recently started on metoprolol in hopes of improving his EF. He has noticed decreased BP, lower HR, but denies lightheadedness. He notes h/o sleep issues, gasping arousals at times, nocturia, and that when he had his knee replacement, he was tried on PAP tx but did not tolerate it. Sleep history questionnaire: Have you ever been diagnosed with a sleep disorder? No Have you ever had a sleep study in the past? No Have you ever been treated for a sleep disorder? states when he had his knee replacement, he was tried on PAP tx but did not tolerate it. Do you take medications/supplements for a sleep disorder? No Current sleep symptom questionnaire: Pt reports daytime sleepiness, fatigue, falls asleep within 30 seconds when he goes to bed- he attributes to his joints and life issues- is in rehab. Pt reports snoring, nocturnal gasping. Patient reports he has been having episodes of waking up gasping every few days. Pt reports nocturnal dry mouth. Pt reports nocturia- 3-5 x's per night and easily goes back to sleep. Pt reports nocturnal leg cramps- in the ankles, restless leg symptoms of urge to move, restlessness which starts around evening time. Pt reports ruminating thoughts at times- r/t his 's care at rehab. Pt denies family h/o similar sleep s/s. Sleep hygiene questionnaire: Occupation status: Retired Usual bedtime is at 8:30-9pm Usual time to fall asleep w/in 30 seconds Usual wake-up time 5am Usual out of bed time is at 7:30am Naps: Does not take naps Sleep environment: comfortable, quiet Electronic use in bedroom: TV Exercise: walking, housework Caffeine or other stimulants: drinking more tea than coffee- Usually 1 cup of tea or coffee per day. But sttaes can drink a pepsi later w/o difficulty sleeping. [facility] Medical History (Updated 08/10/24 @ 12:11 by Jac Cole MD) Obesity hypoventilation syndrome Morbid obesity Restrictive lung disease FH: cholecystectomy Arthritis of right ankle Prostate cancer High blood pressure Surgical History History of cardiac cath History of bilateral knee replacement History of carpal tunnel surgery History of ankle surgery Family History Mother Cardiovascular disease Cancer Father High blood pressure Social History Household Members: Spouse Housing: Other Housing Other:: cottage Are you a primary manager intensive care unit to a significant other at home: Yes Do you presently have visiting nurse or other home services: No 75 years or older and lives alone: No Alcohol intake: current Alcohol intake frequency: holidays/special occasions only Patient Tobacco Use Status: Never used Tobacco e-Cigarette/Vaping Use: Never Used Second Hand Smoke Exposure: No Special nikkie needs: Yes Special nikkie accommodation details: [facility] service: No Current occupational status: retired Cognitive needs: No Hearing needs: Yes Vision needs: Yes (patient wears glasses) Physical Exam Vital Signs: Last Vital Signs Pulse 71 08/08/24 14:54 BP 110/70 08/08/24 14:54 Pulse Ox 96 08/08/24 14:54 Oxygen Delivery Method Room Air 08/08/24 14:54 BMI result Body Mass Index 42.1 Const General: cooperative, no acute distress and alert Nutritional Appearance: obese Orientation/consciousness: patient oriented x3 Limitations: ambulation with walker HEENT Other: Mallampati stage 4 Resp Effort & Inspection: normal respiratory effort and able to speak in complete sentences Auscultation: clear to auscultation bilaterally Cardio Rate: regular rate Rhythm: abnormal rhythm regularly irregular Neuro General: patient oriented x3 and moves all extremities Psych Mental Status: mental status grossly normal Speech and movement: Clear speech present Attitude: cooperative Results Reviewed Results Reviewed: 02/28/2024 (at [facility]), XR esophagus barium swallow: Esophageal dysmotility. Nonobstructive, compression of the mid esophagus likely due to an aberrant right subclavian. 02/28/2024 (at [facility]), CT Maxilloface W/O Contrast IMPRESSION: Minimal scattered mucosal thickening and small mucous retention cysts in the sinuses as above. No fluid levels. Clear nasal cavity. No obstructing lesion. Assessment & Plan Assessment & Plan (1) Obstructive sleep apnea: Comment: severe GONZALEZ w/ nocturnal hypoxemia. Code(s): G47.33 - Obstructive sleep apnea (adult) (pediatric) Category: Medical Plan: As?above,?patient?has?an?upcoming?appointment (2) Nocturnal hypoxemia: Comment: PATIENT HAS INCREASED SHORTNESS OF BREATH AT NIGHT. HAS OBESITY RELATED HYPOVENTILATION SYNDROME IS A STRONG POSSIBILITY HE IS CANDIDATE TO HAVE NOCTURNAL HYPOXEMIA. Code(s): G47.34 - Idiopathic sleep related nonobstructive alveolar hypoventilation Category: Medical (3) PVC (premature ventricular contraction): Code(s): I49.3 - Ventricular premature depolarization Category: Medical Plan For GONZALEZ: Reviewed results of sleep study report, results c/w severe obstructive sleep apnea and nocturnal hypoxemia. Discussed complications a/w untreated GONZALEZ, including but not limited to CV, metabolic, and cognitive dysfunction. Thus, pt advised to start PAP tx., however pt declines trial of PAP tx at this time, as he does not believe he will tolerate it. Thus, will start pt on nocturnal supplemental O2 at 2lpm via n/c. Once pt has started on home O2, will check overnight pulse oximetry reading on O2 at 2 lpm via n/c to assess effectiveness of O2 on resolving nocturnal hypoxemia. Pt also advised to sleep w/ his hOB elevated- he has an adjustable sleep number bed, and is able to do this. We will also request pulmonology consult, for further evaluation of nocturnal hypoxemia, severe obstructive sleep apnea, to request their opinion on are recommended treatment plan as above. Pt to follow-up in 12 months or sooner prn. Orders: Referrals Pulmonology Referral G47.34 - Idiopathic sleep related nonobstructive alveolar hypoventilation, G47.33 - Obstructive sleep apnea (adult) (pediatric) Medications: New Oxygen Home Use O2 at 2lpm via n/c while sleeping 1 ea 0RF G47.34 - Idiopathic sleep related nonobstructive alveolar hypoventilation, G47.33 - Obstructive sleep apnea (adult) (pediatric) Coding Level of Care Code Est Pt Level 3 (87435) Diagnoses Obstructive sleep apnea G47.33 Nocturnal hypoxemia G47.34 PVC (premature ventricular contraction) I49.3
[2024-08-08 14:54] VITALS: BP 110/70; PULSE 71; O2SAT 96; BMI 42.1
--- OUTSIDE RECORDS SUMMARY | 2024-08-08 15:52 | XMS_ITS | Clinical Summary ---
Author Organization [facility] Address [address] [place] [address] Care Team Providers Care Learning Developer Name Role Phone Bill Weiss MD Primary Care Provider [phone] Social History Tobacco Use Types Packs/Day Years [...] this topic Medical Devices Implanted Type Area Smelter Operator Device Identifier Shelf Expiration Date Model / Serial / Lot [id number] Lens Iol +20 Cezar Mod C Bcnvx 13mm 6mm Posterior Chamber 1 - [id number] Implanted:Qty: 1 on 03/04/2020 by [facility] [employer] [id number] / [id number] / Description:DCB00 [id number] Lens Iol +18.5 Cezar Mod C Bcnvx 13mm 6mm Posterior Chamber 1 - [id number] Implanted:Qty: 1 on 03/18/2020 by Yusuf Carson MD at [facility] [place] Lens [employer] [id number] / Insurance AETNA MGD MEDICARE Care Teams Learning Developer Relationship Specialty Start Date End Date Bill Weiss MD [address] [place] [address] PCP - General Internal Medicine 02/28/20
--- OUTSIDE RECORDS SUMMARY | 2024-08-08 15:52 | XMS_ITS | Encounter Summary ---
Author Organization [facility] Address [address] [place] [address] Care Team Providers Care Retail Director Name Role Phone Bill Weiss MD Primary Care Provider [phone] Encounter Details Date Type Department Care Team (Late st Contact Info) Description 10/16/2020 Erroneous Encounter OAH CONVERSION DEPT [address] [place] [address] Provider, MD Kristin Social History Tobacco Use [...] on filedocumented in this encounter Care Teams Retail Director Relationship Specialty Start Date End Date Bill Weiss MD [address] [place] [address] PCP - General Internal Medicine 02/28/20 documented as of this encounter
--- OUTSIDE RECORDS SUMMARY | 2024-08-08 15:52 | XMS_ITS | Encounter Summary ---
Author Organization [facility] Address [address] [place] [address] Care Team Providers Care Disc Jockey Name Role Phone Bill Weiss MD Primary Care Provider Encounter Details Date Type Department Care Team (Late st Contact Info) Description 12/23/2020 Erroneous Encounter OAH CONVERSION DEPT [address] [place] [address] Richmond Carrington III, MD [address] [place] [address] Social History Tobacco Use Types Packs/Day Years [...] on filedocumented in this encounter Care Teams Disc Jockey Relationship Specialty Start Date End Date Bill Weiss MD [address] [place] [address] PCP - General Internal Medicine 02/28/20 documented as of this encounter
--- OUTSIDE RECORDS SUMMARY | 2024-08-08 15:52 | XMS_ITS | Encounter Summary ---
Author Organization [facility] Address [address] [place] [address] Care Team Providers Care Auriculotherapist Name Role Phone Bill Weiss MD Primary Care Provider [phone] Encounter Details Date Type Department Care Team (Late st Contact Info) Description 02/27/2020 Lab Requisition [place] COVID-[address] [address] Yusuf Carson MD [address] [place], [place] [id number] Encounter for laboratory testing for COVID-19 virus [...] DETECTED Not Detected 02/28/2020 6:05 AM EST [facility] Comment: ADDITIONAL INFORMATION The CAMILLA COVID-19 RT-PCR Assay is Real-Time Reverse Customs Collector Polymerase Chain Reaction (level vial curvature gauger-PCR) for the in vitro qualitative detection of three SARS-Cov-2 target sequences unique to the coronavirus disease 2019 (COVID-19). This is an Emergency Use Authorization (EUA) in vitro diagnostic (IVD) test that has been modified to include the Geni automated liquid handler. Its analytical performance characteristics have been determined by the system auditor and verified by [facility] in a manner consistent with CLIA [...] at the following links: For Healthcare Providers: https://www.fda.gov/media/251789/download For Patients: https://www.fda.gov/media/230816/download TEST LIMITATIONS Positive results are indicative of [...] system. For further details refer to the TraityPath COVID-19 Combo Kit EUA submission (https://www.natue.gov/media/960825/download). ----- Test performed by [facility], [address] [place] [address] CLIA# [id number] ?[id number] ? Robert Butterfield M.D., Ph.D., [facility], Clinical Kiln Door Builder Microbiology Nasopharyngeal swab / Unknown 02/27/2020 9:18 AM EST 02/27/2020 9:18 AM EST Narrative [facility] - 02/28/2020 6:05 AM EST Performed at [facility], [address] [place] [address], [place] Lic 0695, CLIA [id number] Yusuf Carson MD MICROBIOLOGY - GENERAL ORDERAB LES Final Result [address] [address] documented in this encounter Visit Diagnoses Diagnosis Encounter for laboratory testing for COVID-19 virus documented in this encounter Care Teams Auriculotherapist Relationship Specialty Start Date End Date Bill Weiss MD [address] [place] [address] PCP - General Internal Medicine 02/28/20 documented as of this encounter
--- OUTSIDE RECORDS SUMMARY | 2024-08-08 15:52 | XMS_ITS | Encounter Summary ---
Author Organization [facility] Address [address] [place] [address] Care Team Providers Care Colleter Name Role Phone Bill Weiss MD Primary Care Provider [phone] Encounter Details Date Type Department Care Team (Late st Contact Info) Description 09/12/2020 Erroneous Encounter OAH CONVERSION DEPT [address] [place] [address] Provider, MD Kristin Social History Tobacco Use [...] on filedocumented in this encounter Care Teams Colleter Relationship Specialty Start Date End Date Bill Weiss MD [address] [place] [address] PCP - General Internal Medicine 02/28/20 documented as of this encounter
--- OUTSIDE RECORDS SUMMARY | 2024-08-08 15:52 | XMS_ITS | Clinical Summary ---
Author Organization [employer] [facility] Address [address] [place] [address] Care Team Providers Care Can Intake Worker Name Role Phone Bill Weiss MD Primary Care Provider [phone] Allergies Active Allergy Reactions Criticality Noted Date [...] this topic Insurance BELEM TATE Care Teams Can Intake Worker Relationship Specialty Start Date End Date Bill Weiss MD [address] [place] [address] PCP - General 01/09/21
--- OUTSIDE RECORDS SUMMARY | 2024-08-08 15:52 | XMS_ITS | Encounter Summary ---
Author Organization [facility] Address [address] [place] [address] Care Team Providers Care Checkman Name Role Phone Bill Weiss MD Primary Care Provider [phone] Encounter Details Date Type Department Care Team ([facility] st Contact Info) Description 01/09/2021 Procedure Pass [facility], Radiology (CT Scan) [address] [place] [address] Social History Tobacco Use Types Packs/Day Years [...] on filedocumented in this encounter Care Teams Checkman Relationship Specialty Start Date End Date Bill Weiss MD [address] [place] [address] PCP - General 01/09/21 documented as of this encounter
--- OUTSIDE RECORDS SUMMARY | 2024-08-08 15:52 | XMS_ITS | Encounter Summary ---
Author Organization [facility] Address [address] [place] [address] Care Team Providers Care Technical Fellow Name Role Phone Bill Weiss MD Primary Care Provider [phone] Encounter Details Date Type Department Care Team (Late st Contact Info) Description 03/12/2020 Lab Requisition [place] COVID-[address] [address] Yusuf Carson MD [address] [place], [place] [id number] Encounter for laboratory testing for COVID-19 virus [...] DETECTED Not Detected 03/13/2020 9:22 AM EST [facility] Comment: ADDITIONAL INFORMATION The [facility] COVID-19 RT-PCR Assay is Real-Time Reverse Probe Operator Polymerase Chain Reaction (corporate operations compliance manager-PCR) for the in vitro qualitative detection of three SARS-Cov-2 target sequences unique to the coronavirus disease 2019 (COVID-19). This is an Emergency Use Authorization (EUA) in vitro diagnostic (IVD) test that has been modified to include the Cue automated liquid handler. Its analytical performance characteristics have been determined by the director child abuse therapy and verified by [facility] in a manner consistent with CLIA [...] at the following links: For Healthcare Providers: https://www.fda.gov/media/044184/download For Patients: https://www.fda.gov/media/898905/download TEST LIMITATIONS Positive results are indicative of [...] system. For further details refer to the ID90TPath COVID-19 Combo Kit EUA submission (https://www.MedeFile International.gov/media/602652/download). ----- Test performed by [facility] for [employer] [facility], [address] [place] [address] CLIA# [id number] ?[id number] ? Robert Butterfield M.D., Ph.D., [facility], Clinical Roll Forming Machine Operator Microbiology Nasopharyngeal swab / Unknown 03/12/2020 10:04 AM EST 03/12/2020 10:04 AM EST Narrative [facility] - 03/13/2020 9:22 AM EST Performed at [facility], [address] [place] [address], [place] Lic 0695, CLIA [id number] Yusuf Carson MD MICROBIOLOGY - GENERAL ORDERAB LES Final Result [address] [address] documented in this encounter Visit Diagnoses Diagnosis Encounter for laboratory testing for COVID-19 virus documented in this encounter Care Teams Technical Fellow Relationship Specialty Start Date End Date Bill Weiss MD [address] [place] [address] PCP - General Internal Medicine 02/28/20 documented as of this encounter
== END 2024-08-08 15:45 | disposition home or self-care (01) ==
LOC: HO.HSMS 14:29
PROVIDERS: PCP Family Medicine; Visit Provider Nurse Practitioner Family
DX: G47.33 Obstructive sleep apnea (adult) (pediatric) (principal); G47.34 Idiopathic sleep related nonobstructive alveolar hypoventilation; I49.3 Ventricular premature depolarization
CPT/HCPCS: 99213

== ENCOUNTER → 2024-08-08 14:28 | Outpatient (BNVA) | payer MEDICARE, SELFPAY | PROVIDERS: PCP Family Medicine; Visit Provider Nurse Practitioner Family | DX: G47.33 Obstructive sleep apnea (adult) (pediatric) (principal); G47.34 Idiopathic sleep related nonobstructive alveolar hypoventilation; I49.3 Ventricular premature depolarization | CPT/HCPCS: 99212 ==

== ENCOUNTER 2024-08-10 10:28 | Outpatient (REF) | payer MEDICARE, SELFPAY ==
[2024-08-10 12:20] LABS: MANUAL DIFF FLAG NO
[2024-08-10 12:24] LABS: Venous Blood Gas Refer to POC result
[2024-08-10 12:25] LABS: Basophils Percent Auto 0.3 % (0-2); Eosinophils Absolute Auto 0.1 X10*3/uL (0.0-0.4); Hematocrit 42.5 % (42.0-52.0); Hemoglobin 13.5 g/dl (14.0-18.0); Imm Gran Abs Auto 0.04 X10*3/uL (0.00-0.03); Imm Gran Pct Auto 0.6 % (0.0-0.4); Lymphocytes Absolute Auto 0.9 X10*3/uL (1.2-4.9); Lymphocytes Percent Auto 12.6 % (20-40); Mean Corpuscular HGB Conc 31.8 g/dl (31.0-36.0); Mean Corpuscular Hemoglobin 26.6 pg (27.0-33.0); Mean Corpuscular Volume 83.8 fL (80.0-98.0); Monocytes Absolute Auto 0.7 X10*3/uL (0.1-1.2); Monocytes Percent Auto 9.4 % (2-11); Neutrophils Absolute Auto 5.4 x10*3/uL (2.0-8.3); Neutrophils Percent Auto 76.1 % (45-73); Platelet Count 173 X10*3/uL (160-400); Red Blood Count 5.07 X10*6/uL (4.60-5.80); Red Cell Distribution Width 16.7 % (11.0-16.0); VBG Base Excess 6.2 mmol/L; VBG HCO3 30 mmol/L (22-26); VBG pCO2 44 mmHg; VBG pH 7.45 (7.32-7.43); VBG pO2 30 mmHg; White Blood Count 7.1 X10*3/uL (4.8-10.8)
--- OUTSIDE RECORDS SUMMARY | 2024-08-10 12:26 | XMS_ITS | Encounter Summary ---
Author Organization [facility] Address [address] [place] [address] Care Team Providers Care Cafe Server Name Role Phone Bill Weiss MD Primary Care Provider [phone] Encounter Details Date Type Department Care Team (Late st Contact Info) Description 10/16/2020 Erroneous Encounter [facility] CONVERSION DEPT [address] [place] [address] Provider, MD Kristin Social History Tobacco Use [...] on filedocumented in this encounter Care Teams Cafe Server Relationship Specialty Start Date End Date Bill Weiss MD [address] [place] [address] PCP - General Internal Medicine 02/28/20 documented as of this encounter
--- OUTSIDE RECORDS SUMMARY | 2024-08-10 12:26 | XMS_ITS | Encounter Summary ---
Author Organization [facility] Address [address] [place] [address] Care Team Providers Care Mud Engineer Name Role Phone Bill Weiss MD Primary Care Provider [phone] Encounter Details Date Type Department Care Team (Late st Contact Info) Description 09/12/2020 Erroneous Encounter [facility] CONVERSION DEPT [address] [place] [address] Provider, MD Kristin Social History Tobacco Use [...] on filedocumented in this encounter Care Teams Mud Engineer Relationship Specialty Start Date End Date Bill Weiss MD [address] [place] [address] PCP - General Internal Medicine 02/28/20 documented as of this encounter
--- OUTSIDE RECORDS SUMMARY | 2024-08-10 12:26 | XMS_ITS | Encounter Summary ---
Author Organization [facility] Address [address] [place] [address] Care Team Providers Care Grease Maker Name Role Phone Bill Weiss MD Primary Care Provider Encounter Details Date Type Department Care Team (Late st Contact Info) Description 12/23/2020 Erroneous Encounter [facility] CONVERSION DEPT [address] [place] [address] Richmond Carrington III, MD [address] [place] [address] Social History Tobacco Use Types Packs/Day Years [...] on filedocumented in this encounter Care Teams Grease Maker Relationship Specialty Start Date End Date Bill Weiss MD [address] [place] [address] PCP - General Internal Medicine 02/28/20 documented as of this encounter
--- OUTSIDE RECORDS SUMMARY | 2024-08-10 12:26 | XMS_ITS | Encounter Summary ---
Author Organization [facility] Address [address] [place] [address] Care Team Providers Care Wad Blanking Press Adjuster Name Role Phone Bill Weiss MD Primary Care Provider [phone] Encounter Details Date Type Department Care Team (Late st Contact Info) Description 02/27/2020 Lab Requisition [place] COVID-[address] [address] Yusuf Carson MD [address] [place], [place] [phone] Encounter for laboratory testing for COVID-19 virus [...] DETECTED Not Detected 02/28/2020 6:05 AM EST [facility] Comment: ADDITIONAL INFORMATION The CAMILLA COVID-19 RT-PCR Assay is Real-Time Reverse Pc Tech Polymerase Chain Reaction (tube operator-PCR) for the in vitro qualitative detection of three SARS-Cov-2 target sequences unique to the coronavirus disease 2019 (COVID-19). This is an Emergency Use Authorization (EUA) in vitro diagnostic (IVD) test that has been modified to include the DRESSBOOM automated liquid handler. Its analytical performance characteristics have been determined by the grocery checker and verified by [facility] in a manner consistent with CLIA [...] at the following links: For Healthcare Providers: https://www.fda.gov/media/096166/download For Patients: https://www.fda.gov/media/881148/download TEST LIMITATIONS Positive results are indicative of [...] system. For further details refer to the VMTurboPath COVID-19 Combo Kit EUA submission (https://www.MyCaliforniaCabs.com.gov/media/225477/download). ----- Test performed by The [facility] for [employer] [facility], [address] [place] [address] CLIA# [id number] ?[id number] ? Robert Butterfield M.D., Ph.D., [facility] [place], Clinical Singing Telegram Performer Microbiology Nasopharyngeal swab / Unknown 02/27/2020 9:18 AM EST 02/27/2020 9:18 AM EST Narrative [facility] - 02/28/2020 6:05 AM EST Performed at [facility], [address] [place] [address], [place] Lic 0695, CLIA [id number] Yusuf Carson MD MICROBIOLOGY - GENERAL ORDERAB LES Final Result [address] [address] documented in this encounter Visit Diagnoses Diagnosis Encounter for laboratory testing for COVID-19 virus documented in this encounter Care Teams Wad Blanking Press Adjuster Relationship Specialty Start Date End Date Bill Weiss MD [address] [place] [address] PCP - General Internal Medicine 02/28/20 documented as of this encounter
--- OUTSIDE RECORDS SUMMARY | 2024-08-10 12:26 | XMS_ITS | Clinical Summary ---
Author Organization [facility] Address [address] [place] [address] Care Team Providers Care Ship Surveyor Name Role Phone Bill Weiss MD Primary Care Provider [phone] Allergies Active Allergy Reactions Criticality Noted Date [...] this topic Insurance BELEM TATE Care Teams Ship Surveyor Relationship Specialty Start Date End Date Bill Weiss MD [address] [place] [address] PCP - General 01/09/21
--- OUTSIDE RECORDS SUMMARY | 2024-08-10 12:26 | XMS_ITS | Encounter Summary ---
Author Organization [facility] Address [address] [place] [address] Care Team Providers Care Sample Selector Name Role Phone Bill Weiss MD Primary Care Provider [phone] Encounter Details Date Type Department Care Team (Late st Contact Info) Description 03/12/2020 Lab Requisition [place] COVID-[address] [address] Yusuf Carson MD [address] [place], [place] [id number] Encounter for laboratory testing for COVID-19 virus [...] CAMILLA COVID-19 RT-PCR Assay is Real-Time Reverse Head Animal Keeper Polymerase Chain Reaction (online retailer-PCR) for the in vitro qualitative detection of three SARS-Cov-2 target sequences unique to the coronavirus disease 2019 (COVID-19). This is an Emergency Use Authorization (EUA) in vitro diagnostic (IVD) test that has been modified to include the MILI automated liquid handler. Its analytical performance characteristics have been determined by the division service manager and verified by [facility] in a manner consistent with CLIA [...] at the following links: For Healthcare Providers: https://www.fda.gov/media/218268/download For Patients: https://www.fda.gov/media/313532/download TEST LIMITATIONS Positive results are indicative of [...] system. For further details refer to the US BiologicPath COVID-19 Combo Kit EUA submission (https://www.SprainGo.gov/media/833234/download). ----- Test performed by The [facility] for [employer] [facility], [address] [place] [address] CLIA# [id number] ?[id number] ? Robert Butterfield M.D., Ph.D., [facility] [place], Clinical Parking Lot Attendant And Cashier Microbiology Nasopharyngeal swab / Unknown 03/12/2020 10:04 AM EST 03/12/2020 10:04 AM EST Narrative [facility] - 03/13/2020 9:22 AM EST Performed at [facility], [address] [place] [address], [place] Lic 0695, CLIA [id number] Yusuf Carson MD MICROBIOLOGY - GENERAL ORDERAB LES Final Result [address] [address] documented in this encounter Visit Diagnoses Diagnosis Encounter for laboratory testing for COVID-19 virus documented in this encounter Care Teams Sample Selector Relationship Specialty Start Date End Date Bill Weiss MD [address] [place] [address] PCP - General Internal Medicine 02/28/20 documented as of this encounter
--- OUTSIDE RECORDS SUMMARY | 2024-08-10 12:26 | XMS_ITS | Encounter Summary ---
Author Organization [facility] Address [address] [place] [address] Care Team Providers Care Metalworking Instructor Name Role Phone Bill Weiss MD Primary Care Provider [phone] Encounter Details Date Type Department Care Team ([facility] st Contact Info) Description 01/09/2021 Procedure Pass [facility], Radiology (CT Scan) [address] [place] [address] Social History Tobacco Use Types Packs/Day Years [...] on filedocumented in this encounter Care Teams Metalworking Instructor Relationship Specialty Start Date End Date Bill Weiss MD [address] [place] [address] PCP - General 01/09/21 documented as of this encounter
--- OUTSIDE RECORDS SUMMARY | 2024-08-10 12:26 | XMS_ITS | Clinical Summary ---
Author Organization [facility] Address [address] [place] [address] Care Team Providers Care Glue Jointer Operator Name Role Phone Bill Weiss MD Primary Care Provider [phone] Social History Tobacco Use Types Packs/Day Years [...] this topic Medical Devices Implanted Type Area Telephone Order Supervisor Device Identifier Shelf Expiration Date Model / Serial / Lot [id number] Lens Iol +20 [employer]ez[employer] Mod C Bcnvx 13mm 6mm Posterior Chamber 1 - [id number] Implanted:Qty: 1 on 03/04/2020 [facility] [employer] [employer] [id number] / [id number] / Description:DCB00 [id number] Lens Iol +18.5 [employer]ezar Mod C Bcnvx 13mm 6mm Posterior Chamber 1 - [id number] Implanted:Qty: 1 on 03/18/2020 by Yusuf Carson MD at [facility] [place] [employer] [id number] / [id number] / Insurance [employer] MGD MEDICARE Care Teams Glue Jointer Operator Relationship Specialty Start Date End Date Bill Weiss MD [address] [place] [id number] PCP - General Internal Medicine 02/28/20
[2024-08-10 13:02] LABS: Anion Gap 16 (12-20); Blood Urea Nitrogen 31 mg/dL (9-16); Calcium 9.4 mg/dL (8.4-10.2); Carbon Dioxide 27 mmol/L (22-29); Chloride 108 mmol/L (96-108); Estimated Glomerular Filt Rate 57; Glucose Random 125 mg/dL (60-115); Sodium 146 mmol/L (135-145)
== END 2024-08-10 10:29 | disposition home or self-care (01) ==
LOC: HO.LAB 10:28
PROVIDERS: PCP Family Medicine; Referring Provider Nurse Practitioner Family; Visit Provider Internal Medicine
DX: Z00.00 Encounter for general adult medical examination without abnormal findings (principal); J98.4 Other disorders of lung; E66.2 Morbid (severe) obesity with alveolar hypoventilation; D64.9 Anemia, unspecified
CPT/HCPCS: 36415; 80048; 82803; 85025; 94010; 94618; 99202

== ENCOUNTER 2024-08-10 10:28 | Outpatient (AMB) | payer MEDICARE, SELFPAY ==
--- OUTSIDE RECORDS SUMMARY | 2024-08-10 11:00 | XMS_ITS | Encounter Summary ---
Author Organization [facility] Address [address] [place] [address] Care Team Providers Care Publishing Director Name Role Phone Bill Weiss MD Primary Care Provider [phone] Encounter Details Date Type Department Care Team (Late st Contact Info) Description 09/12/2020 Erroneous Encounter OAH CONVERSION DEPT [address] [place] [address] Provider, MD Kristin Social History Tobacco Use [...] on filedocumented in this encounter Care Teams Publishing Director Relationship Specialty Start Date End Date Bill Weiss MD [address] [place] [address] PCP - General Internal Medicine 02/28/20 documented as of this encounter
--- OUTSIDE RECORDS SUMMARY | 2024-08-10 11:00 | XMS_ITS | Encounter Summary ---
Author Organization [facility] Address [address] [place] [address] Care Team Providers Care Controls Design Engineer Name Role Phone Bill Weiss MD Primary Care Provider [phone] Encounter Details Date Type Department Care Team (Late st Contact Info) Description 10/16/2020 Erroneous Encounter OAH CONVERSION DEPT [address] [place] [address] Provider, MD Kristin Social History Tobacco Use [...] on filedocumented in this encounter Care Teams Controls Design Engineer Relationship Specialty Start Date End Date Bill Weiss MD [address] [place] [address] PCP - General Internal Medicine 02/28/20 documented as of this encounter
--- OUTSIDE RECORDS SUMMARY | 2024-08-10 11:00 | XMS_ITS | Clinical Summary ---
Author Organization [facility] Address [address] [place] [address] Care Team Providers Care Meter And Service Line Inspector Name Role Phone Bill Weiss MD Primary Care Provider [phone] Social History Tobacco Use Types Packs/Day Years [...] this topic Medical Devices Implanted Type Area Supply Chain Buyer Device Identifier Shelf Expiration Date Model / Serial / Lot [id number] Lens Iol +20 Cezar Mod C Bcnvx 13mm 6mm Posterior Chamber 1 - [id number] Implanted:Qty: 1 on 03/04/2020 by [facility] [employer] DCB00 / [id number] / Description:DCB00 [id number] Lens Iol +18.5 Cezar Mod C Bcnvx 13mm 6mm Posterior Chamber 1 - [id number] Implanted:Qty: 1 on 03/18/2020 by Yusuf Carson MD at [facility] [place] Lens [employer] [id number] / [id number] / Insurance A[employer] MGD MEDICARE Care Teams Meter And Service Line Inspector Relationship Specialty Start Date End Date Bill Weiss MD [address] [place] [address] PCP - General Internal Medicine 02/28/20
--- OUTSIDE RECORDS SUMMARY | 2024-08-10 11:01 | XMS_ITS | Encounter Summary ---
Author Organization [facility] Address [address] [place] [address] Care Team Providers Care Weir Fisher Name Role Phone Bill Weiss MD Primary Care Provider Encounter Details Date Type Department Care Team (Late st Contact Info) Description 12/23/2020 Erroneous Encounter OAH CONVERSION DEPT [address] [place] [address] Richmond Carrington III, MD [address] [place] [address] Social History Tobacco Use Types Packs/Day Years [...] on filedocumented in this encounter Care Teams Weir Fisher Relationship Specialty Start Date End Date Bill Weiss MD [address] [place] [address] PCP - General Internal Medicine 02/28/20 documented as of this encounter
--- OUTSIDE RECORDS SUMMARY | 2024-08-10 11:01 | XMS_ITS | Encounter Summary ---
Author Organization [facility] Address [address] [place] [address] Care Team Providers Care Strategic Consultant Name Role Phone Bill Weiss MD Primary Care Provider [phone] Encounter Details Date Type Department Care Team (Late st Contact Info) Description 03/12/2020 Lab Requisition [place] COVID-[address] [address] Yusuf Carson MD [address] [place], [place] [id number] Encounter for laboratory testing for COVID-19 virus [...] DETECTED Not Detected 03/13/2020 9:22 AM EST [facility] Comment: ADDITIONAL INFORMATION The CAMILLA COVID-19 RT-PCR Assay is Real-Time Reverse Apprentice Photographer Polymerase Chain Reaction (newsroom intern-PCR) for the in vitro qualitative detection of three SARS-Cov-2 target sequences unique to the coronavirus disease 2019 (COVID-19). This is an Emergency Use Authorization (EUA) in vitro diagnostic (IVD) test that has been modified to include the Atrica automated liquid handler. Its analytical performance characteristics have been determined by the chute operator and verified by [facility] in a manner consistent with CLIA [...] at the following links: For Healthcare Providers: https://www.fda.gov/media/580209/download For Patients: https://www.fda.gov/media/858518/download TEST LIMITATIONS Positive results are indicative of [...] system. For further details refer to the G-Zero TherapeuticsPath COVID-19 Combo Kit EUA submission (https://www.Solar3D.gov/media/781349/download). ----- Test performed by [facility] for [employer] [facility], [address] [place] [address] CLIA# [id number] ?[id number] ? Robert Butterfield M.D., Ph.D., [facility], Clinical Log Deck Tender Microbiology Nasopharyngeal swab / Unknown 03/12/2020 10:04 AM EST 03/12/2020 10:04 AM EST Narrative [facility] - 03/13/2020 9:22 AM EST Performed at [facility], [address] [place] [address], [place] Lic 0695, CLIA [id number] Yusuf Carson MD MICROBIOLOGY - GENERAL ORDERAB LES Final Result [address] [address] documented in this encounter Visit Diagnoses Diagnosis Encounter for laboratory testing for COVID-19 virus documented in this encounter Care Teams Strategic Consultant Relationship Specialty Start Date End Date Bill Weiss MD [address] [place] [address] PCP - General Internal Medicine 02/28/20 documented as of this encounter
--- OUTSIDE RECORDS SUMMARY | 2024-08-10 11:01 | XMS_ITS | Encounter Summary ---
Author Organization [facility] Address [address] [place] [address] Care Team Providers Care Director Of Outpatient Services Name Role Phone Bill Weiss MD Primary Care Provider [phone] Encounter Details Date Type Department Care Team ([facility] st Contact Info) Description 01/09/2021 Procedure Pass [facility], Radiology (CT Scan) [address] [place] [address] Social History Tobacco Use Types Packs/Day Years [...] on filedocumented in this encounter Care Teams Director Of Outpatient Services Relationship Specialty Start Date End Date Bill Weiss MD [address] [place] [address] PCP - General 01/09/21 documented as of this encounter
--- OUTSIDE RECORDS SUMMARY | 2024-08-10 11:01 | XMS_ITS | Encounter Summary ---
Author Organization [facility] Address [address] [place] [address] Care Team Providers Care Bacteriology Technician Name Role Phone Bill Weiss MD Primary Care Provider [phone] Encounter Details Date Type Department Care Team (Late st Contact Info) Description 02/27/2020 Lab Requisition [place] COVID-[address] [address] Yusuf Carson MD [address] [place], [place] [phone] Encounter for laboratory testing for COVID-19 virus [...] DETECTED Not Detected 02/28/2020 6:05 AM EST [facility] Comment: ADDITIONAL INFORMATION The CAMILLA COVID-19 RT-PCR Assay is Real-Time Reverse Case Finisher Polymerase Chain Reaction (glazier metal furniture-PCR) for the in vitro qualitative detection of three SARS-Cov-2 target sequences unique to the coronavirus disease 2019 (COVID-19). This is an Emergency Use Authorization (EUA) in vitro diagnostic (IVD) test that has been modified to include the [employer]ets[employer] automated liquid handler. Its analytical performance characteristics have been determined by the presbyterian clergy and verified by [facility] in a manner consistent with CLIA [...] at the following links: For Healthcare Providers: https://www.fda.gov/media/361997/download For Patients: https://www.fda.gov/media/925940/download TEST LIMITATIONS Positive results are indicative of [...] system. For further details refer to the ShowkickerPath COVID-19 Combo Kit EUA submission (https://www.Nexio.gov/media/504658/download). ----- Test performed by The [facility] for [employer] [facility], [address] [place] [address] CLIA# [id number] ?[id number] ? Robert Butterfield M.D., Ph.D., [facility] [place] [facility], Clinical Hogshead Hooper Microbiology Nasopharyngeal swab / Unknown 02/27/2020 9:18 AM EST 02/27/2020 9:18 AM EST Narrative [facility] - 02/28/2020 6:05 AM EST Performed at [facility], [address] [place] [address], [place] Lic 0695, CLIA [id number] Yusuf Carson MD MICROBIOLOGY - GENERAL ORDERAB LES Final Result [address] [address] documented in this encounter Visit Diagnoses Diagnosis Encounter for laboratory testing for COVID-19 virus documented in this encounter Care Teams Bacteriology Technician Relationship Specialty Start Date End Date Bill Weiss MD [address] [place] [address] PCP - General Internal Medicine 02/28/20 documented as of this encounter
--- OUTSIDE RECORDS SUMMARY | 2024-08-10 11:01 | XMS_ITS | Clinical Summary ---
Author Organization [facility] Address [address] [place] [address] Care Team Providers Care Cover Seamer Name Role Phone Bill Weiss MD Primary Care Provider [phone] Allergies Active Allergy Reactions Criticality Noted Date [...] this topic Insurance BELEM TATE Care Teams Cover Seamer Relationship Specialty Start Date End Date Bill Weiss MD [address] [place] [address] PCP - General 01/09/21
[2024-08-10 11:10] VITALS: BP 118/86; PULSE 91; O2SAT 96; BMI 42.6
--- NOTE | 2024-08-10 11:10 | A.OFFVIS_ITS ---
Vital Signs 08/10/24 11:10 Height 5 ft 11 in Weight 305 lb 5.443 oz BMI 42.6 BP 118/86 Blood Pressure Location Lt brachial Position Sitting Pulse 91 Pulse Source Pulse Oximeter Pulse Oximetry (%) 96 Oxygen Delivery Method Room Air Intake Visit Reasons: Shortness of breath Intake Note: pt is here as a new patient, to talk about oxygen. 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 Sixth Grade Teacher Required: No Allergies topical bacitricin Allergy (Mild, Uncoded 08/10/24 11:37) rash Medication List - Last Reconciled 08/10/24 by Jac Cole MD abiraterone 1,000 mg PO DAILY amlodipine 10 mg (2 x 5 mg) PO DAILY 90 days aspirin (Adult Aspirin Regimen) 81 mg PO DAILY cetirizine 10 mg PO DAILY PRN cholecalciferol (vitamin D3) 50 mcg PO DAILY colchicine 0.6 mg PO DAILY PRN finasteride 5 mg PO DAILY fluticasone propionate 50 mcg/actuation (Flonase Allergy Relief) 1 spray intranasal Q12H 30 days lisinopril 20 mg PO DAILY 90 days metoprolol tartrate 25 mg PO BID Oxygen Home Use O2 at 2lpm via n/c while sleeping potassium citrate ER 20 mEq PO TID prednisone 5 mg PO DAILY rosuvastatin 10 mg PO DAILY tamsulosin 0.4 mg PO DAILY Do you need a note to return to daycare/school/sports/work: No HPI HPI Shortness of breath: Details: THIS 78 YEARS OLD VERY PLEASANT GENTLEMAN WHO IS MORBIDLY OBESE, IS BEING SEEN FOR THE 1ST TIME TO EVALUATE FOR NOCTURNAL AND DAYTIME HYPOXEMIA, HE HAS BEEN GROSSLY OVERWEIGHT FOR THE PAST MANY YEARS, HE HAS FREQUENT AWAKENING AT NIGHT. WAS EVALUATED FOR SLEEP APNEA WITH HOME-BASED SLEEP STUDY. ON 04/20/2024 THE HOME-BASED SLEEP STUDY WAS POSITIVE FOR OBSTRUCTIVE SLEEP APNEA WITH TOTAL SLEEP TIME AHI 31. ALSO HAD NOCTURNAL HYPOXEMIA WITH AVERAGE O2 SAT 87% THROUGHOUT THE NIGHT. 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 HE IS MORBIDLY OBESE. HE HAS CHRONIC ALLERGIC RHINITIS WITH INTERMITTENT SYMPTOMS. OF NASAL CONGESTION, USES FLONASE P.R.N.. HE DENIES ANY CHRONIC LUNG DISEASE BUT DOES HAVE INTERMITTENT COUGH, AND GETS SHORT OF BREATH ON WALKING. HE IS NOT USING ANY INHALER. HE DOES USE CETIRIZINE 10 MG ONCE A DAY AND ALSO FLONASE 2 SPRAY EACH NOSTRIL NEEDED. HE HAS HAD NO PULMONARY EVALUATION BEFORE. NO HISTORY OF SMOKING. [facility] Medical History (Updated 08/10/24 @ 12:11 by Jac Cole MD) Obesity hypoventilation syndrome Morbid obesity Restrictive lung disease FH: cholecystectomy Arthritis of right ankle Prostate cancer High blood pressure Surgical History History of cardiac cath History of bilateral knee replacement History of carpal tunnel surgery History of ankle surgery Family History Mother Cardiovascular disease Cancer Father High blood pressure Social History Household Members: Spouse Housing: Other Housing Other:: cottage Are you a primary career placement services counselor to a significant other at home: Yes Do you presently have visiting nurse or other home services: No 75 years or older and lives alone: No Alcohol intake: current Alcohol intake frequency: holidays/special occasions only Patient Tobacco Use Status: Never used Tobacco e-Cigarette/Vaping Use: Never Used Second Hand Smoke Exposure: No Special nikkie needs: Yes Special nikkie accommodation details: [facility] service: No Current occupational status: retired Cognitive needs: No Hearing needs: Yes Vision needs: Yes (patient wears glasses) Review of Systems Const All systems reviewed & are unremarkable except as noted in HPI and below Eyes Reports no additional complaints ENT Reports nasal congestion and Reports nasal discharge Card Denies chest pain, Denies irregular heart rhythm and Denies leg edema Resp Reports as per HPI GI Reports no additional complaints Reports no additional complaints Musc Reports no additional complaints Skin/Breast Reports system reviewed and no additional complaints, except as documented Neuro Reports no additional complaints Psych Reports no additional complaints Endo Reports no additional complaints Aller/Immun Reports no additional complaints Physical Exam Vital Signs: Last Vital Signs Pulse 91 08/10/24 11:10 BP 118/86 08/10/24 11:10 Pulse Ox 96 08/10/24 11:10 Oxygen Delivery Method Room Air 08/10/24 11:10 BMI result Body Mass Index 42.6 Const General: comfortable, no acute distress, alert and awake; No healthy appearing (HE IS MORBIDLY OBESE) Orientation/consciousness: patient oriented x3 HEENT Head: Yes normal to inspection General nose exam: No nasal polyps present and No nasal discharge present Face and sinus: Yes sinuses nontender Mouth: oropharynx normal Throat: Yes posterior oropharynx normal Eyes General: appearance normal, both eyes and all related structures Neck Neck: Yes normal visual inspection, Yes no lymphadenopathy, Yes trachea midline and Yes no JVD Thyroid: Thyroid normal Chest Chest palpation & inspection: normal inspection of the chest, normal palpation of entire chest wall and no tenderness Resp Other: PERCUSSION NOTE IS NOT. PERCEPTIBLE DUE TO THICK CHEST WALL BREATH SOUNDS ARE VERY DECREASED OVER THE LOWER HALF OF THE . LUNGS NO AUDIBLE WHEEZES RHONCHI OR CREPITATIONS. Cardio Palpation: normal PMI Rate: regular rate Rhythm: regular rhythm Heart sounds: no gallops and no murmurs GI Palpation (GI): Soft to palpation, Tenderness to palpation present (GI), No hepatosplenomegaly present, Palpable mass present and Other GI palpation findings present (ABDOMEN IS GROSSLY OBESE AND PROTUBERANT) Auscultation: normal bowel sounds Back/Spine/Pelvis Thoracic/Lumbar Spine: thoracic and lumbar spine normal to inspection Skin General skin exam: no rashes or lesions noted Neuro General: patient oriented x3 and no focal motor deficits Cranial nerves: Yes CN's II-XII intact bilaterally Extrem General: Yes normal to inspection, Yes no clubbing, cyanosis or edema and Yes no calf tenderness Psych Appearance: grossly normal and well kempt Speech and movement: Normal speech and movement present Office Procedures 6 Minute Walk Time:: 11:40 SPO2 % at rest: 97 Pulse at rest: 94 SPO2 % during excercise: 99 Pulse during excercise: 80 SPO2 % after excercise: 98 Pulse after excercise: 113 Distance in yards walked: 200 Paloma Score: 6 Performance Observations:: Karmen walked on level ground with the assistance of a cane to his R hand, he walked on room air maintaining his SPO2 97-99%. No supplemental O2 needed. [address] - 6 Minute Walk Spirometry Testing Spirometry Comments: Spirometry done in the office, Dr. Cole has the results results scanned to his chart. 86329- Spirometry Results Reviewed Results Reviewed: SPIROMETRY FVC 49 % FEV1 53% FEV1/FVC RATIO 79 FEF 25-75= 69% 6 MINUTES WALK , WALKED SLOW WITH CANE O2 SAT REMAINED, IN NORMAL RANGE. Assessment & Plan Assessment & Plan (1) Restrictive lung disease: Comment: THIS GENTLEMAN HAS MORBID OBESITY. HE HAS SEVERE RESTRICTIVE PULMONARY DISORDER HE HAS ABDOMINAL PROTUBERANCE. AND THIS IS THE MOST LIKELY CAUSE OF HIS RESTRICTIVE DISORDER. Code(s): J98.4 - Other disorders of lung Category: Medical Plan: HE IS ADVISED TO DO DEEP BREATHING EXERCISES, HE SHOULD TRY TO LOSE SOME WEIGHT BUT IT IS GOING TO BE DIFFICULT FOR HIM. WE NEED TO DO OVERNIGHT OXIMETRY RECORDING TO CHECK HIM FOR NOCTURNAL HYPOXEMIA. (2) Morbid obesity: Comment: MORBID OBESITY WITH BMI OF 42.6 Code(s): E66.01 - Morbid (severe) obesity due to excess calories Category: Medical Plan: PATIENT IS NOT AMENABLE TO ANY WEIGHT REDUCTION PROGRAM (3) Obesity hypoventilation syndrome: Comment: EXPECTED TO HAVE OBESITY RELATED HYPOVENTILATION SYNDROME. Code(s): E66.2 - Morbid (severe) obesity with alveolar hypoventilation Category: Medical Plan: .WEIGHT REDUCTION VENOUS BLOOD GAS STUDY. OVERNIGHT OXIMETRY RECORDING TO CHECK FOR HIS OXYGENATION. (4) Nocturnal hypoxemia: Comment: PATIENT HAS INCREASED SHORTNESS OF BREATH AT NIGHT. HAS OBESITY RELATED HYPOVENTILATION SYNDROME IS A STRONG POSSIBILITY HE IS CANDIDATE TO HAVE NOCTURNAL HYPOXEMIA. Code(s): G47.34 - Idiopathic sleep related nonobstructive alveolar hypoventilation Category: Medical Plan: AGAIN NOTED ABOVE HE SHOULD HAVE OVERNIGHT OXIMETRY RECORDING , AND THEN TREAT ACCORDINGLY. Orders: Orders AMB Spirometry Testing Today J98.4 - Other disorders of lung Overnight Pulse Oximetry Today E66.2 - Morbid (severe) obesity with alveolar hypoventilation, J98.4 - Other disorders of lung AMB 6 minute walk Today J98.4 - Other disorders of lung Venous Blood Gas Today E66.2 - Morbid (severe) obesity with alveolar hypoventilation, J98.4 - Other disorders of lung Coding Level of Care Code New Pt Level 4 (95242) Diagnoses Restrictive lung disease J98.4 Morbid obesity E66.01 Obesity hypoventilation syndrome E66.2 Nocturnal hypoxemia G47.34 CPT Codes Coding ([id number]) Spirometry - CPT: 81032- Spirometry ([id number])
[2024-08-10 11:54] VITALS: PULSE 94; O2SAT 97
== END 2024-08-10 11:57 | disposition home or self-care (01) ==
LOC: HO.HPS 10:29
PROVIDERS: PCP Family Medicine; Referring Provider Nurse Practitioner Family; Visit Provider Internal Medicine
DX: J98.4 Other disorders of lung (principal); E66.01 Morbid (severe) obesity due to excess calories; E66.2 Morbid (severe) obesity with alveolar hypoventilation; G47.34 Idiopathic sleep related nonobstructive alveolar hypoventilation
CPT/HCPCS: 94010; 94618; 99204

== ENCOUNTER 2024-09-14 11:15 | Outpatient (AMB) | payer MEDICARE, SELFPAY ==
[2024-09-14 11:25] VITALS: BP 120/80; PULSE 87; O2SAT 96; BMI 42.4
--- NOTE | 2024-09-14 11:25 | MHC.OFFVIS ---
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 Allergies topical bacitricin Allergy (Mild, Uncoded 09/14/24 11:52) rash Medication List - Last Reconciled 09/14/24 by Jac Cole MD abiraterone 1,000 mg PO DAILY amlodipine 10 mg (2 x 5 mg) PO DAILY 90 days aspirin (Adult Aspirin Regimen) 81 mg PO DAILY cetirizine 10 mg PO DAILY PRN cholecalciferol (vitamin D3) 50 mcg PO DAILY colchicine 0.6 mg PO DAILY PRN finasteride 5 mg PO DAILY fluticasone propionate 50 mcg/actuation (Flonase Allergy Relief) 1 spray intranasal Q12H 30 days lisinopril 20 mg PO DAILY 90 days metoprolol tartrate 25 mg PO BID Oxygen Home Use O2 at 2lpm via n/c while sleeping potassium citrate ER 20 mEq PO TID prednisone 5 mg PO DAILY rosuvastatin 10 mg PO DAILY tamsulosin 0.4 mg PO DAILY Do you need a note to return to daycare/school/sports/work: No HPI HPI Shortness of breath: Details: This 79 years old very pleasant gentleman with morbid obesity and diagnosis of obstructive sleep apnea/ nocturnal hypoxemia , Comes for follow-up. Due to his morbid obesity he does have restrictive lung disease, but does not have any chronic obstructive lung issues. He was found to have sleep apnea but can not use the CPAP. He is checked for nocturnal hypoxemia and does have O2 sat below 88% for 48 minutes. He claims that he is mouth breather, and his mouth does get dry especially in the later half of the night, and he may like to use the oxygen through the mask. He tries to. Sleep in the lateral position He can fall asleep easily but wakes up 3-4 times a night to go to the bathroom, due to his prostate issues. 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 care manager to a significant other at home: Yes Do you presently have visiting nurse or other home services: No 75 years or older and lives alone: No Alcohol intake: current Alcohol intake frequency: holidays/special occasions only Patient Tobacco Use Status: Never used Tobacco e-Cigarette/Vaping Use: Never Used Second Hand Smoke Exposure: No Special nikkie needs: Yes Special nikkie accommodation details: [employer] service: No Current occupational status: retired Cognitive needs: No Hearing needs: Yes Vision needs: Yes (patient wears glasses) Review of Systems Const All systems reviewed & are unremarkable except as noted in HPI and below Eyes Reports no additional complaints ENT Reports nasal congestion and Reports nasal discharge Card Denies chest pain, Denies irregular heart rhythm and Denies leg edema Resp Reports as per HPI GI Reports no additional complaints Reports no additional complaints Musc Reports no additional complaints Skin/Breast Reports system reviewed and no additional complaints, except as documented Neuro Reports no additional complaints Psych Reports no additional complaints Endo Reports no additional complaints Aller/Immun Reports no additional complaints Physical Exam Vital Signs: Last Vital Signs Pulse 87 09/14/24 11:25 BP 120/80 09/14/24 11:25 Pulse Ox 96 09/14/24 11:25 Oxygen Delivery Method Room Air 09/14/24 11:25 BMI result Body Mass Index 42.4 Const General: comfortable, no acute distress, alert and awake; No healthy appearing (HE IS MORBIDLY OBESE) Orientation/consciousness: patient oriented x3 HEENT Head: Yes normal to inspection General nose exam: No nasal polyps present and No nasal discharge present Face and sinus: Yes sinuses nontender Mouth: oropharynx normal Throat: Yes posterior oropharynx normal Eyes General: appearance normal, both eyes and all related structures Neck Neck: Yes normal visual inspection, Yes no lymphadenopathy, Yes trachea midline and Yes no JVD Thyroid: Thyroid normal Chest Chest palpation & inspection: normal inspection of the chest, normal palpation of entire chest wall and no tenderness Resp Other: PERCUSSION NOTE IS NOT PERCEPTIBLE DUE TO THICK CHEST WALL BREATH SOUNDS ARE VERY DECREASED OVER THE LOWER HALF OF THE . LUNGS NO AUDIBLE WHEEZES RHONCHI OR CREPITATIONS. Cardio Palpation: normal PMI Rate: regular rate Rhythm: regular rhythm Heart sounds: no gallops and no murmurs GI Palpation (GI): Soft to palpation, Tenderness to palpation present (GI), No hepatosplenomegaly present, Palpable mass present and Other GI palpation findings present (ABDOMEN IS GROSSLY OBESE AND PROTUBERANT) Auscultation: normal bowel sounds Back/Spine/Pelvis Thoracic/Lumbar Spine: thoracic and lumbar spine normal to inspection Skin General skin exam: no rashes or lesions noted Neuro General: patient oriented x3 and no focal motor deficits Cranial nerves: Yes CN's II-XII intact bilaterally Extrem General: Yes normal to inspection, Yes no clubbing, cyanosis or edema and Yes no calf tenderness Psych Appearance: grossly normal and well kempt Speech and movement: Normal speech and movement present Results Reviewed Results Reviewed: 08/11/24 SPIROMETRY IN THE OFFICE SHOWED PATTERN OF SEVERE RESTRICTIVE LUNG DISORDER Assessment & Plan Assessment & Plan (1) Morbid obesity: Comment: MORBID OBESITY WITH BMI OF 42.4 Code(s): E66.01 - Morbid (severe) obesity due to excess calories Category: Medical Plan: PATIENT WALKS WITH A WALKER, SLOW, NOT ABLE TO DO MUCH EXERCISE. IS TRYING TO WATCH HIS DIET. NOT EXPECTED TO LOSE. MUCH WEIGHT (2) Restrictive lung disease: Comment: THIS GENTLEMAN HAS MORBID OBESITY. HE HAS SEVERE RESTRICTIVE PULMONARY DISORDER Code(s): J98.4 - Other disorders of lung Category: Medical Plan: THIS RESTRICTIVE DISORDER IS MAINLY DUE TO HIS GROSS OBESITY, AND PROTUBERANT ABDOMEN. IS NOT EXPECTED CHANGE. HE IS ADVISED TO DO DEEP BREATHING EXERCISES. (3) Nocturnal hypoxemia: Comment: PATIENT HAS INCREASED SHORTNESS OF BREATH AT NIGHT. HAS OBESITY RELATED HYPOVENTILATION SYNDROME .IS A STRONG POSSIBILITY HE HAS NOCTURNAL HYPOXEMIA , CONFIRMED WITH OVERNIGHT OXIMETRY RECORDING Code(s): G47.34 - Idiopathic sleep related nonobstructive alveolar hypoventilation Category: Medical Plan: HE WOULD BENEFIT FROM USE OF OXYGEN WHICH IS BEING ORDERED. ADVISED TO USE O2 2 L/MINUTE THROUGHOUT THE NIGHT. PATIENT COMPLAINS THAT HE IS A MOUTH BREATHER AND MAY NOT GET ENOUGH OXYGEN VIA NASAL CANNULA. I HAVE ALSO ORDERED AN OXY MASK TO USE IF CANNULA DOES NOT WORK RIGHT (4) Sleep apnea: Comment: EXPECTED PATIENT DOES HAVE MODERATELY SEVERE OBSTRUCTIVE SLEEP APNEA. HOWEVER PATIENT COULD NOT USE CPAP BECAUSE HE HAS TO GET UP FREQUENTLY DURING THE NIGHT TO LOOK AFTER HER DISABLED . Code(s): G47.30 - Sleep apnea, unspecified Category: Medical Plan: AN ALTERNATIVE PATIENT WILL BE USING O2 AT NIGHT . Coding Level of Care Code Est Pt Level 3 (79010) Diagnoses Morbid obesity E66.01 Restrictive lung disease J98.4 Nocturnal hypoxemia G47.34 Sleep apnea G47.30
--- OUTSIDE RECORDS SUMMARY | 2024-09-14 13:29 | XMS_ITS | Data Portability ---
Author Organization [facility], [facility] Address [address] [place] [address] Care Team Providers Care Clean Out Driller Helper Name Role Phone DWAYNE ANSARI Primary Care Provider [phone] Assessment Encounter Date Assessment Date Assessment LastModified by Organization Details LastModified Time 12/14/2023 12/14/2023 Foot and Ankle Follow-up Patient Note CC/Diagnosis: Hx of right ankle and syndesmotic fusion by Dr. JIMMY Toledo in 2016 now with subtalar arthritis Symptom onset: > 1 year HPI: Karmen presents for routine follow-up. He was last seen 2 months ago. He had a corticosteroid injection in his sinus Tarsi area on the right in July of this year. At his last visit he was still having a positive response to that injection. Reports his symptoms have slowly began to return over the last couple of months. Now limiting his activity and bothering him daily. Pain rating is 4 out of 10. He is interested in a corticosteroid injection today. He was seen by Dr. Olivia yesterday for initial visit for right shoulder pain. He received a corticosteroid injection in his right shoulder and is having symptom relief. No other complaints today. Lives in [place], retired, primary chucker for with PD, multiple co-moribidities, non-DM, non-smoker, ambulates with double upright bracre and cane Past family history, medical history, social history, allergies, and review of systems has been reviewed, updated and are located in the patient's chart. PHYSICAL EXAM: Constitutional: Healthy appearing individual in no acute distress Psychiatric: Alert and oriented Respiratory: Unlabored breathing Lymphatic: No lymphadenopathy in the foot/ankle Skin: No open wounds CV: Palpable pedal pulses Neuro: Light touch grossly intact MSK: Focused examination of the right foot and ankle- On standing exam he has slight hindfoot valgus. Pes planus with loss of medial longitudinal arch. On seated exam his skin is intact. Surgical incisions are well-healed. There are no areas of skin ulceration or breakdown. Periarticular swelling of the lateral hindfoot. Tender in the sinus Tarsi area of the subtalar joint. Nontender over the anterior ankle. No ankle range of motion. Limited hindfoot range of motion. Compensatory dorsiflexion and plantarflexion to the midfoot. Motor exam- intact dorsiflexion/plant arflexion Sensory exam- reports sensation intact to light touch SP/DP/S/S/T distributions Palpable DP/PT pulses, foot warm and well perfused, appropriate capillary refill Calf is soft, supple, non-tender IMAGING: Prior WB XR right ankle and foot reviewed. Status post right ankle and syndesmotic fusion. Hindfoot valgus with subtalar degenerative change. No acute bony abnormality. ASSESSMENT: Hx of right ankle + syndesmotic fusion 2015 (Dr. JIMMY Toledo, [place]) with right subtalar arthritis. PLAN: We discussed the diagnosis, treatment to date, and the plan moving forward. Overall doing well. Previously had a positive response to a right subtalar corticosteroid injection. Interested in 1 today. Discussed the risk, benefits and alternatives. He tolerated the procedure well. Continue using supportive shoes and double upright brace. He would like to schedule follow-up for a repeat corticosteroid injection in the future. Plan to see him back in 4 months. No x-rays at that visit. Follow-up sooner if any issues. If he is still having symptom relief in 4 months he may first that visit back. Patient agrees with plan, all questions answered. [email or web address] Not available 12/14/2023 13:05:31 03/30/2024 03/30/2024 Karmen presents for a right subtalar joint corticosteroid injection. Last seen in November. Reports he had at least 2 months of symptom relief. Pain is worsened in February. Continues to care for his with Parkinson disease who is on hospice. He is interested in a corticosteroid injection today. Risk, benefits, alternatives discussed. He tolerated the procedure well. See note for full detail. Plan to see him back on an as-needed basis moving forward. Patient agrees to the plan, all questions answered. [email or web address] Not available 03/30/2024 14:58:53 Plan of Treatment Reminders Order Date Submit Date Provider Last Modified By Organization Details Last Modified Time Details Appointments RECHECK 15 2024 03:30P M Samson Torres PA-C Not available Not available Not available Lab None recorded . Referral None recorded . Procedures None recorded . Surgeries None recorded . Imaging None recorded . Medication Orders None recorded . Patient TargetsNo targets recorded. Patient InstructionsNo instructions recorded. Reason for Referral None Reported. Results Created Date Observation Date Name Description Value Unit Range Abnormal Flag Note LastModifiedBy Organization Detail LastModifiedTime 12/13/19 24 12/13/2023 XR, cervi jeanna spine , 1 view [email or web address]:/ [email or web address] ?Encry pted=s hAaTro YD8dLq bEUv6g %2BXZw aYqtaq 0bqfl% 2Fg9IQ a4ajBk vP9nXo QUaueC m3YtLR FvZl [place] HZtai3 9m1139 AC0Kqa nqAUae gKiQtr MwF INTERFACE [facility] [address], [place], [address], 12/13/2023 13:41:03 12/13/19 24 12/13/2023 XR, cervi jeanna spine , 1 view [email or web address]:/ [email or web address] ?Encry pted=s hAaTro YD8dLq bEUv6g %2BXZw aYqtaq 0bqfl% 2Fg9IQ a4ajBk vP9nXo QUaueC m3YtLR FvZl JJ8mAn HZtai3 6d8944 AC0Kqa nqAUae gKiQtr MwF INTERFACE [facility] [address], [place], [address], 12/13/2023 13:41:05 12/13/19 24 12/13/2023 XR, anjana jamie, 2 or more view http:/ [email or web address] ?Encry pted=s hAaTro YD8dLq bEUv6g %2BXZw aYqtaq 0bqfl% 2Fg9IQ a4ajBk vP9nXo QUaueC m3YtLR FvZlgJ JJ8mAn HZtai3 6v2075 AC0Kqa nqAUae lKiQtr MwF INTERFACE [employer] [facility] [address], [place], [address], 12/13/2023 13:44:17 12/13/19 24 12/13/2023 XR, shoul jamie, 2 or more view http:/ [email or web address] ?Encry pted=s hAaTro YD8dLq bEUv6g %2BXZw aYqtaq 0bqfl% 2Fg9IQ a4ajBk vP9nXo QUaueC m3YtLR FvZlgJ JJ8mAn HZtai3 7z4801 AC0Kqa nqAUae lKiQtr MwF INTERFACE [employer] [facility] [address], [place], [address], 12/13/2023 13:44:18 01/05/20 24 09/21/2022 NM, bone marro w scan, whole body No observ ation record ed. BARCODE Not Available 2023 08:47:27 Result Notes None recorded. Problems Name Problem SNOMED Code Status Onset Date Resolution Date Notes Provider Name and Address Organization Details Recorded Time Localized, primary osteoarthritis of the ankle and/or foot 563007925 Active 2023 Raciel Adrian MD [address], [place], [address], [facility] 12:24:58 Problem Notes None recorded. Procedures Surgical History Date Name Laterality Status Provider Name and Address Organization Details Recorded Time 5 Sports Shoulder 4&1 completed Samson Torres PA-C [address], [place], [address], [facility] 09/03/2024 09:26:51 5 Sports Shoulder 4&1 completed Samson Torres PA-C [address], [place], [address], [facility] 06/06/2024 11:18:50 5 Ankle Joint Asp & Inj, L/R Celestone 2cc completed Raciel Adrian MD [address] [facility], [place], [address], [facility] 03/30/2024 14:58:09 4 Sports Shoulder completed Vanessa Flood MD [address], [place], [address], [facility] 03/07/2024 15:26:29 4 Ankle Joint Asp & Inj, L/R Celestone 2cc completed Raciel Adrian MD [address] [facility], [place], [address], [facility] 12/14/2023 13:05:55 4 Sports Shoulder completed Vanessa Flood MD [address], [place], [address], [facility] 12/13/2023 14:13:55 4 Ankle Joint Asp & Inj, L/R Celestone 2cc completed Raciel Adrian MD [address] [facility], [place], [address], [facility] 08/16/2023 19:52:05 6 Ankle/Foot Surgery completed DONALD VILLANUEVA [facility] 12/13/2023 13:31:24 Knee Surgery completed DONALD VILLANUEVA [facility] 12/13/2023 13:31:24 Imaging Results None recorded. Procedure Notes None recorded. Medical Equipment None Reported. Allergies Allergen ID Allergen Name Allergen Category Reaction Reaction Severity Criticality Documentation Date Start Date Code Code System Note Provider Name and Address Organization Details Recorded Time [id number] bacitraci n medicatio n Not available Not available Not available 07/30/2023 1291 RxNorm Fatou Griffin [facility] 10:32:16 Medications Name Sig Start Date Stop Date Status Note LastModified by Organization Details LastModified Time amoxicillin 500 mg capsule TAKE 1 CAPSULE BY MOUTH 3 TIMES A DAY UNTIL GONE 03/07 completed Not Available Not Available Not Available bicalutamid e 50 mg tablet TAKE 1 TABLET BY MOUTH EVERY DAY 03/07 completed Not Available Not Available Not Available potassium chloride ER 10 mEq capsule,ext ended release TAKE 1 CAPSULE BY MOUTH FOUR TIMES A DAY active Not Available Not Available No t Available cetirizine 10 mg tablet TAKE 1 TABLET BY MOUTH EVERY DAY NEEDED FOR ALLERGIES active Not Available Not Available No t Available lisinopril 20 mg tablet TAKE 1 TABLET BY MOUTH EVERY DAY active Not Available Not Available No t Available prednisone 5 mg tablet TAKE 1 TABLET BY MOUTH DAILY WITH BREAKFAST . START WHEN YOU START ABIRATERO NE. active Not Available Not Available No t Available amlodipine 5 mg tablet TAKE 2 TABLETS BY MOUTH DAILY active Not Available Not Available No t Available ciprofloxac in 500 mg tablet TAKE 1 TABLET BY MOUTH TWICE A DAY IN THE AM AND PM OF PROSTATE BIOPSY 03/07 completed Not Available Not Available Not Available lorazepam 0.5 mg tablet TAKE 1 TABLET BY MOUTH ONCE NEEDED FOR PROCEDURE FOR 1 DAY 03/07 completed Not Available Not Available Not Available tamsulosin 0.4 mg capsule TAKE 1 CAPSULE (0.4 MG) BY ORAL ROUTE ONCE DAILY 1/2 HOUR FOLLOWING THE SAME MEAL EACH DAY active Not Available Not Available No t Available potassium citrate ER 10 mEq (1,080 mg) tablet,exte nded release TAKE 1 TABLET BY MOUTH FOUR TIMES A DAY active Not Available Not Available No t Available cephalexin 500 mg capsule Take 1 capsule every 6 hours by oral route. active Not Available Not Available No t Available lisinopril 10 mg tablet TAKE 1 TABLET BY MOUTH EVERY DAY active Not Available Not Available No t Available fluticasone propionate 50 mcg/actuati on nasal spray,suspe nsion 1 SPRAY INTRANASA LLY EVERY 12 HOURS FOR 30 DAYS ADMINISTE R INTO EACH NOSTRIL active Not Available Not Available No t Available doxycycline hyclate 100 mg tablet TAKE 1 TABLET TWICE A DAY BY ORAL ROUTE WITH MEAL(S) FOR 14 DAYS. 12/12 completed Not Available Not Available Not Available finasteride 5 mg tablet TAKE 1 TABLET BY MOUTH EVERY DAY active Not Available Not Available No t Available oxycodone 5 mg tablet TAKE 1 TABLET BY MOUTH EVERY 4 HOURS NEEDED FOR PAIN active Not Available Not Available No t Available rosuvastati n 10 mg tablet TAKE 1 TABLET BY MOUTH EVERY DAY active Not Available Not Available No t Available metoprolol tartrate 25 mg tablet TAKE 1 TABLET BY MOUTH TWICE A DAY active Not Available Not Available No t Available Vitamin D3 active Not Available Not Av ailable Not Available abiraterone 250 mg tablet Take 4 tablets every day by oral route. active Not Available Not Available No t Available colchicine 0.6 mg capsule Take 1 capsule every day by oral route. active Not Available Not Available No t Available Adult Aspirin Regimen 81 mg tablet,kartik yed release Take 1 tablet every day by oral route. active Not Available Not Available No t Available Astepro Allergy 205.5 mcg (0.15 %) nasal spray INSTILL 1 SPRAY INTO EACH NOSTRIL TWICE A DAY FOR 30 DAYS active Not Available Not Available No t Available Vitals Date Recorded Body height Body mass index (BMI) Body weight Provider Name and Address Organization Details Last Updated DateTime 03/30/2024 177.8 cm 42.2 kg/m2 334436.16 g Fatou Griffin [facility] 03/30/2024 12:56:31 Date Recorded Body height Body mass index (BMI) Body weight Provider Name and Address Organization Details Last Updated DateTime 06/08/2024 177.8 cm 42.2 kg/m2 714117.16 g Ameena Pennington [facility] 06/08/2024 09:16:40 Date Recorded Body height Body mass index (BMI) Body weight Provider Name and Address Organization Details Last Updated DateTime 09/06/2024 177.8 cm 42.2 kg/m2 207275.16 g Ameena Pennington [facility] 09/06/2024 09:28:57 Date Recorded Body height Body mass index (BMI) Body weight Provider Name and Address Organization Details Last Updated DateTime 12/14/2023 177.8 cm 42.2 kg/m2 386137.16 g CALLI MCCLELLAND [facility] 12/14/2023 12:49:30 Date Recorded Body height Body mass index (BMI) Body weight Provider Name and Address Organization Details Last Updated DateTime 03/07/2024 177.8 cm 42.2 kg/m2 162308.16 g DONALD VILLANUEVA [facility] 03/07/2024 14:28:46 Social History Question Answer Notes LastModified by Organizat CH Mack Details LastModified Time Tobacco Smoking Status Never Smoker DONALD VILLANUEVA [facility] 12/13/2023 13:31:24 What Is Your Relationship Status? Information not available 12/13/2023 Sex: Unknown Functional Status Question Answer Note LastModified by Organizat [facility] Mack Details LastModified Time How many times per week do you consume alcohol? 3-4 times per week Information not available 12/13/2023 Do you use any illicit or recreational drugs? No Information not available 12/13/2023 Do you or have you ever used any other forms of tobacco or nicotine? No Information not available 12/13/2023 Do you or have you ever used e-cigarettes or vape? Never used electronic cigarettes Information not available 12/13/2023 Mental Status None recorded. Family History Nothing Reported. Medical History Condition Response Cancer Y Kidney/Bladder Problems Y Arthritis Y Hypertension Y Past Encounters Encounter ID Performer Location Encounter Start Date Encounter Closed Date Diagnosis/Indication Diagnosis SNOMED-CT Code Diagnosis ICD10 Code Diagnosis Note [id number] MD Irish Velasco [facility] [address] [place] [address] 07/30/2023 09:55:18 08/24/2023 12:40:04 Pain of right ankle joint 7279112595 2350947 M25.571 Localized, primary osteoarthritis of the ankle and/or foot 435319895 M19.704 [id number] MD Irish Velasco [address] [place] [address] 08/13/2023 14:34:10 09/01/2023 13:51:52 Localized, primary osteoarthritis of the ankle and/or foot 124051997 M19.079 Pain of ri ght ankle joint 0770279573 6842620 M25.839 [id number] MD Irish Velasco [address] [place] [address] 10/12/2023 12:39:00 10/27/2023 13:33:33 Localized, primary osteoarthritis of the ankle and/or foot 563412699 M19.079 Pain of ri ght ankle joint 9924707868 6495762 M25.458 [id number] MD Jason Velasconimateo [address] [place] [address] 12/14/2023 12:39:34 12/24/2023 15:23:56 Localized, primary osteoarthritis of the ankle and/or foot 310897545 M19.079 Pain of ri ght ankle joint 7901212573 8014946 M25.731 [id number] MD Irish Pimentel [address] [place] [address] 12/13/2023 13:18:08 01/04/2024 10:22:36 Pain of right shoulder joint 7198194791 8194733 M25.233 [id number] MD Jason Pimentelmateo [address] [place] [address] 03/07/2024 14:24:28 03/30/2024 10:20:14 Rotator cuff arthropathy of right shoulder 4095391321 [id number] M12.799 [id number] Raciel Adrian MD MARILU Birn[facility] [address] [place] [address] 03/30/2024 12:49:31 04/13/2024 12:24:27 Localized, primary osteoarthritis of the ankle and/or foot 419926787 M19.528 [id number] ADITI Leung [facility] [address] [place] [address] 06/08/2024 09:12:32 06/27/2024 10:07:37 Osteoarthritis of joint of right shoulder region 7007982662 91000 M19.946 [id number] ADITI Leung [facility] [address] [place] [address] 09/06/2024 09:09:31 09/06/2024 09:51:54 Osteoarthritis of joint of right shoulder region 3223762276 44653 M19.011 Health Concerns Section Related Observation LastModified by Organization Detai ls LastModified Time None Recorded Concern Status LastModified by Organization Details LastModified Time None Recorded Advance Directives Directive None Recorded Payers Insurance Date Sequence Insurance Name Policy Number Policy Flores Covered Member ID Flores Member ID Guarantor Name 09/03/2024 1 [employer] (MEDICARE REPLACEMENT/ ADVANTAGE - PPO) [id number] Karmen Jackson [id number] Karmen Jackson Notes Date Note Type Note Provider Name and Address Organization Details Recorded Time 03/07/2024 text/html Issue: Right shoulder cuff tear arthropathy Interval History:This is a 78-year-old nkoug-chic-wixikxiv retired gentleman who presents to clinic today for evaluation of right shoulder complaints. No specific injury that he can recall. Apparently was not really aware of any pain or difficulty with the arm until he had a PET scan for other reasons, which lit up in the right shoulder, prompting evaluation. He does note some limitations in range of motion and recent onset of crepitus. Can have pain in the shoulder with abduction, felt over the anterolateral aspect of the shoulder. Has been using ibuprofen and Voltaren for this. Cortisone injection 12/13/2023 provided about 2 months of 50% relief of symptoms. As injection has worn off, he is more aware of nighttime discomfort, particularly if he tries to lay on the right side. Still able to bring the arm up overhead, with minimal pain. Past family, medical, social history and review of systems have been reviewed and updated on the medical history sheet saved to the patient's chart. A 12-point review of systems is negative x12 except as noted above and/or on the medical history sheet. Examination: 78-year-old gentleman in no acute distress. 5 feet 10 inches. 294 pounds. On exam of the right upper extremity, skin over the shoulder is intact. No effusion, no gross atrophy. No point tenderness to palpation. Active and passive forward elevation 160 with subacromial crepitus noted. Passive external rotation 50 with 5 degree ER lag. Internal rotation L2. 4/5 with ER, 5-/5 with scaption, 5/5 with IR. Positive Yergason's, which reproduces his primary complaint of anterolateral shoulder pain. sensation intact in an axillary distribution. Fires EPL, FPL and intrinsics. Hand is warm and well-perfused.Imagi nv of the Right shoulder ordered and obtained at [facility] 12/13/2023 were reviewed during the visit. These demonstrate moderate to severe glenohumeral arthritis with significant narrowing of glenohumeral joint space, best appreciated on axillary view. There also appears to be some proximal migration of the humeral head and remodeling of the glenoid and anterior acromion as well as the greater tuberosity, suggestive of longstanding cuff tear arthropathy. Type III acromion. Humeral head centered on axillary view.A single lateral view of the cervical spine was obtained demonstrating significant spondylosis affecting the mid cervical spine from C4-C6. Impression: 78 year old right hand dominant retired gentleman with chronic but still fairly low-grade right shoulder pain. Exam and imaging consistent with cuff tear arthropathy. Plan: Findings and options for management reviewed with the patient. Discussed that should symptoms persist, definitive management would entail a reverse total shoulder arthroplasty. Patient notes that his is on hospice, he is currently taking care of her, I am not able to consider surgery at any time in the near future. As such, will forward with repeat injection today. He will follow-up in 3 months for recheck and repeat injection at that time if at all useful. [facility] speech recognition inspector paper products software was used to create portions of this document. An attempt at proofreading has been made to minimize errors. Please call for corrections. Vanessa Flood MD [address] [place], [place] [address], [place], [address], [facility] 03/07/2024 15:29:48 06/08/2024 text/html I am seeing the patient today under the supervision of Dr. Nelson who was available but who did not see the patient. HPI: Patient returns for follow-up of right shoulder pain. Patient has noted degenerative rotator cuff disease of the right shoulder. Patient has been doing well with conservative management. Past family, medical, social history and review of systems has been reviewed, updated and is located in the patient s chart. Examination: The patient is well appearing and in no apparent distress. Alert and oriented x3. Gait is symmetric. No significant swelling warmth or erythema of the right shoulder. Range of motion of the shoulder: Decreased in all planes with pain and crepitus. 4-5 strength of the right shoulder. Peripheral, vascular, lymphatic examination, skin, neurological, coordination, reflexes, sensation are within normal limits. Impression: Degenerative rotator cuff disease of the right shoulder. Plan: Reviewed diagnosis with the patient today in the office. Discussed role of conservative management. Reviewed home exercise program. Activity modification discussed. P.r.n. Tylenol or NSAIDs can be used. Discussed the role of injection therapies. Injected the subacromial space of the right shoulder. Follow up torin Torres PA-C [address], [place], [address], [facility] 06/08/2024 09:30:50 09/06/2024 text/html I am seeing the patient today under the supervision of Dr. Nelson who was available but who did not see the patient. HPI: Patient returns for follow-up of right shoulder pain. Patient has noted degenerative rotator cuff disease of the right shoulder. Patient has been doing well with conservative management. Past family, medical, social history and review of systems has been reviewed, updated and is located in the patient s chart. Examination: The patient is well appearing and in no apparent distress. Alert and oriented x3. Gait is symmetric. No significant swelling warmth or erythema of the right shoulder. Range of motion of the shoulder: Decreased in all planes with pain and crepitus. 4-5 strength of the right shoulder. Peripheral, vascular, lymphatic examination, skin, neurological, coordination, reflexes, sensation are within normal limits. Impression: Degenerative rotator cuff disease of the right shoulder. Plan: Reviewed diagnosis with the patient today in the office. Discussed role of conservative management. Reviewed home exercise program. Activity modification discussed. P.r.n. Tylenol or NSAIDs can be used. Discussed the role of injection therapies. Injected the subacromial space of the right shoulder. Follow up torin Torres PA-C [address], [place], [address], [facility] 09/06/2024 09:51:53
== END 2024-09-14 11:47 | disposition home or self-care (01) ==
LOC: HO.HPS 11:15
PROVIDERS: PCP Family Medicine; Visit Provider Internal Medicine
DX: E66.01 Morbid (severe) obesity due to excess calories (principal); J98.4 Other disorders of lung; G47.34 Idiopathic sleep related nonobstructive alveolar hypoventilation; G47.30 Sleep apnea, unspecified
CPT/HCPCS: 99213

== ENCOUNTER → 2024-09-14 11:15 | Outpatient (BNVA) | payer MEDICARE, SELFPAY | PROVIDERS: PCP Family Medicine; Visit Provider Internal Medicine | DX: E66.01 Morbid (severe) obesity due to excess calories (principal); J98.4 Other disorders of lung; G47.34 Idiopathic sleep related nonobstructive alveolar hypoventilation; G47.30 Sleep apnea, unspecified | CPT/HCPCS: 99212 ==

== ENCOUNTER 2024-11-21 14:21 | Outpatient (AMB) | payer MEDICARE, SELFPAY ==
--- NOTE | 2024-11-21 14:23 | MHC.PC.OV ---
Vital Signs 11/21/24 14:28 Height 5 ft 11 in Weight 306 lb 6 oz BMI 42.7 BP 118/74 Blood Pressure Location Lt brachial Position Sitting Respiration 12 Pulse 61 Pulse Source Pulse Oximeter Temp 97.3 F Temp Source Oral Pulse Oximetry (%) 96 Oxygen Delivery Method Room Air Intake Visit Reasons: f/u HTN, chronic conditions Intake Note: Follow up htn and review ultrasound. 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 Ultrasound 09/13/24 showed calcified lesion in upper pole of L kidney. Pt has had previous ablation. Was unable to characterize further due to calcified nature of abnormality. Blood pressure today 118/74, 61p. He is on lisinopril 20mg, metoprolol 25mg b.i.d, amlodipine 10mg daily. Pt does have sleep apnea. Most recent labs show mild, stable anemia. [facility] Medical History Obesity hypoventilation syndrome Morbid obesity Restrictive lung disease FH: cholecystectomy Arthritis of right ankle Prostate cancer High blood pressure Surgical History History of cardiac cath History of bilateral knee replacement History of carpal tunnel surgery History of ankle surgery Family History Mother Cardiovascular disease Cancer Father High blood pressure Social History Household Members: Spouse Housing: Other Housing Other:: cottage Are you a primary caregivers non medical to a significant other at home: Yes Do you presently have visiting nurse or other home services: No 75 years or older and lives alone: No Alcohol intake: current Alcohol intake frequency: holidays/special occasions only Patient Tobacco Use Status: Never used Tobacco e-Cigarette/Vaping Use: Never Used Second Hand Smoke Exposure: No Special nikkie needs: Yes Special nikkie accommodation details: [facility] [employer] service: No Current occupational status: retired Cognitive needs: No Hearing needs: Yes Vision needs: Yes (patient wears glasses) Questionnaire Thrive Questionnaire Date Thrive assessed: 04/07/24 I am a: Patient What is your living situation today?: I have a steady place to live Within the past 12 months, did the food you bought not last and you didn't have the money to get more?: Never true Within the past 12 months, did you worry whether your food would run out before you got money to buy more?: Never true Do you have trouble paying for medicines?: No Do you have trouble getting transportation to medical appointments?: No Do you have trouble paying your heating and electricity bill?: No Do you have trouble taking care of your child, family member or friend?: No Do you have trouble with day-to-day activities such as bathing, preparing meals, shopping, managing finances, etc.?: No Are you currently unemployed and looking for a job?: No Are you interested in more education?: No Please select the resources that you would like help with: None Currently or been in a relationship where the following occur: No concerns reported THRIVE Score: 0 TRACE-7 AMB Questionnaire TRACE-7 Date TRACE - 7 assessed: 08/01/24 Source: Developed by Drs. Yusuf Perez, Kylah Wright, Tyler Paulson and colleagues, with an educational mamadou from [employer] ([employer]). Review of Systems Const Denies chills, Denies fatigue, Denies fever(s), Denies headache(s) and Denies weakness ENT Denies dizziness and Denies headache(s) Card Denies dyspnea Resp Denies cough, Denies dyspnea, Denies wheezing and Denies other (shortness of breath) Musc Denies numbness and Denies tingling Neuro Denies dizziness, Denies headache(s), Denies numbness, Denies tingling and Denies weakness Psych Denies anxiety and Denies depression Endo Denies fatigue Aller/Immun Denies wheezing Physical exam (Primary Care) Vital Signs: Last Vital Signs Temp 97.3 F 11/21/24 14:28 Pulse 61 11/21/24 14:28 Resp 12 11/21/24 14:28 BP 118/74 11/21/24 14:28 Pulse Ox 96 11/21/24 14:28 Oxygen Delivery Method Room Air 11/21/24 14:28 BMI result Body Mass Index 42.7 Tobacco/Smoking Status: Tobacco use Status Tobacco use date assessed 11/21/24 11/21/24 14:24 Patient Tobacco Use Status Never used Tobacco 11/21/24 14:24 e-Cigarette/Vaping Use Never Used 11/21/24 14:24 Thrive Assessment: Date of Thrive Assessment Date Thrive assessed 04/07/24 11/21/24 14:24 Currently or been in a relationship where the following occur: No concerns reported Const General: well developed; No acute distress Nutritional Appearance: well nourished Orientation/consciousness: patient oriented x3 HENMT Head: Yes normocephalic and Yes atraumatic Eyes General: appearance normal, both eyes and all related structures Pupils: Equal, round and reactive pupils present EOM: EOMs intact bilaterally Resp Effort & Inspection: normal respiratory effort Neuro General: patient oriented x3 and gait normal Cranial nerves: Yes Equal, round and reactive pupils present Psych Affect: normal affect Coding Level of Care Code Est Pt Level 4 (97734) Diagnoses High blood pressure I10 Left renal mass N28.89 Mild anemia D64.9 Sleep apnea G47.30 Assessment & Plan Assessment & Plan (1) High blood pressure: Code(s): I10 - Essential (primary) hypertension Category: Medical Plan: Blood pressure is well controlled. Goal is less than 140/90 Continue current medications (2) Left renal mass: Code(s): N28.89 - Other specified disorders of kidney and ureter Category: Medical Plan: Left calcified exophytic mass seen on CT scan and radiology recommended an ultrasound. Ultrasound notes that mass is calcified and can not characterize further-recommends a CT scan Will get dedicated CT scan. (3) Mild anemia: Code(s): D64.9 - Anemia, unspecified Category: Medical Plan: Stable (4) Sleep apnea: Code(s): G47.30 - Sleep apnea, unspecified Category: Medical Plan: Sleep study consistent with severe sleep apnea but patient declines CPAP Sleep medicine recommended oxygen and refer him to pulmonology who agreed. Continue taking nighttime supplemental oxygen Encouraged weight loss and sleeping on side Orders: Orders CT abdomen pelvis wo IV con Today N28.89 - Other specified disorders of kidney and ureter
[2024-11-21 14:28] VITALS: BP 118/74; PULSE 61; RESP 12; TEMP 36.3; O2SAT 96; BMI 42.7
--- OUTSIDE RECORDS SUMMARY | 2024-11-21 15:34 | XMS_ITS ---
[facility] Name [facility] Organization [facility] Encounters Encounter Type Encounter Reason Primary Diagnosis Location Date [facility] 2022 [facility] 2022 [facility] 2022 [facility] 2022 Care Team Organization Name Specialty Phone Email Start Date End Balbir carrasco [facility] SABRINA DUARTE Primary Care 07/25/2024 [facility] Pernell Hammond [facility] Darling Weiss Primary Care 05/26/2022 [facility] DARLING WEISS Primary Care
--- OUTSIDE RECORDS SUMMARY | 2024-11-21 15:34 | XMS_ITS | Encounter Summary ---
Author Organization [facility] Address [address] [place] [address] Care Team Providers Care Sieve Grader Tender Name Role Phone Bill Weiss MD Primary Care Provider Encounter Details Date Type Department Care Team (Late st Contact Info) Description 10/16/2020 Erroneous Encounter [facility] CONVERSION DEPT [address] [place] [id number] Provider, MD Kristin Social History Tobacco Use [...] on filedocumented in this encounter Care Teams Sieve Grader Tender Relationship Specialty Start Date End Date Bill Weiss MD [address] [place] [id number] PCP - General Internal Medicine 02/28/20 documented as of this encounter
--- OUTSIDE RECORDS SUMMARY | 2024-11-21 15:34 | XMS_ITS | Encounter Summary ---
Author Organization [facility] Address [address] [place] [address] Care Team Providers Care Field Observer Name Role Phone Bill Weiss MD Primary Care Provider [phone] Encounter Details Date Type Department Care Team (Late st Contact Info) Description 03/12/2020 Lab Requisition [place] COVID-[address] [id number] Yusuf Carson MD [address] [place], [place] [id number] Encounter for laboratory testing for COVID-19 virus [...] DETECTED Not Detected 03/13/2020 9:22 AM EST [facility] Comment: ADDITIONAL INFORMATION The [facility] COVID-19 RT-PCR Assay is Real-Time Reverse Cv/Cvn Cv Tsc System Operator Polymerase Chain Reaction (control officer-PCR) for the in vitro qualitative detection of three SARS-Cov-2 target sequences unique to the coronavirus disease 2019 (COVID-19). This is an Emergency Use Authorization (EUA) in vitro diagnostic (IVD) test that has been modified to include the whodoyou automated liquid handler. Its analytical performance characteristics have been determined by the parachute line tier and verified by [facility] in a manner consistent with CLIA [...] at the following links: For Healthcare Providers: https://www.fda.gov/media/072924/download For Patients: https://www.fda.gov/media/531971/download TEST LIMITATIONS Positive results are indicative of [...] system. For further details refer to the [employer] COVID-19 Combo Kit EUA submission (https://www.[employer]ital[employer].gov/media/382561/download). ----- Test performed by [facility], [address] [place] [address] CLIA# [id number] Robert Butterfield M.D., Ph.D., [facility] [place], Clinical Card Lacer Jacquard Microbiology Nasopharyngeal swab / Unknown 03/12/2020 10:04 AM EST 03/12/2020 10:04 AM EST Narrative [facility] - 03/13/2020 9:22 AM EST Performed at [facility], [address] [place] [address], [place] Lic 0695, CLIA [id number] Yusuf Carson MD MICROBIOLOGY - GENERAL ORDERAB LES Final Result [facility] [address] [place] [address] documented in this encounter Visit Diagnoses Diagnosis Encounter for laboratory testing for COVID-19 virus documented in this encounter Care Teams Field Observer Relationship Specialty Start Date End Date Bill Weiss MD [facility] [place] [address] PCP - General Internal Medicine 02/28/20 documented as of this encounter
--- OUTSIDE RECORDS SUMMARY | 2024-11-21 15:34 | XMS_ITS | Clinical Summary ---
Author Organization [facility] Address [address] [place] [id number] Care Team Providers Care Manager In Training Name Role Phone Bill Weiss MD Primary Care Provider [phone] Allergies Active Allergy Reactions Criticality Noted Date [...] 57 01/09/2021 3:12 PM EDT Temperature 36.4 C (97.5 F) 01/09/2021 11:53 AM EDT Respiratory Rate 20 01/09/2021 3:12 [...] season) 2023 05/24/2020, 04/26/2020 Influenza Vaccine (#1) 2024 HIB Vaccines Aged Out No longer eligi ble based on patient's age to complete this topic HPV Vaccines (No Doses Required) Completed Hepatitis A Vaccines Aged Out No long [...] age to complete this topic Insurance [place] Care Teams Manager In Training Relationship Specialty Start Date End Date Bill Weiss MD [address] [place] [address] PCP - General 01/09/21
--- OUTSIDE RECORDS SUMMARY | 2024-11-21 15:34 | XMS_ITS | Encounter Summary ---
Author Organization [facility] Address [address] [place] [address] Care Team Providers Care Integrity Engineer Name Role Phone Bill Weiss MD Primary Care Provider [phone] Encounter Details Date Type Department Care Team (Late st Contact Info) Description 02/27/2020 Lab Requisition [place] COVID-[address] [id number] Yusuf Carson MD [address] [place], [place] [id number] Encounter for laboratory testing for COVID-19 virus [...] DETECTED Not Detected 02/28/2020 6:05 AM EST [facility] Comment: ADDITIONAL INFORMATION The [facility] COVID-19 RT-PCR Assay is Real-Time Reverse Hi Ranger Operator Polymerase Chain Reaction (woodyard operator-PCR) for the in vitro qualitative detection of three SARS-Cov-2 target sequences unique to the coronavirus disease 2019 (COVID-19). This is an Emergency Use Authorization (EUA) in vitro diagnostic (IVD) test that has been modified to include the Viddsee automated liquid handler. Its analytical performance characteristics have been determined by the software asset manager and verified by [facility] in a manner consistent with CLIA [...] at the following links: For Healthcare Providers: https://www.fda.gov/media/817651/download For Patients: https://www.fda.gov/media/849077/download TEST LIMITATIONS Positive results are indicative of [...] system. For further details refer to the (In[employer] COVID-19 Combo Kit EUA submission (https://www.[employer].gov/media/751451/download). ----- Test performed by [facility], [address] [place] [address] CLIA# [id number] Robert Butterfield M.D., Ph.D., [facility] [place], Clinical Administrative Assistant Receptionist Microbiology Nasopharyngeal swab / Unknown 02/27/2020 9:18 AM EST 02/27/2020 9:18 AM EST Narrative [facility] - 02/28/2020 6:05 AM EST Performed at [facility], [address] [place] [address], [place] Lic 0695, CLIA [id number] Yusuf Carson MD MICROBIOLOGY - GENERAL ORDERAB LES Final Result [address] [address] documented in this encounter Visit Diagnoses Diagnosis Encounter for laboratory testing for COVID-19 virus documented in this encounter Care Teams Integrity Engineer Relationship Specialty Start Date End Date Bill Weiss MD [facility] [place] [address] PCP - General Internal Medicine 02/28/20 documented as of this encounter
--- OUTSIDE RECORDS SUMMARY | 2024-11-21 15:34 | XMS_ITS | Clinical Summary ---
Author Organization [facility] Address [address] [address] Phone Care Team Providers Care Stringing Machine Operator Name Role Phone Bobo Nino Elidia DO Unavailable [phone] Richmond Avelar MD Primary Care Provider Carol Bruno CNP Unavailable Allergies Active Allergy Reactions Criticality Noted Date Comments Bacitracin 11/03/2022 Medications amLODIPine (NORVASC) 5 MG tablet Take 10 mg by mouth 2 (two) times a day. Active tamsulosin (FLOMAX) 0.4 mg Cap Take 0.4 mg by mouth daily. Active finasteride (PROSCAR) 5 mg tablet Take 5 mg by mouth daily. Active potassium citrate (UROCIT-K) 10 mEq SR tablet Take 40 mEq by mouth 2 (two) times a day with meals. Reports taking 4 tabs of 10mEq BID Active ascorbic acid, vitamin C, (VITAMIN C) 500 MG tablet Take 1,000 mg by mouth daily. Active colchicine, gout, (COLCRYS) 0.6 mg tablet Take 0.6 mg by mouth as needed. Active cholecalciferol , vitamin D3, (VITAMIN D3 ORAL) Take 500 Units by mouth daily. Active fluticasone propionate (FLONASE) 50 mcg/actuation nasal spray as needed. 3 Active cetirizine (ZYRTEC) 10 MG tablet Take by mouth as needed. 3 Active aspirin 81 mg chewable tablet Take 81 mg by mouth every other day. Active predniSONE (DELTASONE) 5 MG tabletIndicatio ns:Malignant neoplasm of prostate Take 1 tablet (5 mg total) by mouth daily with breakfast. Start when you start abiraterone 90 tablet 3 4 Active abiraterone (ZYTIGA) 250 mg TabIndications: Malignant neoplasm of prostate Take 4 tablets (1,000 mg total) by mouth daily. 120 tablet 11 4 Active abiraterone (ZYTIGA) 250 mg Tab Take 4 tablets (1,000 mg total) by mouth daily. 360 tablet 3 4 Active Active Problems Patient Care Coordination No te Formatting of this note migh t be different from the original. Height 171cm shoes and brace on at pt request taken by OC 04/26/2023 Problem Noted Date Diagnosed Date Malignant neoplasm of prostate 11/03/2022 Renal cell carcinoma of right kidney 11/03/2022 H/O total knee replacement, bilateral 11/03/2022 History of cholecystectomy 11/03/2022 History of nephrolithiasis 11/03/2022 BMI 40.0-44.9, adult 11/03/2022 Encounters Date Type Department Care Team Description 10/16/2024 3:00 PM EDT Office Visit [facility] at [address] [address] Bobo Nino, Malignant neoplasm of prostate (Primary Dx) 10/16/2024 1:43 PM EDT - 10/16/2024 11:59 PM EDT Hospital Encounter [facility] [address] [place] [address] Bobo Nino, Discharge Disposition: Home or Self Care 10/09/2024 Orders Only [facility] at [address] [address] Yara John Malignant neoplasm of prostate (Primary Dx) from Last 3 Months Immunizations Immunization Administration Dates Next Due COVID-19 (Pre-01/11) Moderna Vaccine, mRNA, PF 0 05/24/2020,04/26/2020 Influenza Quadrivalent Adjuvanted Preservative F ree IM 01/14/2023,01/07/2022 Influenza Trivalent Adjuvanted Preservative free IM 12/16/2023 RSV Vaccine (monovalent, adjuvanted) 02/26/2023 Family History Medical History Relation Comments Cancer Father Cancer Mother Relation Status Comments Father Mother Social History Tobacco Use Types Packs/Day Years Used Date Smoking Tobacco: Never Smokeless Tobacco: Never Tobacco Cessation:Counseling Given: Not Answered Alcohol Use Standard Drinks/Week Comments Yes 2 (1 standard drink = 0.6 oz pure alcohol) currently drinks beer and whisky Education Answer Date Recorded Are you interested in more education? Not on singh e 10/20/2022 Are you concerned about learning? Not on file 10/20/2022 No 10/20/2022 No 10/20/2022 Digital Access Answer Date Recorded No 10/20/2022 No 10/20/2022 Reliable internet access at home? Not on file 10/20/2022 Device with a working camera? Not on file Sex and Gender Information Value Date Recorded Sex Assigned at Not on file Legal Sex Male 1:07 PM EDT Gender Identity Not on file Sexual Orientation Not on file Last Filed Vital Signs Vital Sign Reading Time Taken Comments Blood Pressure 141/89 10/16/2024 2:41 PM EDT 2nd BP reading- 129/91 Pulse 96 10/16/2024 2:41 PM EDT Temperature 36.7 C (98.1 F) 04/24/2024 3:22 PM EST Respiratory Rate - - Oxygen Saturation 96% 10/16/2024 2:4 1 PM EDT Inhaled Oxygen Concentration - - Weight 139.8 kg (308 lb 4.8 oz) 10/16/2024 2:37 PM EDT Height 171 cm (5' 7.32 ) 10/16/2024 2:3 7 PM EDT Body Mass Index 47.82 10/16/2024 2:37 PM EDT Plan of Treatment Upcoming Encounters Date Type Department Care Team (Late st Contact Info) Description 01/18/2025 2:30 PM EDT Appointment [facility] [address] [place] [address] Bobo Nino DO [address] [place] [address] [email or web address] 01/18/2025 3:30 PM EDT Office Visit [facility] at [address] [address] Bobo Nino DO [address] [place] [address] [email or web address] Health Maintenance Due Date Last Done Comments Adult Td,Tdap Booster 1945 LIPID PANEL 1945 DEPRESSION SCREENING 1956 PNEUMOCOCCAL VACCINES (50+ years) (1 of 2 - PCV) 08/22/1963 ZOSTER VACCINES (1 of 2) 08/22/1963 COVID-19 VACCINE ( season) 2023 01/14/2023, 01/07/2022, 05/24/2020, Additional history exists RSV VACCINE Completed 02/26/2023 SMOKING STATUS SCREENING (Once After 26 Yrs) Completed 04/24/2024 HEPATITIS A VACCINES Aged Out No long er eligible based on patient's age to complete this topic HIB VACCINES Aged Out No longer eligi ble based on patient's age to complete this topic MENINGOCOCCAL VACCINES (ACWY) Aged Out No longer eligible based on patient's age to complete this topic MENINGOCOCCAL VACCINES (B) Aged Out N o longer eligible based on patient's age to complete this topic Medical Devices Not on file Procedures Procedure Name Priority Date/Time Associated Diagnosis Comments PSA DIAGNOSTIC (MONITORING) Routine 10/16/2024 1:43 PM EDT Malignant neoplasm of prostate COMPREHENSIVE METABOLIC PANEL Routine 10/16/2024 1:43 PM EDT Malignant neoplasm of prostate CBC AND DIFFERENTIAL Routine 10/16/2024 1:43 PM EDT Malignant neoplasm of prostate from Last 3 Months Results * (ABNORMAL) Comprehensive metabolic panel (10/16/2024 1:43 PM EDT) SODIUM 145 133 - 146 mmol/L [facility] POTASSIUM 4.4 3.3 - 5.1 mmol/L [facility] CHLORIDE 106 96 - 108 mmol/L [facility] CO2 27 21 - 35 mmol/L [facility] BUN 29(H) 6 - 19 mg/dL [facility] CREATININE 1.20 0.5 - 1.5 mg/dL [facility] GLUCOSE 92 70 - 99 mg/dL [facility] ALBUMIN 3.6(L) 3.9 - 4.8 g/dL [facility] TOTAL PROTEIN 6.0(L) 6.5 - 8.0 g/dL [facility] CALCIUM 9.2 8.4 - 10.3 mg/dL [facility] ALKALINE PHOSPHATASE 50 39 - 117 U/L [facility] TOTAL BILIRUBIN 0.5 0.0 - 1.2 mg/dL [facility] AST 11 0 - 37 U/L [facility] ALT <5 0 - 40 U/L [facility] GLOBULIN 2.4 1 - 4.8 g/dL [facility] EGFR 61 >59 mL/min/1.7 3m2 [facility] Comment:Estimated glomerular filtration rate calculated using the CKD-EPI refit equation. ANION GAP 16 10 - 20 mmol/L [facility] Blood 10/16/2024 1:43 PM EDT 10/16/2024 1:46 PM EDT Bobo Nino DO LAB BLOOD ORDERABLES Final Result Performing Organization Address City/[facility]/ZIP Co de Phone Number [address] [address] * PSA diagnostic (monitoring) (10/16/2024 1:43 PM EDT) PSA <0.01 0 - 4.00 ng/mL [facility] Comment: Test Methodology Martha [id number] Patient results determined by assays using different manufacturers or methods may not be comparable. Blood 10/16/2024 1:43 PM EDT 10/16/2024 1:46 PM EDT Bobo Nino DO LAB BLOOD ORDERABLES Final Result Performing Organization Address [facility]/ZIP Co de Phone Number [address] [address] * (ABNORMAL) CBC and differential (10/16/2024 1:43 PM EDT) WBC 8.89 4.00 - 11.00 K/uL [facility] RBC 4.93 4.50 - 5.90 M/uL [facility] HGB 12.7(L) 13.5 - 17.5 g/dL [facility] HCT 42.7 41.0 - 53.0 % [facility] PLT 189 150 - 450 K/uL [facility] MCV 86.6 80.0 - 100.0 fL [facility] MCH 25.8(L) 27.0 - 31.0 pg [facility] MCHC 29.7(L) 32.0 - 36.0 g/dL [facility] RDW 16.6(H) 11.5 - 14.5 % [facility] MPV 10.2 8.4 - 12.0 fL [facility] NRBC 0.00 0.00 /100 WBCs [facility] ABSOLUTE NRBC 0.00 0.00 K/uL [facility] DIFF METHOD Auto [facility] NEUTS 68.8 48.0 - 76.0 % [facility] LYMPHS 15.5(L) 18.0 - 41.0 % [facility] MONOS 14.1(H) 4.0 - 11.0 % [facility] EOS 1.1 0.0 - 5.0 % [facility] BASOS 0.2 0.0 - 1.5 % [facility] Granulocytes, immature (%) 0.3 0.0 - 0.9 % [facility] ABSOLUTE NEUTS 6.11 1.92 - 7.60 K/uL [facility] ABSOLUTE LYMPHS 1.38 0.72 - 4.10 K/uL [facility] ABSOLUTE MONOS 1.25(H) 0.16 - 1.10 K/uL [facility] ABSOLUTE EOS 0.10 0.00 - 0.50 K/uL [facility] ABSOLUTE BASOS 0.02 0.00 - 0.15 K/uL [facility] Granulocytes, immature 0.03 0.00 - 0.09 K/uL [facility] Blood 10/16/2024 1:43 PM EDT 10/16/2024 1:46 PM EDT us Broussard W Mica DO LAB BLOOD ORDERABLES Final Result [address] [phone] from Last 3 Months Insurance [employer] PPO MEDICARE REPLACEMENT [employer] PPO MEDICARE REPLACEMENT [employer] PPO MEDICARE REPLACEMENT [employer] PPO MEDICARE REPLACEMENT [employer] PPO MEDICARE REPLACEMENT [employer] PPO MEDICARE REPLACEMENT Care Teams Stringing Machine Operator Relationship Specialty Start Date End Date Richmond Avelar MD [address] [place] [phone] PCP - General Family Medicine 11/03/22 Bobo Nino DO [address] [place] [address] [email or web address] Primary Oncologist Hematology and Oncology 10/20/22 Carol Bruno CNP [address] [place] [address] [email or web address] Nurse Practitioner Medical Oncology 10/25/23 Additional Source Comments The information contained in this document represents components of the legal health record. It is not the complete legal health record.[facility]
--- OUTSIDE RECORDS SUMMARY | 2024-11-21 15:34 | XMS_ITS | Clinical Summary ---
Author Organization [facility] Address [address] [place] [address] Care Team Providers Care Compressor Battery Pellets Name Role Phone Bill Weiss MD Primary Care Provider [phone] Social History Tobacco Use Types Packs/Day Years Used Date Smoking Tobacco: Never Assessed Sex and Gender Information Value Date Recorded Sex Assigned at Not on file Legal Sex Male 7:37 PM EDT Gender Identity Not on file Sexual Orientation Not on file Plan of Treatment Health Maintenance Due Date Last Done Comments Advance Care Planning 1945 DTaP/Tdap/Td Vaccines (1 - Tdap) 08/22/1963 [...] this topic Medical Devices Implanted Type Area Cnc Field Service Engineer Device Identifier Shelf Expiration Date Model / Serial / Lot [id number] Lens Iol +20 Cezar Mod C Bcnvx 13mm 6mm Posterior Chamber 1 - [id number] Implanted:Qty: 1 on 03/04/[facility] [employer] [id number] / [id number] / Description:DCB00 [id number] Lens Iol +18.5 Cezar Mod C Bcnvx 13mm 6mm Posterior Chamber 1 - [id number] Implanted:Qty: 1 on 03/18/2020 by Yusuf Carson MD at [facility], [place] [employer] [id number] / [id number] / Insurance AETNA MGD MEDICARE Care Teams Compressor Battery Pellets Relationship Specialty Start Date End Date Bill Weiss MD [address] [place] [id number] PCP - General Internal Medicine 02/28/20
--- OUTSIDE RECORDS SUMMARY | 2024-11-21 15:34 | XMS_ITS | Encounter Summary ---
Author Organization [facility] Address [address] [place] [address] Care Team Providers Care Rivet Passer Name Role Phone Bill Weiss MD Primary Care Provider [phone] Encounter Details Date Type Department Care Team (Late st Contact Info) Description 09/12/2020 Erroneous Encounter [facility]PT [address] [place] [address] Provider, MD Kristin Social History Tobacco Use [...] on filedocumented in this encounter Care Teams Rivet Passer Relationship Specialty Start Date End Date Bill Weiss MD [address] [place] [address] PCP - General Internal Medicine 02/28/20 documented as of this encounter
--- OUTSIDE RECORDS SUMMARY | 2024-11-21 15:34 | XMS_ITS | Encounter Summary ---
Author Organization [facility] Address [address] [place] [address] Care Team Providers Care Window Sash Installer Name Role Phone Bill Weiss MD Primary Care Provider [phone] Encounter Details Date Type Department Care Team ([facility] st Contact Info) Description 01/09/2021 Procedure Pass [facility], Radiology (CT Scan) [address] [place] [address] Social History Tobacco Use Types Packs/Day Years [...] on filedocumented in this encounter Care Teams Window Sash Installer Relationship Specialty Start Date End Date Bill Weiss MD [address] [place] [address] PCP - General 01/09/21 documented as of this encounter
--- OUTSIDE RECORDS SUMMARY | 2024-11-21 15:34 | XMS_ITS | Encounter Summary ---
Author Organization [facility] Address [address] [place] [address] Care Team Providers Care Mica Layer Name Role Phone Bill Weiss MD Primary Care Provider Encounter Details Date Type Department Care Team (Late st Contact Info) Description 12/23/2020 Erroneous Encounter [facility]PT [address] [place] [address] Richmond Carrington III, MD [address] [place] [address] Social History Tobacco Use Types Packs/Day Years [...] on filedocumented in this encounter Care Teams Mica Layer Relationship Specialty Start Date End Date Bill Weiss MD [address] [place] [address] PCP - General Internal Medicine 02/28/20 documented as of this encounter
--- OUTSIDE RECORDS SUMMARY | 2024-11-21 15:34 | XMS_ITS | Encounter Summary ---
Author Organization [facility] Address [address] [facility] [address] [place] [address] Phone Care Team Providers Care Pin Setter Name Role Phone Mica Bobo Brenner DO Unavailable Richmond Avelar MD Primary Care Provider Aixa Mclain BATTERY PLATE REMOVER Unavailable Carol Bruno COOK RESTAURANT Unavailable Encounter Details Date Type Department Care Team (Late st Contact Info) Description 12/08/2022 Procedure Pass [facility] [address] [place] [address] Social History Tobacco Use Types Packs/Day Years Used Date Smoking Tobacco: Never Smokeless Tobacco: Never Alcohol Use Standard Drinks/Week Comments Yes 0 (1 standard drink = 0.6 oz pure [...] as of this encounter Plan of Treatment Upcoming Encounters Date Type Department Care Team (Late st Contact Info) Description 01/18/2025 2:30 PM EDT Appointment [facility] [address] [place] [address] Bobo Nino, DO [address] [place] [address] [email or web address] 01/18/2025 3:30 PM EDT Office Visit [facility] [place] [address] [place] [address] Bobo Nino, DO [address] [place] [address] [email or web address] documented as of this encounter Visit Diagnoses Not on filedocumented in this encounter Care Teams Pin Setter Relationship Specialty Start Date End Date Richmond Avelar MD [address] [place] [address] PCP - General Family Medicine 11/03/22 Bobo Nino DO [address] [place] [address] [email or web address] Primary Oncologist Hematology and Oncology 10/20/22 Aixa Mclain FNP [address] [place] [address] [email or web address] Nurse Practitioner Medical Oncology 01/26/23 07/16/24 Carol Bruno CNP [address] [place] [id number] [email or web address] Nurse Practitioner Medical Oncology 10/25/23 documented as of this encounter Additional Source Comments The information contained in this document represents components of the legal health record. It is not the complete legal health record.[facility]
--- OUTSIDE RECORDS SUMMARY | 2024-11-21 15:34 | XMS_ITS ---
Author Organization [facility] Address [address] [place] [address] Phone Care Team Providers Care Trousseau Consultant Name Role Phone Bobo Nino DO Unavailable [phone] Richmond Avelar MD Primary Care Provider Carol Bruno MANAGER LATIN Unavailable Active Problems Patient Care Coordination No te [...] of nephrolithiasis 11/03/2022 BMI 40.0-44.9, adult 11/03/2022 Current Treatment and Therapy Plans CECILIA Plan Start Date:11/10/2022 Plan Provider:Bobo Nino DO Linked Problems Malignant neoplasm of prosta te Treatment Medications leuprolide (3 month) (ELIGAR D 3 MONTH) Past Treatment and Therapy Plans TREATMENT PLAN Plan Name Start Date Discontinue Date Treatment Medications Discontinue Reason Plan Provider Cycles ABIRATERONE 12/17/2022 09/24/2024 abiraterone (ZYTIGA) a. Therapy Complete Bobo Nino DO 1 of 4 cycles started
== END 2024-11-21 14:49 | disposition home or self-care (01) ==
LOC: HO.HMCFM 14:22
PROVIDERS: PCP Family Medicine; Visit Provider Family Medicine
DX: I10 Essential (primary) hypertension (principal); N28.89 Other specified disorders of kidney and ureter; D64.9 Anemia, unspecified; G47.30 Sleep apnea, unspecified

== ENCOUNTER → 2024-11-21 14:21 | Outpatient (BNVA) | payer MEDICARE, SELFPAY | PROVIDERS: PCP Family Medicine; Visit Provider Family Medicine | DX: I10 Essential (primary) hypertension (principal); N28.89 Other specified disorders of kidney and ureter; D64.9 Anemia, unspecified; G47.30 Sleep apnea, unspecified | CPT/HCPCS: 99212 ==

== ENCOUNTER 2025-01-10 09:27 | Outpatient (AMB) | payer MEDICARE, SELFPAY ==
[2025-01-10 09:38] VITALS: BP 102/60; PULSE 93; O2SAT 97; BMI 41.0
--- NOTE | 2025-01-10 09:38 | MHC.OFFVIS ---
Vital Signs 01/10/25 09:38 Height 5 ft 11 in Weight 294 lb BMI 41.0 BP 102/60 Blood Pressure Location Rt brachial Position Sitting Pulse 93 Pulse Source Pulse Oximeter Pulse Oximetry (%) 97 Oxygen Delivery Method Room Air Intake Visit Reasons: hypoxemia Intake Note: pt is here for follow up and states he states good days and bad days , the oxygen at night on 2 liters has helped a lot. Backup Engineer Required: No Wire Hanger: Wire Hanger offered & declined Allergies topical bacitricin Allergy (Mild, Uncoded 01/10/25 09:52) rash Medication List - Last Reconciled 01/10/25 by Jac Cole MD abiraterone 1,000 mg PO DAILY amlodipine 10 mg (2 x 5 mg) PO DAILY 90 days aspirin (Adult Aspirin Regimen) 81 mg PO DAILY cetirizine 10 mg PO DAILY PRN cholecalciferol (vitamin D3) 50 mcg PO DAILY colchicine 0.6 mg PO DAILY PRN finasteride 5 mg PO DAILY fluticasone propionate 50 mcg/actuation (Flonase Allergy Relief) 1 spray intranasal Q12H 30 days lisinopril 20 mg PO DAILY 90 days metoprolol tartrate 25 mg PO BID Oxygen Home Use O2 at 2lpm via n/c while sleeping potassium citrate ER 20 mEq PO TID prednisone 5 mg PO DAILY rosuvastatin 10 mg PO DAILY tamsulosin 0.4 mg PO DAILY Do you need a note to return to daycare/school/sports/work: No HPI HPI hypoxemia: Details: This 79 years old gentleman, comes for follow-up for his obstructive sleep apnea and nocturnal hypoxemia. He has morbid obesity with current BMI of 41 . He does have obstructive sleep apnea, but could not use the CPAP, as he has to wake up frequently during the night to take care of his sick . With the use of O2 at night he feels much better , He has to wake up a few times but goes right back to sleep. Denies any daytime sleepiness. In general his breathing has been good. He does have intermittent nasal congestion controlled with cetirizine 10 mg p.r.n.. [facility] Medical History Obesity hypoventilation syndrome Morbid obesity Restrictive lung disease FH: cholecystectomy Arthritis of right ankle Prostate cancer High blood pressure Surgical History History of cardiac cath History of bilateral knee replacement History of carpal tunnel surgery History of ankle surgery Family History Mother Cardiovascular disease Cancer Father High blood pressure Social History Household Members: Spouse Housing: Other Housing Other:: cottage Are you a primary wound care physician to a significant other at home: Yes Do you presently have visiting nurse or other home services: No 75 years or older and lives alone: No Alcohol intake: current Alcohol intake frequency: holidays/special occasions only Patient Tobacco Use Status: Never used Tobacco e-Cigarette/Vaping Use: Never Used Second Hand Smoke Exposure: No Special nikkie needs: Yes Special nikkie accommodation details: [facility] Connoshoer service: No Current occupational status: retired Cognitive needs: No Hearing needs: Yes Vision needs: Yes (patient wears glasses) Review of Systems Const All systems reviewed & are unremarkable except as noted in HPI and below Eyes Reports no additional complaints ENT Reports nasal congestion and Reports nasal discharge Card Denies chest pain, Denies irregular heart rhythm and Denies leg edema Resp Reports as per HPI GI Reports no additional complaints Reports no additional complaints Musc Reports no additional complaints Skin/Breast Reports system reviewed and no additional complaints, except as documented Neuro Reports no additional complaints Psych Reports no additional complaints Endo Reports no additional complaints Aller/Immun Reports no additional complaints Physical Exam Vital Signs: Last Vital Signs Pulse 93 01/10/25 09:38 BP 102/60 01/10/25 09:38 Pulse Ox 97 01/10/25 09:38 Oxygen Delivery Method Room Air 01/10/25 09:38 BMI result Body Mass Index 41.0 Const General: comfortable, no acute distress, alert and awake; No healthy appearing (HE IS MORBIDLY OBESE) Orientation/consciousness: patient oriented x3 HEENT Head: Yes normal to inspection General nose exam: No nasal polyps present and No nasal discharge present Face and sinus: Yes sinuses nontender Mouth: oropharynx normal Throat: Yes posterior oropharynx normal Eyes General: appearance normal, both eyes and all related structures Neck Neck: Yes normal visual inspection, Yes no lymphadenopathy, Yes trachea midline and Yes no JVD Thyroid: Thyroid normal Chest Chest palpation & inspection: normal inspection of the chest, normal palpation of entire chest wall and no tenderness Resp Other: PERCUSSION NOTE IS NOT PERCEPTIBLE DUE TO THICK CHEST WALL BREATH SOUNDS ARE VERY DECREASED OVER THE LOWER HALF OF THE . LUNGS NO AUDIBLE WHEEZES RHONCHI OR CREPITATIONS. Cardio Palpation: normal PMI Rate: regular rate Rhythm: regular rhythm Heart sounds: no gallops and no murmurs GI Palpation (GI): Soft to palpation, Tenderness to palpation present (GI), No hepatosplenomegaly present, Palpable mass present and Other GI palpation findings present (ABDOMEN IS GROSSLY OBESE AND PROTUBERANT) Auscultation: normal bowel sounds Back/Spine/Pelvis Thoracic/Lumbar Spine: thoracic and lumbar spine normal to inspection Skin General skin exam: no rashes or lesions noted Neuro General: patient oriented x3 and no focal motor deficits Cranial nerves: Yes CN's II-XII intact bilaterally Extrem General: Yes normal to inspection, Yes no clubbing, cyanosis or edema and Yes no calf tenderness Psych Appearance: grossly normal and well kempt Speech and movement: Normal speech and movement present Assessment & Plan Assessment & Plan (1) Obesity hypoventilation syndrome: Comment: EXPECTED TO HAVE OBESITY RELATED HYPOVENTILATION SYNDROME. Code(s): E66.2 - Morbid (severe) obesity with alveolar hypoventilation Category: Medical Plan: Doing very well with the use of O2 2 L/minute at night. (2) Restrictive lung disease: Comment: THIS GENTLEMAN HAS MORBID OBESITY. HE HAS SEVERE RESTRICTIVE PULMONARY DISORDER Code(s): J98.4 - Other disorders of lung Category: Medical Plan: Advised to continue losing some weight. Do deep breathing exercises at least 3 times a day during the daytime. (3) Nocturnal hypoxemia: Comment: PATIENT HAS INCREASED SHORTNESS OF BREATH AT NIGHT. CLINICALLY HAS OBESITY RELATED HYPOVENTILATION SYNDROME . HE HAS NOCTURNAL HYPOXEMIA , CONFIRMED WITH OVERNIGHT OXIMETRY RECORDING Code(s): G47.34 - Idiopathic sleep related nonobstructive alveolar hypoventilation Category: Medical Plan: NOW THAT HE IS USING O2 2 L/MINUTE AT NIGHT HE IS FEELING MUCH BETTER. (4) Obstructive sleep apnea: Comment: severe GONZALEZ w/ nocturnal hypoxemia. Code(s): G47.33 - Obstructive sleep apnea (adult) (pediatric) Category: Medical Plan: COULD NOT USE THE CPAP, NOW JUST USING THE O2 2 L/MINUTE AT NIGHT AND IS FEELING BETTER Coding Level of Care Code Est Pt Level 3 (50236) Diagnoses Obesity hypoventilation syndrome E66.2 Restrictive lung disease J98.4 Nocturnal hypoxemia G47.34 Obstructive sleep apnea G47.33
--- OUTSIDE RECORDS SUMMARY | 2025-01-10 10:46 | XMS_ITS ---
Author Organization [facility] Address [address] [place] [address] Phone Care Team Providers Care Machine Chocolate Molder Name Role Phone Bobo Nino DO Unavailable [phone] Richmond Avelar MD Primary Care Provider Carol Bruno NON MORSE INTERCEPT TECHNICIAN Unavailable Active Problems Patient Care Coordination No [...] adult 11/03/2022 Current Treatment and Therapy Plans LORY* Plan Start Date:11/10/2022 Plan Provider:Bobo Nino DO Linked Problems Malignant neoplasm of prosta te Treatment Medications leuprolide acetate (3 month) (ELIGARD 3 MONTH) Past Treatment and Therapy Plans TREATMENT PLAN Plan Name Start Date Discontinue Date Treatment Medications Discontinue Reason Plan Provider Cycles ABIRATERONE 12/17/2022 09/24/2024 abiraterone (ZYTIGA) a. Therapy Complete Bobo Nino DO 1 of 4 cycles started
--- OUTSIDE RECORDS SUMMARY | 2025-01-10 10:46 | XMS_ITS | Data Portability ---
Author Organization [place] [facility], All[facility] Address [address] [address] Care Team Providers Care Epic Cadence Analyst Name Role Phone DWAYNE ANSARI Primary Care Provider Assessment Encounter Date Assessment Date Assessment LastModified by Organization Details LastModified Time 09/13/2024 09/13/2024 1. Parotid Gland Cysts The patient presents with small right parotid gland cysts, which have shown no significant changes or concerning symptoms. A follow-up ultrasound is planned for October or November to monitor for growth. If stability is maintained, intervention may not be necessary. However, if growth occurs, further evaluation with potential biopsy could be considered. 2. Prostate Cancer The patient's prostate cancer management continues under the care of Dr. Nino and Dr. Fuentes. No additional actions were taken during this visit regarding this condition. [email or web address] Not available 09/13/2024 14:56:13 Plan of Treatment Reminders Order Date Submit Date Provider Last Modified By Organization Details Last Modified Time Details Appointments None recorded . Lab None recorded . Referral None recorded . Procedures None recorded . Surgeries None recorded . Imaging US, neck, soft tissue - Please book in October 025 09/14/19 [facility] [place], [address] , [facility] [address], [place], [address], 14:20:53 Medication Orders None recorded . Patient TargetsNo targets recorded. Patient Instructions Encounter Date Encounter Id Patient Instructions Last Modified By Organization Details Last Modified Time 09/13/2024 [id number] Please note: Parts of this encounter note have been generated by AI based on audio conversation. Patient consent was required prior to utilizing this technology. Content review was required prior to finalizing the note. [email or web address] Not available 09/13/2024 14:51:34 Reason for Referral None Reported. Results Created Date Observation Date Name Description Value Unit Range Abnormal Flag Note LastModifiedBy Organization Detail LastModifiedTime 10/26/1910/23/2024 US, neck, soft tissu e No observ ation record ed. [email or web address] [facility] [place] [address] [facility], [place], [address], 10/26/2024 15:12:08 10/28/1906/15/2024 CT, angio gram, heart , w/ contr ast No observ ation record ed. [email or web address] Not Available 2024 09:49:38 11/01/1909/13/2024 US, abdom en + pelvi s No observ ation record ed. BARCODE Not Available 2024 11:03:19 12/02/1910/23/2024 US, neck, soft tissu e No observ ation record ed. [email or web address] [facility] [place] [address], [place], [address], 12/01/2024 17:05:06 12/02/1910/23/2024 US, neck, soft tissu e No observ ation record ed. BARCODE [facility] [place] [address] [place] [address], [address], 12/01/2024 15:44:47 Result Notes None recorded. 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 Procedures Surgical History Date Name Laterality Status Provider Name and Address Organization Details Recorded Time replacement of bilateral knee joints completed Kim Dahl [place] - [facility] 09/13/2024 14:44:00 cholecystectomy completed Kim Dahl [facility] 09/13/2024 14:44:33 re-release of carpal tunnel completed Kim Dahl [facility] 09/13/2024 14:44:50 hernia repair completed Kim Dahl [facility] 09/13/2024 14:45:06 excision of right kidney completed Kim Dahl [facility] 09/13/2024 14:45:26 CT guided percutaneous microwave ablation of lesion of left kidney completed Kim Dahl [place] [facility] 09/13/2024 14:46:00 Imaging Results None recorded. Procedure Notes None recorded. Medical Equipment None Reported. Allergies Allergen ID Allergen Name Allergen Category Reaction Reaction Severity Criticality Documentation Date Start Date Code Code System Note Provider Name and Address Organization Details Recorded Time 530227 Bactroban medicatio n Not available Not available Not available 09/13/2024 77810 1 RxNorm Kim black [place] [facility] 14:42:34 Medications Name Sig Start Date Stop Date Status Note LastModified by Organization Details LastModified Time amoxicillin 500 mg capsule TAKE 1 CAPSULE BY MOUTH 3 TIMES A DAY UNTIL GONE 09/13 completed Not Available Not Available Not Available potassium chloride ER 10 mEq capsule,ext ended release TAKE 1 CAPSULE BY MOUTH FOUR TIMES A DAY 09/13 completed Not Available Not Available Not Available cetirizine 10 mg tablet TAKE 1 [...] Not Available Not Available No t Available lorazepam 0.5 mg tablet TAKE 1 TABLET BY MOUTH ONCE NEEDED FOR PROCEDURE FOR 1 DAY 09/13 completed Not Available Not Available Not Available [...] TAKE 1 TABLET BY MOUTH EVERY DAY 09/13 completed Not Available Not Available Not Available doxycycline hyclate 100 mg tablet TAKE 1 TABLET TWICE A DAY BY ORAL ROUTE WITH MEAL(S) FOR 14 DAYS. 09/13 completed Not Available Not Available Not Available finasteride 5 mg tablet TAKE 1 TABLET BY MOUTH EVERY DAY active Not Available Not Available No t Available oxycodone 5 mg tablet TAKE 1 TABLET BY MOUTH EVERY 4 HOURS NEEDED FOR PAIN 09/13 completed Not Available Not Available Not Available rosuvastati n 10 mg tablet TAKE 1 TABLET BY MOUTH EVERY DAY active Not Available Not Available No t Available metoprolol tartrate 25 mg tablet TAKE 1 TABLET BY MOUTH TWICE A DAY active Not Available Not Available No t Available abiraterone 250 mg tablet Take 4 tablets every day by oral route. active Not Available Not Available No t Available [facility] 205.5 mcg (0.15 %) nasal spray INSTILL 1 SPRAY INTO EACH NOSTRIL TWICE A DAY FOR 30 DAYS 09/13 completed Not Available Not Available Not Available Vitals Date Recorded Body height Body mass index (BMI) Body weight Provider Name and Address Organization Details Last Updated DateTime 09/13/2024 177.8 cm 42.9 kg/m2 452849.12 g Kim Dahl [place] - [facility] 09/13/2024 14:40:35 Social History None recorded. Functional Status None recorded. Mental Status None recorded. Family History Nothing Reported. 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 828387776 D37.857 9569881 Parotid cyst 204571668 K 11.6 9450105 History of malignant neoplasm of prostate 388662014 Z85.46 09453 Health Concerns Section Related Observation LastModified by Organization Detai ls LastModified Time None Recorded Concern Status LastModified by Organization Details LastModified Time None Recorded Advance Directives Directive None Recorded Payers Insurance Date Sequence Insurance Name Policy Number Policy Flores Covered Member ID Flores Member ID Guarantor Name 09/13/2024 1 [employer] (MEDICARE REPLACEMENT/ ADVANTAGE - PPO) [id number] Karmen Jackson [id number] Karmen Jackson Notes Date Note Type Note Provider Name and Address Organization Details Recorded Time 09/13/2024 text/html The patient is an 79-year-old male presenting with cysts in the right parotid area. Upon initial observation earlier this year, the patient noted the presence of swelling that is not painful. The ultrasound conducted in March identified two cysts in the right parotid gland with measurements of 0.9 x 0.4 x 0.6 cm and 0.6 x 0.4 x 0.5 cm. The patient reports that the cyst size fluctuates slightly but lacks associated discomfort or functional impairment related to eating, drinking, or swallowing. His medical history includes ongoing management for prostate cancer. JENI LEBLANC MD [address] [place] [address], [phone], [facility] - [facility] 09/13/2024 14:56:41
--- OUTSIDE RECORDS SUMMARY | 2025-01-10 10:46 | XMS_ITS | Clinical Summary ---
Author Organization [facility] Address [address] [address] Phone Care Team Providers Care Contracts Manager Name Role Phone Bobo Nino Elidia DO Unavailable [phone] Richmond Avelar MD Primary Care Provider Carol [...] (FLONASE) 50 mcg/actuation nasal spray as needed. 12/30/2022 Active cetirizine (ZYRTEC) 10 MG tablet Take by mouth as needed. 12/30/2022 Active aspirin 81 mg chewable tablet Take 81 mg by mouth every other day. Active predniSONE (DELTASONE) 5 MG tabletIndicatio ns:Malignant neoplasm of prostate TAKE 1 TABLET BY MOUTH DAILY WITH BREAKFAST. START WHEN YOU START ABIRATERONE. 30 tablet 12/04/2024 Active abiraterone (ZYTIGA) 250 mg TabIndications: Malignant neoplasm of prostate Take 4 tablets (1,000 mg total) by mouth daily. 120 tablet 12/04/2024 Active Active Problems Patient Care Coordination No [...] Encounters Date Type Department Care Team Description 12/30/2024 Refill [facility] at [address] [address] Calista Brown, CAT SITTER Medication Refill 12/04/2024 Orders Only [facility] at [address] [address] Calista Brown, CAT SITTER Malignant neoplasm of prostate 12/04/2024 Refill [facility] at [address] [address] Reshma Byrnes, case worker Refill 12/03/2024 Refill [facility] at [address] [address] Aixa Mclain, CAT SITTER Medication Refill 10/16/2024 3:00 PM EDT Office Visit [facility] at [address] [address] Bobo Nino, Malignant neoplasm of prostate (Primary Dx) 10/16/2024 1:43 PM EDT - 10/16/2024 11:59 PM EDT Hospital Encounter [facility] [address] [place] [address] Bobo Nino W, DO Discharge Disposition: Home or Self Care from Last 3 Months Immunizations Immunization Administration [...] 2:30 PM EDT Appointment [facility] [address] [place] [address] Bobo Nino, DO [address] [place] [address] [email or web address] 01/18/2025 3:30 PM EDT Office Visit [facility] [address] [place] [address] Bobo Nino, DO [address] [place] [address] [email or web address] Health Maintenance Due Date Last Done Comments Adult Td,Tdap Booster 1945 LIPID PANEL 1944 DEPRESSION SCREENING 1956 PNEUMOCOCCAL VACCINES (50+ years) (1 of 2 - PCV) 08/22/1963 ZOSTER VACCINES (1 of 2) 08/22/1963 INFLUENZA VACCINE (#1) 2024 , 01/14/2023, 01/07/2022 COVID-19 VACCINE (2024- season) 2024 01/14/2023, 01/07/2022, 05/24/2020, Additional history exists RSV [...] EDT) SODIUM 145 133 - 146 mmol/L [facility] POTASSIUM 4.4 3.3 - 5.1 mmol/L [facility] CHLORIDE 106 96 - 108 mmol/L [facility] CO2 27 21 - 35 mmol/L [facility] BUN 29(H) 6 - 19 mg/dL [facility] CREATININE 1.20 0.5 - 1.5 mg/dL [facility] GLUCOSE 92 70 - 99 mg/dL [facility] ALBUMIN 3.6(L) 3.9 - 4.8 g/dL [facility] TOTAL PROTEIN 6.0(L) 6.5 - 8.0 g/dL [facility] CALCIUM 9.2 8.4 - 10.3 mg/dL [facility] ALKALINE PHOSPHATASE 50 39 - 117 U/L [facility] TOTAL BILIRUBIN 0.5 0.0 - 1.2 mg/dL [facility] AST 11 0 - 37 U/L [facility] ALT <5 0 - 40 U/L [facility] GLOBULIN 2.4 1 - 4.8 g/dL [facility] EGFR 61 >59 mL/min/1.7 3m2 [facility] Comment:Estimated glomerular filtration rate calculated using the CKD-EPI refit equation. ANION GAP 16 10 - 20 mmol/L [facility] Blood 10/16/2024 1:43 PM EDT 10/16/2024 1:46 PM EDT us Bobo Nino DO LAB BLOOD ORDERABLES Final Result [facility] [address] [place] [address] * PSA diagnostic (monitoring) (10/16/2024 1:43 PM EDT) PSA <0.01 0 - 4.00 ng/mL [facility] Comment: Test Methodology Martha [id number] Patient results determined by assays using different manufacturers or methods may not be comparable. Blood 10/16/2024 1:43 PM EDT 10/16/2024 1:46 PM EDT us Broussard Elidia Nino DO LAB BLOOD ORDERABLES Final Result [facility] [address] [place] [address] * (ABNORMAL) CBC and differential (10/16/2024 1:43 PM EDT) WBC 8.89 4.00 - 11.00 K/uL [facility] RBC 4.93 4.50 - 5.90 M/uL [facility] HGB 12.7(L) 13.5 - 17.5 g/dL [facility] HCT 42.7 41.0 - 53.0 % [facility] PLT 189 150 - 450 K/uL [facility] MCV 86.6 80.0 - 100.0 fL [facility] MCH 25.8(L) 27.0 - 31.0 pg [facility] MCHC 29.7(L) 32.0 - 36.0 g/dL [facility] RDW 16.6(H) 11.5 - 14.5 % [facility] MPV 10.2 8.4 - 12.0 fL [facility] NRBC 0.00 0.00 /100 WBCs [facility] ABSOLUTE NRBC 0.00 0.00 K/uL [facility] DIFF METHOD Auto [facility] NEUTS 68.8 48.0 - 76.0 % [facility] LYMPHS 15.5(L) 18.0 - 41.0 % [facility] MONOS 14.1(H) 4.0 - 11.0 % [facility] EOS 1.1 0.0 - 5.0 % [facility] BASOS 0.2 0.0 - 1.5 % [facility] Granulocytes, immature (%) 0.3 0.0 - 0.9 % [facility] ABSOLUTE NEUTS 6.11 1.92 - 7.60 K/uL [facility] ABSOLUTE LYMPHS 1.38 0.72 - 4.10 K/uL [facility] ABSOLUTE MONOS 1.25(H) 0.16 - 1.10 K/uL [facility] ABSOLUTE EOS 0.10 0.00 - 0.50 K/uL [facility] ABSOLUTE BASOS 0.02 0.00 - 0.15 K/uL [facility] Granulocytes, immature 0.03 0.00 - 0.09 K/uL [facility] Blood 10/16/2024 1:43 PM EDT 10/16/2024 1:46 PM EDT us Bobo Nino DO LAB BLOOD ORDERABLES Final Result [facility] [address] [place] [address] from Last 3 Months Insurance [employer] PPO MEDICARE REPLACEMENT AET[employer] O MEDICARE REPLACEMENT [employer] PPO MEDICARE REPLACEMENT [employer] PPO MEDICARE REPLACEMENT [employer] PPO MEDICARE REPLACEMENT [employer] PPO MEDICARE REPLACEMENT Care Teams Contracts Manager Relationship Specialty Start Date End Date Richmond Avelar MD [address] [place] [address] PCP - General Family Medicine 11/03/22 Bobo Nino DO [address] [place] [address] [email or web address] Primary Oncologist Hematology and Oncology 10/20/22 Carol Bruno CNP [address] [place] [address] [email or web address] Nurse Practitioner Medical Oncology 10/25/23 Additional Source Comments The information contained in this document represents components of the legal health record. It is not the complete legal health record.[facility]
--- OUTSIDE RECORDS SUMMARY | 2025-01-10 10:47 | XMS_ITS | Encounter Summary ---
Author Organization [facility] Address [address] [place] [address] Phone Care Team Providers Care Slurry Control Tender Name Role Phone Bobo Nino Elidia DO Unavailable [phone] Richmond Avelar MD Primary Care Provider Carol Bruno CNP Unavailable Reason for Visit * Reason Comments Medication Refill Encounter Details Date Type Department Care Team (Late st Contact Info) Description 12/30/2024 Refill [facility] at [address] [address] Calista Brown FNP [address] [place] [address] [email or web address] Medication Refill Social History Tobacco Use Types Packs/Day Years Used Date Smoking Tobacco: Never Smokeless Tobacco: Never Alcohol Use Standard Drinks/Week Comments Yes 2 [...] on file documented as of this encounter Progress Notes * Yara John - 01/02/2025 7:14 AM EDT TO:CARLENE documented in this encounter Plan of Treatment Upcoming Encounters Date Type Department Care Team (Late st Contact Info) Description 01/18/2025 2:30 PM EDT Appointment [facility] [address] [place] [address] Bobo Nino DO [address] [place] [address] [email or web address] 01/18/2025 3:30 PM EDT Office Visit [facility] at [address] [address] Bobo Nino DO [address] [place] [address] [email or web address] documented as of this encounter Visit Diagnoses Diagnosis Malignant neoplasm of prostate documented in this encounter Care Teams Slurry Control Tender Relationship Specialty Start Date End Date Richmond Avelar MD [address] [place] [address] PCP - General Family Medicine 11/03/22 Bobo Nino DO [address] [place] [address] [email or web address] Primary Oncologist Hematology and Oncology 10/20/22 Carol Bruno CNP [address] [place] [address] [email or web address] Nurse Practitioner Medical Oncology 10/25/23 documented as of this encounter Additional Source Comments The information contained in this document represents components of the legal health record. It is not the complete legal health record.[facility]
--- OUTSIDE RECORDS SUMMARY | 2025-01-10 10:47 | XMS_ITS | Clinical Summary ---
Author Organization [employer] [facility] Address [address] [place] [address] Care Team Providers Care Geophysical Data Technician Name Role Phone Bill Weiss MD Primary Care Provider [phone] Allergies Active Allergy Reactions Criticality Noted Date [...] 1-dose 75+ series) 08/22/2019 COVID-19 Vaccine (3 2024-2 6 season) 2024 05/24/2020, 04/26/2020 Influenza Vaccine (#1) 2024 HIB [...] age to complete this topic Insurance [place] Care Teams Geophysical Data Technician Relationship Specialty Start Date End Date Bill Weiss MD [address] [place] [address] PCP - General 01/09/21
--- OUTSIDE RECORDS SUMMARY | 2025-01-10 10:47 | XMS_ITS | Encounter Summary ---
Author Organization [facility] Address [address] [place] [address] Phone Care Team Providers Care Dialysis Biomed Technician Name Role Phone Mica Bobo Brenner DO Unavailable [phone] Richmond Avelar MD Primary Care Provider Aixa Mclain CLINICAL DENTAL TECHNICIAN Unavailable Carol Bruno SOURCING ASSOCIATE Unavailable Encounter Details Date Type Department Care Team (Late st Contact Info) Description 12/08/2022 Procedure Pass [facility] [address] [place] [address] Social History Tobacco Use Types Packs/Day Years [...] 2:30 PM EDT Appointment [facility] [address] [place] [address] Bobo Nino, DO [address] [place] [address] [email or web address] 01/18/2025 3:30 PM EDT Office Visit [facility] [place] [address] [place] [address] Bobo Nino, DO [address] [place] [address] [email or web address] documented as of this encounter Visit Diagnoses Not on filedocumented in this encounter Care Teams Dialysis Biomed Technician Relationship Specialty Start Date End Date Richmond Avelar MD [address] [place] [address] PCP - General Family Medicine 11/03/22 Bobo Nino DO [address] [place] [address] [email or web address] Primary Oncologist Hematology and Oncology 10/20/22 Aixa Mclain FNP [address] [place] [address] [email or web address] Nurse Practitioner Medical Oncology 01/26/23 07/16/24 Carol Bruno CNP [address] [place] [address] [email or web address] Nurse Practitioner Medical Oncology 10/25/23 documented as of this encounter Additional Source Comments The information contained in this document represents components of the legal health record. It is not the complete legal health record.[facility]
--- OUTSIDE RECORDS SUMMARY | 2025-01-10 10:47 | XMS_ITS | Encounter Summary ---
Author Organization [facility] Address [address] [place] [address] Care Team Providers Care Hydrology Technician Name Role Phone Bill Weiss MD Primary Care Provider [phone] Encounter Details Date Type Department Care Team ([facility] st Contact Info) Description 01/09/2021 Procedure Pass [facility], Radiology (CT Scan) [address] [place] [address] Social History Tobacco Use Types Packs/Day Years [...] on filedocumented in this encounter Care Teams Hydrology Technician Relationship Specialty Start Date End Date Bill Weiss MD [address] [place] [address] PCP - General 01/09/21 documented as of this encounter
== END 2025-01-10 09:53 | disposition home or self-care (01) ==
LOC: HO.HPS 09:28
PROVIDERS: PCP Family Medicine; Visit Provider Internal Medicine
DX: E66.2 Morbid (severe) obesity with alveolar hypoventilation (principal); J98.4 Other disorders of lung; G47.34 Idiopathic sleep related nonobstructive alveolar hypoventilation; G47.33 Obstructive sleep apnea (adult) (pediatric)
CPT/HCPCS: 99213

== ENCOUNTER → 2025-01-10 09:27 | Outpatient (BNVA) | payer MEDICARE, SELFPAY | PROVIDERS: PCP Family Medicine; Visit Provider Internal Medicine | DX: J98.4 Other disorders of lung (principal); G47.34 Idiopathic sleep related nonobstructive alveolar hypoventilation; Z99.89 Dependence on other enabling machines and devices; E66.9 Obesity, unspecified | CPT/HCPCS: 99212 ==

== ENCOUNTER 2025-01-24 14:13 | Outpatient (AMB) | payer MEDICARE, SELFPAY ==
--- OUTSIDE RECORDS SUMMARY | 2025-01-18 13:25 | XMS_ITS | Encounter Summary ---
Author Organization [facility] Address [address] [place] [address] Phone Care Team Providers Care Crop Or Grain Farmer Name Role Phone Bobo Nino DO Unavailable [phone] Richmond Avelar MD Primary Care Provider Carol Bruno SUPERVISOR CELL ROOM Unavailable Encounter Details Date Type Department Care Team (Latest Contact Info) Description 01/18/2025 2:25 PM EDT - 01/18/2025 11:59 PM EDT Hospital Encounter [facility] [address] [place] [address] Bobo Nino DO [address] [place] [address] [email or web address] Discharge Disposition: Home or Self Care Social History Tobacco Use Types Packs/Day Years [...] with a working camera? Not on file 08 /03/2022 Sex and Gender Information Value Date Recorded Sex Assigned at Not on file Legal Sex Male 1:07 PM EDT Gender Identity Not on file Sexual Orientation Not on file documented as of this encounter Medications at Time of Discharge abiraterone (ZYTIGA) 250 mg TabIndications:Ma lignant neoplasm of prostate Take 4 tablets (1,000 mg total) by mouth daily. 120 tablet 12/04/2024 amLODIPine (NORVASC) 5 MG tablet Take 10 mg by mouth 2 (two) times a day. ascorbic acid, vitamin C, (VITAMIN C) 500 MG tablet Take 1,000 mg by mouth daily. aspirin 81 mg chewable tablet Take 81 mg by mouth every other day. cetirizine (ZYRTEC) 10 MG tablet Take by mouth as needed. 12/30/2022 cholecalciferol, vitamin D3, (VITAMIN D3 ORAL) Take 500 Units by mouth daily. colchicine, gout, (COLCRYS) 0.6 mg tablet Take 0.6 mg by mouth as needed. finasteride (PROSCAR) 5 mg tablet Take 5 mg by mouth daily. fluticasone propionate (FLONASE) 50 mcg/actuation nasal spray as needed. 12/30/2022 potassium citrate (UROCIT-K) 10 mEq SR tablet Take 40 mEq by mouth 2 (two) times a day with meals. Reports taking 4 tabs of 10mEq BID predniSONE (DELTASONE) 5 MG tabletIndications :Malignant neoplasm of prostate TAKE 1 TABLET BY MOUTH DAILY WITH BREAKFAST. START WHEN YOU START ABIRATERONE. 30 tablet 12/04/2024 tamsulosin (FLOMAX) 0.4 mg Cap Take 0.4 mg by mouth daily. documented as of this encounter Plan of Treatment Upcoming Encounters Date Type Department Care Team (Late st Contact Info) Description 07/19/2025 2:50 PM EDT Blood Draw [facility]leb [facility] [address] [place] [address] Bobo Nino DO [address] [place] [address] [email or web address] 07/19/2025 4:00 PM EDT Office Visit [facility] at [address] [address] Bobo Nino, [address] [place] [address] [email or web address] documented as of this encounter Procedures Procedure Name Priority Date/Time Associated Diagnosis Comments COMPREHENSIVE METABOLIC PANEL (CMP) Routine 01/18/2025 2:25 PM EDT Malignant neoplasm of prostate PSA DIAGNOSTIC (MONITORING) Routine 01/18/2025 2:25 PM EDT Malignant neoplasm of prostate CBC AND DIFFERENTIAL Routine 01/18/2025 2:25 PM EDT Malignant neoplasm of prostate documented in this encounter Results * PSA diagnostic (monitoring) (01/18/2025 2:25 PM EDT) PSA <0.01 0 - 4.00 ng/mL [facility] Comment: Test Methodology [employer] [id number] Patient results determined by assays using different manufacturers or methods may not be comparable. Blood 01/18/2025 2:25 PM EDT 01/18/2025 2:32 PM EDT us Bobo Nino DO LAB BLOOD BKR ORDERABLES Fi nal Result [address] [address] * (ABNORMAL) Comprehensive metabolic panel (01/18/2025 2:25 PM EDT) SODIUM 141 133 - 146 mmol/L [facility] POTASSIUM 4.8 3.3 - 5.1 mmol/L [facility] CHLORIDE 103 96 - 108 mmol/L [facility] CO2 27 21 - 35 mmol/L [facility] BUN 33(H) 6 - 19 mg/dL [facility] CREATININE 1.00 0.5 - 1.5 mg/dL [facility] GLUCOSE 144(H) 70 - 99 mg/dL [facility] ALBUMIN 4.0 3.9 - 4.8 g/dL [facility] TOTAL PROTEIN 6.3(L) 6.5 - 8.0 g/dL [facility] CALCIUM 9.3 8.4 - 10.3 mg/dL [facility] ALKALINE PHOSPHATASE 40 39 - 117 U/L [facility] TOTAL BILIRUBIN 0.5 0.0 - 1.2 mg/dL [facility] AST 16 0 - 37 U/L [facility] ALT 7 0 - 40 U/L [facility] GLOBULIN 2.3 1 - 4.8 g/dL [facility] EGFR 76 >59 mL/min/1.7 3m2 [facility] Comment:Estimated glomerular filtration rate calculated using the CKD-EPI refit equation. ANION GAP 16 10 - 20 mmol/L [facility] Blood 01/18/2025 2:25 PM EDT 01/18/2025 2:32 PM EDT us Bobo Nino DO LAB BLOOD BKR ORDERABLES Fi nal Result [address] [address] * (ABNORMAL) CBC and differential (01/18/2025 2:25 PM EDT) WBC 8.64 4.00 - 11.00 K/uL [facility] RBC 5.34 4.50 - 5.90 M/uL [facility] HGB 13.7 13.5 - 17.5 g/dL [facility] HCT 43.8 41.0 - 53.0 % [facility] PLT 152 150 - 450 K/uL [facility] MCV 82.0 80.0 - 100.0 fL [facility] MCH 25.7(L) 27.0 - 31.0 pg [facility] MCHC 31.3(L) 32.0 - 36.0 g/dL [facility] RDW 18.1(H) 11.5 - 14.5 % [facility] MPV 9.8 8.4 - 12.0 fL [facility] NRBC 0.00 0.00 /100 WBCs [facility] ABSOLUTE NRBC 0.00 0.00 K/uL [facility] DIFF METHOD Auto [facility] NEUTS 79.9(H) 48.0 - 76.0 % [facility] LYMPHS 11.2(L) 18.0 - 41.0 % [facility] MONOS 8.1 4.0 - 11.0 % [facility] EOS 0.3 0.0 - 5.0 % [facility] BASOS 0.2 0.0 - 1.5 % [facility] Granulocytes, immature (%) 0.3 0.0 - 0.9 % [facility] ABSOLUTE NEUTS 6.89 1.92 - 7.60 K/uL [facility] ABSOLUTE LYMPHS 0.97 0.72 - 4.10 K/uL [facility] ABSOLUTE MONOS 0.70 0.16 - 1.10 K/uL [facility] ABSOLUTE EOS 0.03 0.00 - 0.50 K/uL [facility] ABSOLUTE BASOS 0.02 0.00 - 0.15 K/uL [facility] Granulocytes, immature 0.03 0.00 - 0.09 K/uL [facility] Blood 01/18/2025 2:25 PM EDT 01/18/2025 2:32 PM EDT Bobo Nino DO LAB BLOOD BKR ORDERABLES Fi nal Result [address] [address] documented in this encounter Visit Diagnoses Diagnosis Malignant neoplasm of prostate documented in this encounter Care Teams Crop Or Grain Farmer Relationship Specialty Start Date End Date Richmond Avelar MD [address] [place] [address] PCP - General Family Medicine 11/03/22 Bobo Nino DO [address] [place] [address] [email or web address] Primary Oncologist Hematology and Oncology 10/20/22 Carol Bruno, TYSON [address] [place] [address] [email or web address] Nurse Practitioner Medical Oncology 10/25/23 documented as of this encounter Additional Source Comments The information contained in this document represents components of the legal health record. It is not the complete legal health record.[facility]
--- NOTE | 2025-01-24 14:17 | A.OFFPC_ITS ---
Vital Signs 01/24/25 14:28 Height 5 ft 11 in Weight 295 lb BMI 41.1 BP 106/68 Blood Pressure Location Lt brachial Position Sitting Respiration 12 Pulse 64 Pulse Source Pulse Oximeter Temp 97.5 F Temp Source Temporal Artery Scan Pulse Oximetry (%) 95 Oxygen Delivery Method Room Air Intake Visit Reasons: f/u renal mass Intake Note: Karmen presents in the office today for a follow up to a renal mass. Allergies topical bacitricin Allergy (Mild, Uncoded 01/10/25 09:52) rash Medication List - Last Reconciled 01/24/25 by Richmond Avelar MD amlodipine 10 mg (2 x 5 mg) PO DAILY 90 days aspirin (Adult Aspirin Regimen) 81 mg PO DAILY cetirizine 10 mg PO DAILY PRN cholecalciferol (vitamin D3) 50 mcg PO DAILY colchicine 0.6 mg PO DAILY PRN finasteride 5 mg PO DAILY fluticasone propionate 50 mcg/actuation (Flonase Allergy Relief) 1 spray intranasal Q12H 30 days lisinopril 20 mg PO DAILY 90 days metoprolol tartrate 25 mg PO BID Oxygen Home Use O2 at 2lpm via n/c while sleeping potassium citrate ER 20 mEq PO TID rosuvastatin 10 mg PO DAILY tamsulosin 0.4 mg PO DAILY Tobacco use date assessed: 01/24/25 Fall risk assessment: No Falls in past year Last assessed Fall Risk: 01/24/25 Dental Screening Dental Screen Date: 01/24/25 Did you have a dental visit in the last 12 months?: Yes Did you have a dental problem in the last 6 months where you did not have access to dental care?: No Was dental information given to patient?: Patient has dentist HPI f/u renal mass HPI Details 79 y/o male presents to f/u renal mass,[facility]. [facility] for [facility] cancer. Dedicated CT was ordered for renal mass but has not been scheduled yet. [facility] Medical History Obesity hypoventilation syndrome Morbid obesity Restrictive lung disease FH: cholecystectomy Arthritis of right ankle Prostate cancer High blood pressure Surgical History History of cardiac cath History of bilateral knee replacement History of carpal tunnel surgery History of ankle surgery Family History Mother Cardiovascular disease Cancer Father High blood pressure Social History (Updated 01/24/25 @ 14:28 by Jodie Cabrera CMA) Household Members: Spouse Housing: Other Housing Other:: cottage Are you a primary healthcare administration internship to a significant other at home: Yes Do you presently have visiting nurse or other home services: No 75 years or older and lives alone: No Alcohol intake: current Alcohol intake frequency: holidays/special occasions only Patient Tobacco Use Status: Never used Tobacco e-Cigarette/Vaping Use: Never Used Second Hand Smoke Exposure: No Use of substances other than those prescribed or required for medical reasons: No Special nikkie needs: Yes Special nikkie accommodation details: [employer] service: No Current occupational status: retired Cognitive needs: No Hearing needs: Yes Vision needs: Yes (patient wears glasses) Questionnaire Thrive Questionnaire Date Thrive assessed: 04/07/24 I am a: Patient What is your living situation today?: I have a steady place to live Within the past 12 months, did the food you bought not last and you didn't have the money to get more?: Never true Within the past 12 months, did you worry whether your food would run out before you got money to buy more?: Never true Do you have trouble paying for medicines?: No Do you have trouble getting transportation to medical appointments?: No Do you have trouble paying your heating and electricity bill?: No Do you have trouble taking care of your child, family member or friend?: No Do you have trouble with day-to-day activities such as bathing, preparing meals, shopping, managing finances, etc.?: No Are you currently unemployed and looking for a job?: No Are you interested in more education?: No Please select the resources that you would like help with: None Currently or been in a relationship where the following occur: No concerns reported THRIVE Score: 0 TRACE-7 AMB Questionnaire TRACE-7 Date TRACE - 7 assessed: 08/01/24 Source: Developed by Drs. Yusuf Perez, Klyah Wright, Tyler Paulson and colleagues, with an educational mamadou from [employer]. Review of Systems Const Denies chills, Denies fatigue, Denies fever(s), Denies headache(s) and Denies weakness ENT Denies dizziness and Denies headache(s) Card Denies dyspnea Resp Denies cough, Denies dyspnea, Denies wheezing and Denies other (shortness of breath) Musc Denies numbness and Denies tingling Neuro Denies dizziness, Denies headache(s), Denies numbness, Denies tingling and Denies weakness Psych Denies anxiety and Denies depression Endo Denies fatigue Aller/Immun Denies wheezing Physical exam (Primary Care) Vital Signs: Last Vital Signs Temp 97.5 F 01/24/25 14:28 Pulse 64 01/24/25 14:28 Resp 12 01/24/25 14:28 BP 106/68 01/24/25 14:28 Pulse Ox 95 01/24/25 14:28 Oxygen Delivery Method Room Air 01/24/25 14:28 BMI result Body Mass Index 41.1 Tobacco/Smoking Status: Tobacco use Status Tobacco use date assessed 01/24/25 01/24/25 14:32 Patient Tobacco Use Status Never used Tobacco 01/24/25 14:28 e-Cigarette/Vaping Use Never Used 01/24/25 14:28 Thrive Assessment: Date of Thrive Assessment Date Thrive assessed 04/07/24 01/24/25 14:17 Currently or been in a relationship where the following occur: No concerns reported Const General: well developed; No acute distress Nutritional Appearance: well nourished Orientation/consciousness: patient oriented x3 HENMT Head: Yes normocephalic and Yes atraumatic Eyes General: appearance normal, both eyes and all related structures Pupils: Equal, round and reactive pupils present EOM: EOMs intact bilaterally Resp Effort & Inspection: normal respiratory effort Neuro General: patient oriented x3 and gait normal Cranial nerves: Yes Equal, round and reactive pupils present Psych Affect: normal affect Coding Level of Care Code Est Pt Level 3 (48421) Diagnoses Prostate cancer C61 Left renal mass N28.89 Essential hypertension I10 Assessment & Plan Assessment & Plan (1) Prostate cancer: Code(s): C61 - Malignant neoplasm of prostate Category: Medical Plan: Now has completed course of Abiraterone Follow-up with urology as recommended (2) Left renal mass: Code(s): N28.89 - Other specified disorders of kidney and ureter Category: Medical Plan: Dedicated CT with renal protocol was ordered but has not been scheduled yet. Office staff is working on this and patient is aware Will schedule a follow-up appointment to discuss (3) Essential hypertension: Code(s): I10 - Essential (primary) hypertension Category: Medical Plan: Blood pressure is controlled. Goal is less 130/90 Continue current medications
[2025-01-24 14:28] VITALS: BP 106/68; PULSE 64; RESP 12; TEMP 36.4; O2SAT 95; BMI 41.1
--- OUTSIDE RECORDS SUMMARY | 2025-01-24 17:27 | XMS_ITS | Clinical Summary ---
Author Organization [facility] Address [address] [place] [address] Care Team Providers Care High School Social Studies Tutor Name Role Phone Bill Weiss MD Primary Care Provider [phone] Social History Tobacco Use Types Packs/Day Years [...] Vaccine (1 of 2) 1994 RSV Vaccine 50 years and old er and Patients (1 - 1-dose 75+ series) 08/22/2019 Influenza Vaccine 10/20/2024 COVID-19 Vaccine ( - 2023-2 5 season) 2024 Hepatitis B Vaccines Aged Out No long er eligible based on patient's age to complete this topic Medical Devices Implanted Type Area Or Assistant Device Identifier Shelf Expiration Date Model / Serial / Lot [id number] Lens Iol +20 Ceazr Mod C Bcnvx 13mm 6mm Posterior Chamber 1 - [id number] Implanted:Qty: 1 on 03/04/[facility] [employer] [id number] / [id number] / Description:DCB00 [id number] Lens Iol +18.5 Cezar Mod C Bcnvx 13mm 6mm Posterior Chamber 1 - [id number] Implanted:Qty: 1 on 03/18/2020 by Yusuf Carson MD at [facility] [place] [employer]ens [employer] [id number] / [id number] / Insurance [employer] MGD MEDICARE Care Teams High School Social Studies Tutor Relationship Specialty Start Date End Date Bill Weiss MD [address] [place] [address] PCP - General Internal Medicine 02/28/20
--- OUTSIDE RECORDS SUMMARY | 2025-01-24 17:27 | XMS_ITS | Clinical Summary ---
Author Organization [employer] [facility] Address [address] [place] [address] Care Team Providers Care Patient Carrier Name Role Phone Bill Weiss MD Primary Care Provider [phone] Allergies Active Allergy Reactions Criticality Noted Date [...] age to complete this topic Insurance [place] Care Teams Patient Carrier Relationship Specialty Start Date End Date Bill Weiss MD [address] [place] [address] PCP - General 01/09/21
--- OUTSIDE RECORDS SUMMARY | 2025-01-24 17:27 | XMS_ITS | Data Portability ---
Author Organization [place] - [facility], Allergy Address [address] [address] Care Team Providers Care Director Digital Catalogue Name Role Phone DWAYNE ANSARI Primary Care Provider [phone] Assessment Encounter Date Assessment Date Assessment LastModified [...] - Please book in October 025 09/14/19 [email or web address] [facility], [address] , [facility], [place], [address], 14:20:53 Medication Orders None recorded . Patient TargetsNo targets recorded. Patient Instructions Encounter Date Encounter Id Patient Instructions Last Modified By Organization Details Last Modified Time 09/13/2024 [id number] Please note: Parts of this encounter note [...] tissu e No observ ation record ed. [email or web address] [facility] [address] [facility], [place], [address], 10/26/2024 15:12:08 10/28/1906/15/2024 CT, angio gram, heart , w/ contr ast No observ ation record ed. [email or web address] Not Available 2024 09:49:38 11/01/1909/13/2024 US, abdom en + pelvi s No observ ation record ed. BARCODE Not Available 2024 11:03:19 12/02/1910/23/2024 US, neck, soft tissu e No observ ation record ed. [email or web address] [facility] [address], [place], [address], 12/01/2024 17:05:06 12/02/1910/23/2024 US, neck, soft tissu e No observ ation record ed. BARCODE [facility] [address] [place] [address], [address], 12/01/2024 15:44:47 Result Notes None recorded. 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 Procedures Surgical History Date Name Laterality Status Provider Name and Address Organization Details Recorded Time replacement of bilateral knee joints completed Kim Dahl [place] - [facility] 09/13/2024 14:44:00 cholecystectomy completed Kmi Dahl [place] [facility] 09/13/2024 14:44:33 re-release of carpal tunnel completed Kim Dahl [place] [facility] 09/13/2024 14:44:50 hernia repair completed Kim Dahl [place] [facility] 09/13/2024 14:45:06 excision of right kidney completed Kim Dahl [place] [facility] 09/13/2024 14:45:26 CT guided percutaneous microwave ablation of lesion of left kidney completed Kim Dahl [place] [facility] 09/13/2024 14:46:00 Imaging Results None recorded. Procedure Notes None recorded. Medical Equipment None Reported. Allergies Allergen ID Allergen Name Allergen Category Reaction Reaction Severity Criticality Documentation Date Start Date Code Code System Note Provider Name and Address Organization Details Recorded Time 700711 Bactroban medicatio n Not available Not available Not available 09/13/2024 89979 1 RxNorm Kim black [place] [facility] 14:42:34 Medications Name Sig Start Date [...] Updated DateTime 09/13/2024 177.8 cm 42.9 kg/m2 732448.12 g Kim Dahl [place] - [facility] 09/13/2024 14:40:35 Social History None recorded. Functional Status None recorded. Mental Status None recorded. Family History Nothing Reported. 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 123734916 D37.318 5095885 Parotid cyst 898244043 K 11.6 8820689 History of malignant neoplasm of prostate 245267118 Z85.46 10661 Health Concerns Section Related Observation LastModified by Organization Detai ls LastModified Time None Recorded Concern Status LastModified by Organization Details LastModified Time None Recorded Advance Directives Directive None Recorded Payers Insurance Date Sequence Insurance Name Policy Number Policy Flores Covered Member ID Flores Member ID Guarantor Name 09/13/2024 1 [employer] (MEDICARE REPLACEMENT/ ADVANTAGE - PPO) [id number] Karmen Jackson [id number] Karmen Jackson Notes Date Note Type Note [...] management for prostate cancer. JENI LEBLANC MD [address] [place] [address], [address], [facility] - [facility] 09/13/2024 14:56:41
--- OUTSIDE RECORDS SUMMARY | 2025-01-24 17:27 | XMS_ITS | Encounter Summary ---
Author Organization [facility] Address [address] [place] [address] Care Team Providers Care Ethylbenzene Cracking Supervisor Name Role Phone Bill Weiss MD Primary Care Provider [phone] Encounter Details Date Type Department Care Team ([facility] st Contact Info) Description 01/09/2021 Procedure Pass [facility], Radiology (CT Scan) [address] [place] [address] Social History Tobacco Use Types Packs/Day Years [...] on filedocumented in this encounter Care Teams Ethylbenzene Cracking Supervisor Relationship Specialty Start Date End Date Bill Weiss MD [address] [place] [address] PCP - General 01/09/21 documented as of this encounter
--- OUTSIDE RECORDS SUMMARY | 2025-01-24 17:27 | XMS_ITS | Clinical Summary ---
Author Organization [facility] Address [address] [address] Phone Care Team Providers Care Combine Mechanic Name Role Phone Bobo Nino Elidia DO Unavailable [phone] Richmond Avelar MD Primary Care Provider Carol [...] Encounters Date Type Department Care Team Description 01/18/2025 3:30 PM EDT Office Visit [facility] at [address] [address] Bobo Nino, Malignant neoplasm of prostate (Primary Dx) 01/18/2025 2:25 PM EDT - 01/18/2025 11:59 PM EDT Hospital Encounter [facility] [address] [place] [address] Bobo Nino, Discharge Disposition: Home or Self Care 12/30/2024 Refill [facility] at [address] [address] Calista Brown, ELECTRIC SEALING MACHINE OPERATOR Medication Refill 12/04/2024 Orders Only [facility] at [address] [address] Calista Brown, ELECTRIC SEALING MACHINE OPERATOR Malignant neoplasm of prostate 12/04/2024 Refill [facility] at [address] [address] Reshma Byrnes, partner management consultant Refill 12/03/2024 Refill [facility] at [address] [address] iAxa Mclain NP Medication Refill from Last 3 Months Immunizations Immunization Administration [...] Sign Reading Time Taken Comments Blood Pressure 116/69 01/18/2025 2:44 PM EDT Pulse 95 01/18/2025 2:44 PM EDT Temperature 36.4 C (97.6 F) 01/18/2025 2:44 PM EDT Respiratory Rate - - Oxygen Saturation 94% 01/18/2025 2:44 PM EDT Inhaled Oxygen Concentration - - Weight 113.4 kg (249 lb 14.4 oz) 01/18/2025 2:42 PM EDT Height 171 cm (5' 7.32 ) 01/18/2025 2:42 PM EDT Body Mass Index 38.77 01/18/2025 2:42 PM EDT Plan of Treatment Upcoming Encounters Date Type Department Care Team ([facility] Contact Info) Description 07/19/2025 2:50 PM EDT Blood Draw [facility] [address] [place] [address] Bobo Nino, DO [address] [place] [address] [email or web address] 07/19/2025 4:00 PM EDT Office Visit [facility] [place] [address] [place] [address] Bobo Nino, DO [address] [place] [address] [email or web address] Health Maintenance Due Date Last Done Comments Adult Td,Tdap Booster 1945 LIPID PANEL 1944 DEPRESSION SCREENING 1956 PNEUMOCOCCAL VACCINES (50+ years) (1 of 2 - PCV) 08/22/1963 ZOSTER VACCINES (1 of 2) 08/22/1963 INFLUENZA VACCINE (#1) 2024 , 01/14/2023, 01/07/2022 COVID-19 VACCINE ( season) 2024 01/14/2023, 01/07/2022, 05/24/2020, Additional history [...] Associated Diagnosis Comments PSA DIAGNOSTIC (MONITORING) Routine 01/18/2025 2:25 PM EDT Malignant neoplasm of prostate COMPREHENSIVE METABOLIC PANEL (CMP) Routine 01/18/2025 2:25 PM EDT Malignant neoplasm of prostate CBC AND DIFFERENTIAL Routine 01/18/2025 2:25 PM EDT Malignant neoplasm of prostate from Last 3 Months Results * (ABNORMAL) Comprehensive metabolic panel (01/18/2025 2:25 PM EDT) SODIUM 141 133 - 146 mmol/L [facility] POTASSIUM 4.8 3.3 - 5.1 mmol/L [facility] CHLORIDE 103 96 - 108 mmol/L [facility] CO2 27 21 - 35 mmol/L [facility] BUN 33(H) 6 - 19 mg/dL [facility] CREATININE 1.00 0.5 - 1.5 mg/dL [facility] GLUCOSE 144(H) 70 - 99 mg/dL [facility] ALBUMIN 4.0 3.9 - 4.8 g/dL [facility] TOTAL PROTEIN 6.3(L) 6.5 - 8.0 g/dL [facility] CALCIUM 9.3 8.4 - 10.3 mg/dL [facility] ALKALINE PHOSPHATASE 40 39 - 117 U/L [facility] TOTAL BILIRUBIN 0.5 0.0 - 1.2 mg/dL [facility] AST 16 0 - 37 U/L [facility] ALT 7 0 - 40 U/L [facility] GLOBULIN 2.3 1 - 4.8 g/dL [facility] EGFR 76 >59 mL/min/1.7 3m2 [facility] Comment:Estimated glomerular filtration rate calculated using the CKD-EPI refit equation. ANION GAP 16 10 - 20 mmol/L [facility] Blood 01/18/2025 2:25 PM EDT 01/18/2025 2:32 PM EDT us Bobo Nino DO LAB BLOOD BKR ORDERABLES Fi nal Result [facility] [address] [place] [address] * PSA diagnostic (monitoring) (01/18/2025 2:25 PM EDT) PSA <0.01 0 - 4.00 ng/mL [facility] Comment: Test Methodology Martha e801 Patient results determined by assays using different manufacturers or methods may not be comparable. Blood 01/18/2025 2:25 PM EDT 01/18/2025 2:32 PM EDT us Broussard W Mica DO LAB BLOOD BKR ORDERABLES Fi nal Result [address] [address] * (ABNORMAL) CBC and differential (01/18/2025 2:25 PM EDT) WBC 8.64 4.00 - 11.00 K/uL [facility] RBC 5.34 4.50 - 5.90 M/uL [facility] HGB 13.7 13.5 - 17.5 g/dL [facility] HCT 43.8 41.0 - 53.0 % [facility] PLT 152 150 - 450 K/uL [facility] MCV 82.0 80.0 - 100.0 fL [facility] MCH 25.7(L) 27.0 - 31.0 pg [facility] MCHC 31.3(L) 32.0 - 36.0 g/dL [facility] RDW 18.1(H) 11.5 - 14.5 % [facility] MPV 9.8 8.4 - 12.0 fL [facility] NRBC 0.00 0.00 /100 WBCs [facility] ABSOLUTE NRBC 0.00 0.00 K/uL [facility] DIFF METHOD Auto [facility] NEUTS 79.9(H) 48.0 - 76.0 % [facility] LYMPHS 11.2(L) 18.0 - 41.0 % [facility] MONOS 8.1 4.0 - 11.0 % [facility] EOS 0.3 0.0 - 5.0 % [facility] BASOS 0.2 0.0 - 1.5 % [facility] Granulocytes, immature (%) 0.3 0.0 - 0.9 % [facility] ABSOLUTE NEUTS 6.89 1.92 - 7.60 K/uL [facility] ABSOLUTE LYMPHS 0.97 0.72 - 4.10 K/uL [facility] ABSOLUTE MONOS 0.70 0.16 - 1.10 K/uL [facility] ABSOLUTE EOS 0.03 0.00 - 0.50 K/uL [facility] ABSOLUTE BASOS 0.02 0.00 - 0.15 K/uL [facility] Granulocytes, immature 0.03 0.00 - 0.09 K/uL [facility] Blood 01/18/2025 2:25 PM EDT 01/18/2025 2:32 PM EDT us Bobo W Mica DO LAB BLOOD BKR ORDERABLES Fi nal Result [facility] [address] [place] [address] from Last 3 Months Insurance [employer] PPO MEDICARE REPLACEMENT AETNA O MEDICARE REPLACEMENT AET[employer] PPO MEDICARE REPLACEMENT [employer] PPO MEDICARE REPLACEMENT [employer] PPO MEDICARE REPLACEMENT [employer] PPO MEDICARE REPLACEMENT Care Teams Combine Mechanic Relationship Specialty Start Date End Date Richmond Avelar MD [address] [place] [address] PCP - General Family Medicine 11/03/22 Bobo Nino DO [address] [place] [address] [email or web address] Primary Oncologist Hematology and Oncology 10/20/22 Carol Bruno CNP [address] [place] [address] [email or web address] Nurse Practitioner Medical Oncology 10/25/23 Additional Source Comments The information contained in this document represents components of the legal health record. It is not the complete legal health record.[facility]
--- OUTSIDE RECORDS SUMMARY | 2025-01-24 17:27 | XMS_ITS | Data Portability ---
Author Organization [facility] Address [address] [place] [address] Care Team Providers Care Distribution District Supervisor Name Role Phone DWAYNE ANSARI Primary Care Provider Assessment Encounter Date Assessment Date Assessment LastModified by Organization Details LastModified Time 03/30/2024 03/30/2024 Karmen presents for a right [...] agrees to the plan, all questions answered. [email or web address] Not available 03/30/2024 14:58:53 Plan of Treatment Reminders Order Date Submit Date Provider Last Modified By Organization Details Last Modified Time Details Appointments RECHECK 15 2024 02:45P Ethan Torres PA-C Not available Not available Not available Lab None recorded . Referral None recorded . Procedures None recorded . Surgeries None recorded . Imaging None recorded . Medication Orders None recorded . Patient TargetsNo targets recorded. Patient InstructionsNo instructions recorded. Reason for Referral None Reported. Problems Name Problem SNOMED Code Status Onset Date Resolution Date Notes Provider Name and Address Organization Details Recorded Time Localized, primary osteoarthritis of the ankle and/or foot 405189928 Active 2023 Raciel Adrian MD [address] [facility] [address], [place], [address] , [facility] 12:24:58 Problem Notes None recorded. Procedures Surgical History Date Name Laterality Status Provider Name and Address Organization Details Recorded Time 5 Sports Shoulder 4&1 completed Samson Torres PA-C [address] [facility], [place], [address], [facility] 12/12/2024 09:15:12 5 Sports Shoulder 4&1 completed Samson Torres PA-C [address], [place], [address], [facility] 09/03/2024 09:26:51 5 Sports Shoulder 4&1 completed Samson Torres PA-C [address], [place], [address], [facility] 06/06/2024 11:18:50 5 Ankle Joint Asp & Inj, L/R Celestone 2cc completed Raciel Adrian MD [address] [facility], [place], [address], [facility] 03/30/2024 14:58:09 4 Sports Shoulder completed Vanessa Flood MD [address] [facility], [place], [address], [facility] 03/07/2024 15:26:29 4 Ankle Joint Asp & Inj, L/R Celestone 2cc completed Raceil Adrian MD [address] [facility], [place], [address], [facility] 12/14/2023 13:05:55 4 Sports Shoulder completed Vanessa Flood MD [address], [place], [address], [facility] 12/13/2023 14:13:55 4 Ankle Joint Asp & Inj, L/R Celestone 2cc completed Raciel Adrian MD [address], [place], [address], [facility] 08/16/2023 19:52: 6 Ankle/Foot Surgery completed DONALD VILLANUEVA [facility] 12/13/2023 13:31:24 Knee Surgery completed DONALD KAY [facility] 12/13/2023 13:31:24 Imaging Results None recorded. Procedure Notes None recorded. Medical Equipment None Reported. Allergies Allergen ID Allergen Name Allergen Category Reaction Reaction Severity Criticality Documentation Date Start Date Code Code System Note Provider Name and Address Organization Details Recorded Time 763947 bacitraci n medicatio n Not available Not available Not available 07/30/2023 1291 RxNorm Fatou Elias black [facility] 10:32:16 Medications Name Sig Start Date Stop [...] Updated DateTime 03/30/2024 177.8 cm 42.2 kg/m2 258887.16 g Fatou Griffin [facility] 03/30/2024 12:56:31 Date Recorded Body height Body mass index (BMI) Body weight Provider Name and Address Organization Details Last Updated DateTime 06/08/2024 177.8 cm 42.2 kg/m2 248940.16 g Ameena Pennington [facility] 06/08/2024 09:16:40 Date Recorded Body height Body mass index (BMI) Body weight Provider Name and Address Organization Details Last Updated DateTime 09/06/2024 177.8 cm 42.2 kg/m2 283025.16 g Ameena Gorge [facility] 09/06/2024 09:28:57 Date Recorded Body height Body mass index (BMI) Body weight Provider Name and Address Organization Details Last Updated DateTime 12/13/2024 177.8 cm 42.2 kg/m2 542717.16 g Ameena Gorge [facility] 12/13/2024 15:26:47 Date Recorded Body height Body mass index (BMI) Body weight Provider Name and Address Organization Details Last Updated DateTime 03/07/2024 177.8 cm 42.2 kg/m2 873665.16 g DONALD KAY [facility] 03/07/2024 14:28:46 Social History Question Answer Notes LastModified by [employer] Details LastModified Time Tobacco Smoking Status Never [facility] 12/13/2023 13:31:24 What Is Your Relationship Status? Information not available 12/13/2023 Sex: Unknown Functional Status Question Answer Note LastModified by [employer]ingo[employer]OrderGroove ion Details LastModified Time How many times per [...] History Nothing Reported. Medical History Condition Response Kidney/Bladder Problems Y Arthritis Y Cancer Y Hypertension Y Past Encounters Encounter ID Performer Location Encounter Start Date Encounter Closed Date Diagnosis/Indication Diagnosis SNOMED-CT Code Diagnosis ICD10 Code Diagnosis IMO Codes Diagnosis Note [id number] MD Jazzy Velasco [address] [facility] [place] [address] 07/30/2023 09:55:18 08/24/2023 12:40:04 Pain of right ankle joint 9101521646 0778571 M25.571 Localized, primary osteoarthritis of the ankle and/or foot 950358305 M19.298 [id number] MD Jason Velasconimateo [address] [place] [address] 08/13/2023 14:34:10 09/01/2023 13:51:52 Localized, primary osteoarthritis of the ankle and/or foot 326182538 M19.079 Pain of ri ght ankle joint 1138156437 2345344 M25.161 [id number] MD Jazzy Velasco [address] [place] [address] 10/12/2023 12:39:00 10/27/2023 13:33:33 Localized, primary osteoarthritis of the ankle and/or foot 311440835 M19.079 Pain of ri ght ankle joint 1129326360 2470195 M25.072 [id number] MD Jason Velascomateo [address] [place] [address] 12/14/2023 12:39:34 12/24/2023 15:23:56 Localized, primary osteoarthritis of the ankle and/or foot 688249011 M19.079 Pain of ri ght ankle joint 2032256676 9232142 M25.754 [id number] MD Jazzy Pimentel [address] [place] [address] 12/13/2023 13:18:08 01/04/2024 10:22:36 Pain of right shoulder joint 0451555927 5228725 M25.196 [id number] MD Jason Pimentelnimateo [address] [place] [address] 03/07/2024 14:24:28 03/30/2024 10:20:14 Rotator cuff arthropathy of right shoulder 1429315789 5589787 M12.811 [id number] [id number] Raciel Adrian MD [facility] - [facility] [address] [place] [address] 03/30/2024 12:49:31 04/13/2024 12:24:27 Localized, primary osteoarthritis of the ankle and/or foot 280576085 M19.422 [id number] ADITI Leung Olena Dunnmate[address] [place] [address] 06/08/2024 09:12:32 06/27/2024 10:07:37 Osteoarthritis of joint of right shoulder region 5796280541 10750 M19.155 6899460 [id number] ADITI Leung Olena [address] [place] [address] 09/06/2024 09:09:31 09/21/2024 15:43:10 Osteoarthritis of joint of right shoulder region 1077168395 95704 M19.648 7026850 [id number] ADITI Leung Olena Prucell [address] [place] [address] 12/13/2024 15:10:16 12/21/2024 10:25:57 Osteoarthritis of joint of right shoulder region 6921408191 87452 M19.009 [id number] Health Concerns Section Related Observation LastModified by Organization Detai ls LastModified Time None Recorded Concern Status LastModified by Organization Details LastModified Time None Recorded Advance Directives Directive None Recorded Payers Insurance Date Sequence Insurance Name Policy Number Policy Flores Covered Member ID Flores Member ID Guarantor Name 12/21/2024 1 [employer] (MEDICARE REPLACEMENT/ ADVANTAGE - PPO) [id number] Karmen Jackson [id number] Karmen Jackson Notes Date Note Type Note Provider Name and Address Organization Details Recorded Time 03/07/2024 text/html Issue: Right shoulder cuff tear arthropathy Interval History:This is a 78-year-old wzwbw-glxt-hdaidodr retired gentleman who presents to clinic today [...] the Right shoulder ordered and obtained at [facility] 12/13/2023 were reviewed during the visit. [...] at that time if at all useful. [facility] speech recognition clinical pharmacologist software was used to create portions of this document. An attempt at proofreading has been made to minimize errors. Please call for corrections. Vanessa Flood MD [address], [place], [address], [facility] 03/07/2024 15:29:48 06/08/2024 text/html I am seeing [...] space of the right shoulder. Follow up p.r.n. Samson Torres PA-C [email or web address], [place], [address], [facility] 06/08/2024 09:30:50 09/06/2024 text/html I am seeing [...] shoulder. Follow up torin Torres PA-C [address], [place], [address], [facility] 09/06/2024 09:51:53 12/13/2024 text/html I am seeing the patient today under the supervision of Dr. Nelson who was available but who did not see the patient. HPI: Patient returns for follow-up of right shoulder pain. Patient has noted glenohumeral joint arthritis of the right shoulder. Patient has been [...] shoulder. Range of motion of the shoulder: Decrease in all planes with pain and crepitus. 4-5 strength of the right shoulder. Peripheral, vascular, lymphatic examination, skin, neurological, coordination, reflexes, sensation are within normal limits. 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 Plan: Reviewed diagnosis with the patient today in the office. Discussed role of conservative management versus total shoulder arthroplasty. Activity modification discussed. P.r.n. Tylenol or NSAIDs can be used. Discussed the role of injection therapies. Injected the glenohumeral joint of the right shoulder. Follow up torin Torres PA-C [address], [place], [address], [facility] 12/13/2024 15:36:04
--- OUTSIDE RECORDS SUMMARY | 2025-01-24 17:27 | XMS_ITS | Encounter Summary ---
Author Organization [facility] Address [address] [place] [phone] Phone Care Team Providers Care Senior Hardware Design Engineer Name Role Phone Bobo Nino Elidia DO Unavailable [phone] Richmond Avelar MD Primary Care Provider Carol Bruno CNP Unavailable Reason for Visit * Reason Comments Medication Refill Encounter Details Date Type Department Care Team (Late st Contact Info) Description 12/30/2024 Refill [facility] at [address] [address] Calista Brown FNP [address] [place] [address] [email or web address] Medication Refill Social History Tobacco Use Types [...] as of this encounter Progress Notes * Dora Yaramike Alejandre - 01/02/2025 7:14 AM EDT TOBRIAN documented in this encounter Plan of Treatment Upcoming Encounters Date Type Department Care Team (Late st Contact Info) Description 07/19/2025 2:50 PM EDT Blood Draw [facility] [address] [place] [address] Bobo Nino DO [address] [place] [phone] [email or web address] 07/19/2025 4:00 PM EDT Office Visit [facility] at [address] [address] Bobo Nino DO [address] [place] [address] [email or web address] documented as of this encounter Visit Diagnoses Diagnosis Malignant neoplasm of prostate documented in this encounter Care Teams Senior Hardware Design Engineer Relationship Specialty Start Date End Date Richmond Avelar MD [address] [place] [id number] PCP - General Family Medicine 11/03/22 Bobo Nino DO [address] [place] [address] [email or web address] Primary Oncologist Hematology and Oncology 10/20/22 Carol Bruno CNP [address] [place] [id number] [email or web address] Nurse Practitioner Medical Oncology 10/25/23 documented as of this encounter Additional Source Comments The information contained in this document represents components of the legal health record. It is not the complete legal health record.[facility]
--- OUTSIDE RECORDS SUMMARY | 2025-01-24 17:27 | XMS_ITS | Encounter Summary ---
Author Organization [facility] Address [address] [place] [phone] Phone Care Team Providers Care Jewel Hole Driller Name Role Phone Bobo Nino Elidia DO Unavailable [phone] Richmond Avelar MD Primary Care Provider Aixa Mclain HITCHER Unavailable [phone] Carol Bruno SUPERVISOR SAMPLE PREPARATION Unavailable Encounter Details Date Type Department Care Team (Late st Contact Info) Description 12/08/2022 Procedure Pass [facility] [address] [place] [address] Social History Tobacco Use Types Packs/Day Years [...] EDT Blood Draw [facility] Ph[facility] [address] [place] [address] Bobo Nino, DO [address] [place] [address] [email or web address] 07/19/2025 4:00 PM EDT Office Visit [facility] [address] [place] [address] Bobo Nino, DO [address] [place] [address] [email or web address] documented as of this encounter Visit Diagnoses Not on filedocumented in this encounter Care Teams Jewel Hole Driller Relationship Specialty Start Date End Date Richmond Avelar MD [address] [place] [phone] PCP - General Family Medicine 11/03/22 Bobo Nino DO [address] [place] [phone] [email or web address] Primary Oncologist Hematology and Oncology 10/20/22 Aixa Mclain HITCHER [address] [place] [address] [email or web address] Nurse Practitioner Medical Oncology 01/26/23 07/16/24 Carol Bruno CNP [address] [place] [address] [email or web address] Nurse Practitioner Medical Oncology 10/25/23 documented as of this encounter Additional Source Comments The information contained in this document represents components of the legal health record. It is not the complete legal health record.[facility]
--- OUTSIDE RECORDS SUMMARY | 2025-01-24 17:27 | XMS_ITS ---
Author Organization [facility] Address [address] [place] [phone] Phone Care Team Providers Care Contract Negotiation Specialist Name Role Phone Bobo Nino DO Unavailable Richomnd Avelar MD Primary Care Provider Carol Bruno SANDWICH BOARD CARRIER Unavailable Active Problems Patient Care Coordination No [...]
== END 2025-01-24 15:08 | disposition home or self-care (01) ==
LOC: HO.HMCFM 14:14
PROVIDERS: PCP Family Medicine; Visit Provider Family Medicine
DX: C61 Malignant neoplasm of prostate (principal); N28.89 Other specified disorders of kidney and ureter; I10 Essential (primary) hypertension

== ENCOUNTER → 2025-01-24 14:13 | Outpatient (BNVA) | payer MEDICARE, SELFPAY | PROVIDERS: PCP Family Medicine; Visit Provider Family Medicine | DX: C61 Malignant neoplasm of prostate (principal); N28.89 Other specified disorders of kidney and ureter; I10 Essential (primary) hypertension | CPT/HCPCS: 99212 ==

== ENCOUNTER 2025-02-28 10:16 | Outpatient (REF) | payer MEDICARE, SELFPAY ==
[2025-02-28 16:25] LABS: Anion Gap 14 (12-20); Blood Urea Nitrogen 26 mg/dL (9-16); Calcium 9.2 mg/dL (8.4-10.2); Carbon Dioxide 28 mmol/L (22-29); Chloride 105 mmol/L (96-108); Estimated Glomerular Filt Rate 57; Potassium 5.0 mmol/L (3.3-5.1); Sodium 142 mmol/L (135-145)
== END 2025-02-28 10:17 ==
LOC: HO.WFDLDS 10:16
PROVIDERS: Visit Provider Family Medicine
DX: Z00.00 Encounter for general adult medical examination without abnormal findings (principal)
CPT/HCPCS: 36415; 80048